=== PATIENT | female | born 1940 | race Caucasian/White ===

== ENCOUNTER 2017-11-04 07:59 | Day surgery (SDC) | payer MEDICARE, OTHER, SELFPAY ==
[2017-11-04 08:32] VITALS: BP 144/68; PULSE 78; RESP 18; TEMP 36.4; O2SAT 99
[2017-11-04 08:51] LABS: Bedside Glucose 262 mg/dL (70-110)
--- NOTE | 2017-11-04 09:35 | COLBX_PTH ---
PATIENT: NOELLE DIXON LOC: [facility] U#:[id number] AGE/SX: 77/F ROOM: RE11/04/[address]: Dr. Javier Dunbar MD : [id number] BED: DIS: 11/04/2017 SPEC #: [id number] RECD: 11/04/17 10:19 STATUS: JAZMÍN SUSAN #: [id number] COSTA: 11/04/17 09:[address]: Javier Dunbar DEPT: SURGICAL PATHOLOGY RECD BY: Itz Castillo ENTERED: 11/04/17 12:12 SP TYPE: COLON BX OT DR: Dr. Wili Dunbar III, MD Tissues: Sigmoid colon biopsy Procedures: Surgery Specimen Level IV HEADER OPERATION: Colonoscopy with biopsy PRE-OP DIAGNOSIS: History colon polyps TISSUE SUBMITTED: Proximal sigmoid polyp biopsy MICROSCOPIC DIAGNOSIS Proximal sigmoid colon polyp, biopsy: Fragments of tubular adenoma. AM:francisco 11/05/17 COMMENT Case has been reviewed in consultation with Dr. Rodriguez who concurs with the above diagnosis. IDC:SJ MICROSCOPIC DESCRIPTION Slides are reviewed. GROSS DESCRIPTION Received in fixative is one container labeled with the patient's name and designated proximal sigmoid polyp biopsy. The specimen consists of multiple irregular fragments of light murillo soft tissue that in aggregate measure 0.8 x 0.3 x 0.1 cm. The specimen is totally submitted in one cassette. / MILI:francisco 11/04/17 TC:5 CPT: 45265
--- NOTE | 2017-11-04 09:43 | PCM.OPRPT ---
Problem List (1) Personal history of colonic polyps Status: Acute Report of Operation Date of Procedure: 11/04/17 Pre-Operative Diagnosis: Personal history of colon polyps Post-Operative Diagnosis: Diminutive polypoid mucosa the proximal sigmoid colon extensive descending and sigmoid diverticulosis Surgery/Procedure Performed:: Colonoscopy with cold forcep biopsy of the proximal sigmoid colon Description of Surgical Findings:: Amount and informed consent was obtained. 77-year-old female was taken to the endoscopy suite. She underwent monitored anesthesia care. Digital rectal exam performed. Lax anal tone. Moderate hemorrhoidal changes. Flexible colonoscope inserted in the rectum advanced through a tortuous left colon. The scope was then readily advanced to the transverse colon by placing the patient supine I was able to get the scope to go to the cecum. The cecum ileocecal valve was nicely achieved. The scope was carefully withdrawn from the ascending colon transverse colon descending colon and sigmoid. Bowel prep was good. An incredibly careful inspection of the cecum was performed because the patient's history of previous colon polyps in that location. None were identified. There was moderately severe sigmoid and descending colon diverticulosis. A diminutive 5 mm diameter polypoid-like flat lesion of the proximal sigmoid identified. Cold forceps were used to sample and eradicate this area. The scope was retroflexed within the rectum the anorectal verge inspected moderate hemorrhoidal changes noted no active bleeding. Excess fluid nurse aspirated free the procedure was completed with the patient tolerated it well. Impression Diminutive polypoid mucosa of the proximal sigmoid colon with final pathology pending. Extensive sigmoid and descending diverticulosis. No evidence for acute pathology. The patient's previous colonoscopy was July 20, 2014. She will likely not require another colonoscopy for at least 5 years and then that will be health pending. The scope exam was started 0924. The cecum was reached at 0930.43. The procedure was completed at 0939.54. Cc: Dr. Wili Dunbar, III Javier Dunabr M.D., F.A.C.S. Type of Anesthesia:: MAC
[2017-11-04 09:45] VITALS: BP 111/50; BP 144/68; PULSE 72; RESP 15; TEMP 36.6; O2SAT 100
[2017-11-04 09:50] VITALS: BP 122/66; BP 144/68; PULSE 72; RESP 18; O2SAT 100
[2017-11-04 09:55] VITALS: BP 129/54; BP 144/68; PULSE 72; RESP 18; O2SAT 98
[2017-11-04 10:00] VITALS: BP 131/68; BP 144/68; PULSE 73; RESP 18; TEMP 36.2; O2SAT 100
[2017-11-04 10:29] VITALS: BP 144/68
== END 2017-11-04 10:30 | disposition home or self-care (01) ==
LOC: EN 08:00 → AC 08:02
PROVIDERS: Family Provider Family Medicine; PCP Family Medicine; Visit Provider Surgery
PROC: 0DJD8ZZ Inspection of Lower Intestinal Tract, Via Natural or Artificial Opening Endoscopic (ICD-10-PCS; CPT 45378; principal; 2017-11-04 09:10)
DX: D12.5 Benign neoplasm of sigmoid colon (principal); Z86.010 Personal history of colon polyps; K57.30 Diverticulosis of large intestine without perforation or abscess without bleeding; Z79.82 Long term (current) use of aspirin; Z79.899 Other long term (current) drug therapy; K21.9 Gastro-esophageal reflux disease without esophagitis; E11.9 Type 2 diabetes mellitus without complications; G47.30 Sleep apnea, unspecified; I10 Essential (primary) hypertension; Z87.891 Personal history of nicotine dependence; Z85.42 Personal history of malignant neoplasm of other parts of uterus
CPT/HCPCS: 45380; 82962; 88305; J7120

== ENCOUNTER 2019-03-15 11:39 | Emergency (ER) | payer MEDICARE, OTHER, SELFPAY ==
[2019-03-15 11:40] VITALS: BP 121/52; PULSE 114; RESP 16; TEMP 36.8; O2SAT 95; BMI 32.3
--- NOTE | 2019-03-15 11:59 | RAD_ITS ---
STUDY: X-RAY - PELVIS AND LEFT HIP REASON FOR EXAM: Left hip pain, fall. TECHNIQUE: 2 views of the pelvis and hip. COMPARISON: None. FINDINGS: There is vascular calcification. There are mildly dilated loops of small bowel. Normal bilateral iliac wings, sacroiliac joints and visualized sacrum. Normal bilateral superior and inferior pubic rami. Normal pubic symphysis. Normal bilateral ischial tuberosities. Normal visualized femoral head. Normal acetabulum. Normal hip joint. RAD/HIP, UNI W/ Pelvis 2-3 Views IMPRESSION: No demonstrated fracture. Mildly dilated loops of small bowel. Electronically Signed: Gallito Laboy MD at 14:28 EDT Tel , Service support ,
--- NOTE | 2019-03-15 11:59 | CT_ITS ---
STUDY: CT BRAIN WITHOUT CONTRAST REASON FOR EXAM: Female, 78 years old. Lost balance and fell RADIATION DOSAGE (If Supplied By Facility): CTDIvol = ( 44.99 ) mGy, DLP = ( 779.24 ) mGycm TECHNIQUE: Transaxial CT imaging of the brain was performed without administration of intravenous contrast material. Individualized dose optimization techniques were used for this CT. COMPARISON: No relevant priors. FINDINGS: EXAM DESCRIPTION: CT head without contrast CLINICAL HISTORY: 78 years Female, COMPARISON: None. TECHNIQUE: A CT scan of the head was performed without IV contrast in the axial plane. Coronal and sagittal reconstruction images were also obtained. This exam was performed according to our departmental dose-optimization program, which includes automated exposure control, adjustment of the mA and/or kV according to patient size and/or use of iterative reconstruction technique. FINDINGS: The avtar, medulla, and cerebellum appear to be normal. The ventricles and sulci are normal in size and shape. The basal ganglia appear to be normal. The inner and outer tables of the skull are intact. The frontal, ethmoid, maxillary, and sphenoid sinuses are normal. The mastoid air cells are normal. CT/Brain/Head without Contrast IMPRESSION: Normal CT scan of the head. Electronically Signed: Antonio Salamanca, at 13:25 EDT Tel , Service support ,
--- NOTE | 2019-03-15 14:51 | ED.DCSUM_ITS ---
- ER Visit Summary Date of Service: 03/15/19 Chief Complaint: Fall with hip pain History of Present Illness: The patient is a 78 F who states that she sustained a fall today when her legs gave out on her. She states she has a history of her legs giving out and falling. She tells me that she did strike the right side of her head in addition to the left hip. She states that typically she is not able to get up on her own and so she has quite help her up. This time she was transported here. She denies being on blood thinners. Physical Examination: Afebrile vital signs stable Gen: Well-nourished well-developed Head: Normocephalic atraumatic Eyes: Perrl EOMI ENT: TMs clear no rhinorrhea moist mucous membranes Neck: Supple no lymphadenopathy no JVD nontender CVS: Regular rate rhythm no murmurs normal S1-S2 Respiratory: No distress clear to auscultation bilaterally chest nontender Abdomen: Soft nontender nondistended normal bowel sounds no masses Back: Nontender Extremity: There is tenderness to palpation over the left greater trochanter. Negative logroll. No ecchymosis noted. No deformity noted. Neurovascular intact. Skin: Normal color no rash Neuro: alert orientated ?3 CN II-XII intact normal strength sensation Psych: Normal affect normal mood Test Results: CT brain and x-rays of the hip and pelvis were negative for acute. Emergency Department Course and Treatment: Patient has a walker at home therefore we got her up and she walks strongly with the walker here in the department. She will be discharged home instructions to follow-up with her doctors. Impression: 1. Fall 2. Left hip contusion 3. Head injury This note was generated with [employer] dictation software. It may contain incorrect words, spelling, and punctuation that were not noted in review of the chart prior to signing ED Disposition - Plan for ED Patient: Disposition: Home or Assisted Living Instructions: CONTUSION, Lower Extremity Referrals: Wili Dunbar III, MD [Primary Care Provider] - 1 Week Additional Instructions: Please use your walker while ambulating
[2019-03-15 15:11] LABS: Bedside Glucose 145 mg/dL (70-110)
== END 2019-03-15 15:47 | disposition home or self-care (01) ==
PROVIDERS: Emergency Provider Emergency Medicine; Family Provider Family Medicine; PCP Family Medicine
DX: S00.03XA Contusion of scalp, initial encounter (principal); S70.02XA Contusion of left hip, initial encounter; W01.0XXA Fall on same level from slipping, tripping and stumbling without subsequent striking against object, initial encounter; Y93.9 Activity, unspecified; Y92.9 Unspecified place or not applicable; Y99.9 Unspecified external cause status; Z91.81 History of falling; E11.9 Type 2 diabetes mellitus without complications; I10 Essential (primary) hypertension; Z79.82 Long term (current) use of aspirin; Z79.4 Long term (current) use of insulin; Z79.899 Other long term (current) drug therapy
CPT/HCPCS: 70450; 73502; 82962; 99284

== ENCOUNTER 2019-03-16 05:57 | Inpatient (IN) | payer MEDICARE, OTHER, SELFPAY ==
[2019-03-15 11:40] VITALS: BMI 32.3
[2019-03-16] VITALS (14 sets, daily range): BP systolic 107–123; BP diastolic 49–66; PULSE 82–95; RESP 16–18; TEMP 36.7–38.8; O2SAT 96–100; BMI 30.6; BMI 30.3; BMI 30.4
--- NOTE | 2019-03-16 06:05 | RAD_ITS ---
STUDY: X-RAY - LEFT ANKLE REASON FOR EXAM: Female, 78 years old. Pain, trauma TECHNIQUE: 3 view(s) of the ankle. COMPARISON: None. FINDINGS: There is an oblique fracture through the distal one third diaphysis of the fibula with minimal displacement. The fracture extends distally into the proximal metaphysis. There are avulsion fractures through the inferior tip of the medial malleolus. The largest largest fragment measuring 3 mm. There is significant soft tissue edema.. There is osteopenia. Evaluation of the posterior aspect of the calcaneus is nondiagnostic and is excluded from the [id number]. RAD/Ankle min 3 Views IMPRESSION: Oblique fracture through the distal one third diaphysis of the fibula with minimal displacement, the fracture extends distally into the proximal metaphysis Avulsion fractures through the inferior tip of the medial malleolus with multiple small fragments largest measuring 3 mm Significant soft tissue edema Osteopenia Evaluation of the posterior calcaneus is nondiagnostic and is excluded from the [id number]. Electronically Signed: Javier Landers, at 6:59 EDT Tel , Service support ,
--- NOTE | 2019-03-16 06:06 | ED.VIS.GEN ---
History of Present Illness Chief Complaint: Fall Informant: Patient Narrative: Stated that she was having difficulty standing from the toilet. She grabbed the towel rack to help her stand up and it fell off the wall. She fell into the side of the bathtub. She injured her left ankle. She was brought in by EMS due to her injury. She takes a baby aspirin in the morning. She was seen in the emergency department yesterday after her legs gave out as well. She had a head contusion and hip contusion. There is no fracture seen. Currently she denies injury elsewhere except for a small skin tear to her right forearm. - Past Medical History (1) Personal history of colonic polyps Status: Acute Past Medical History - Allergies and Home Meds Allergies/Adverse Reactions: Allergies candesartan cilexetil [From Atacand] Adverse Reaction (Verified 10/30/17 08:27) Abd cramps/diarrhea lisinopril Adverse Reaction (Verified 10/30/17 08:27) Vomiting losartan potassium [From Cozaar] Adverse Reaction (Verified 10/30/17 08:27) Other pioglitazone HCl [From Actos] Adverse Reaction (Verified 10/30/17 08:27) Other prednisone Adverse Reaction (Verified 10/30/17 08:27) Swelling simvastatin [From Zocor] Adverse Reaction (Verified 10/30/17 08:27) Other sitagliptin phosphate [From Januvia] Adverse Reaction (Verified 10/30/17 08:27) Upset Stomach Sulfa (Sulfonamide Antibiotics) Adverse Reaction (Verified 10/30/17 08:27) Other Primary Care Physician: Wili Dunbar III, MD [Primary Care Provider] - Prior records reviewed: Yes Past Medical History: - - Problem list - see Surgical History: - - Reviewed Smoking Status: Former smoker Alcohol: None Drugs: None Review of Systems General: Denies: Chills, Fever, Sweats Eyes: Denies: Visual changes - bilaterally, Diplopia ENT: Denies: Rhinorrhea, Sore throat Cardiovascular: Denies: Chest pain, Palpitations Respiratory: Denies: Dyspnea, Cough, Dyspnea on exertion Gastrointestinal: Denies: Abdominal pain, Nausea, Vomiting, Diarrhea, Melena, Hematochezia Genitourinary: Denies: Dysuria, Hematuria, Frequency Musculoskeletal: Reports: Extremity Pain - Left ankle. Denies: Back pain Skin: Denies: Rash, Wounds Neurological: Denies: Headache, Weakness, Numbness Physical Exam Vital Signs/Narrative: Vital Signs Temp Pulse Resp BP Pulse Ox 03/16/19 05:58 98.0 F 85 16 123/66 H 100 General: Well nourished, Well developed, No Acute Distress Head: Normocephalic, Atraumatic Eyes: Perrl, EOMI ENT: Moist mucous membranes, No rhinorrhea Neck: Supple, Nontender Cardiovascular: Regular rate, Regular rhythm, No murmurs Respiratory: No distress, CTA bilaterally, Chest nontender Abdomen: Soft, Nontender, Nondistended, Normal bowel sounds Back: Nontender, Normal Inspection Extremities: Tenderness - Redness with mild swelling to the diffuse left ankle. Mild decreased range of motion secondary to pain. Distal neurovascular intact.. Negative for: Nontender, No edema Skin: Normal color, No rash, - - Small skin tear right forearm Neurological: Alert, Oriented x3, Cranial nerves II-XII grossly intact, Normal Strength, Normal Sensation Psychological: Normal affect, Normal Mood Diagnostic/Tx/Re-eval - Medical Decision Making Patient given Tylenol ice pack. X-ray of the ankle obtained. X-ray shows a oblique fibula fracture. Placed in a walking boot. Her house is not wheelchair accessible. She cannot use a walker with one leg. She is already had a fall wrist. This is her second fall in 2 days. Patient would like to be admitted for rehab. Discussed with the hospitalist and she will be admitted. ED Disposition - Plan for ED Patient: Disposition: Home or Assisted Living Diagnosis: Closed left ankle fracture, Inability to ambulate due to ankle or foot
[2019-03-16] MEDS: Acetaminophen 325 MG Tablet 650 MG PO (06:11)
--- NOTE | 2019-03-16 06:36 | ED.RN ---
ASKED DR. FELIZ IF WE NEEDED LABS DUE TO PT DOWNTIME. NO ORDERS AT THIS TIME. WILL MONITOR THE PT.
--- NOTE | 2019-03-16 06:43 | ED.RN ---
ASKED DR. FELIZ IF WE NEEDED LABS DUE TO PT DOWNTIME. NO ORDERS AT THIS TIME. WILL MONITOR THE PT.
--- NOTE | 2019-03-16 08:00 | PCM.HP.STD ---
Problem List (1) HTN (hypertension) Status: Chronic Qualifiers: Hypertension type: essential hypertension Qualified Code(s): I10 - Essential (primary) hypertension (2) Diabetes mellitus type 2 in obese Status: Chronic (3) GERD (gastroesophageal reflux disease) Status: Chronic (4) HLD (hyperlipidemia) Status: Chronic (5) Murmur, cardiac Status: Chronic (6) Endometrial cancer Status: Chronic Comment: has had MARYANA/BSO and recently a mass in the vagina was biopsied....path is pending (7) Venous insufficiency of both lower extremities Status: Chronic (8) KIMBERLEE (obstructive sleep apnea) Status: Chronic Comment: not compliant with CPAP (9) Obesity (BMI 30.0-34.9) Status: Chronic (10) Lower extremity weakness Status: Chronic Qualifiers: Laterality: bilateral Qualified Code(s): R29.898 - Other symptoms and signs involving the musculoskeletal system (11) Frequent falls Status: Chronic (12) Osteoarthritis Status: Chronic (13) Glaucoma Status: Chronic (14) Closed left ankle fracture Status: Acute (15) Diverticulosis Status: Chronic History of Present Illness Date of Admission: 03/16/19 Chief Complaint: pain in the left leg distal to the knee after a fall The patient is a 78 year old F with a past medical history of hypertension, diabetes mellitus type 2, obesity, GERD, hyperlipidemia, heart murmur, endometrial cancer (S/P MARYANA with BSO, oncologist recently found a mass in the vagina and she is awaiting the results of a bx. ), bilateral lower extremity venous insufficiency, obstructive sleep apnea not compliant with CPAP, lower extremity weakness with frequent falls, osteoarthritis, glaucoma diverticulosis who was brought to the emergency department at [facility] on 03/16/2019 by EMS after a fall getting off her toilet. She fell into the side of the bathtub and she was complaining of left ankle pain. She also struck her head and there was a contusion present. X-ray of the left ankle showed an oblique fracture through the distal one third diaphysis of the fibula with minimal displacement. She was also seen in the emergency department on 03/15/2019 after a fall and was sent home when x-rays revealed no fractures or dislocations. An x-ray of the pelvis and hip showed no demonstrated fractures. The right tib-fib showed no demonstrated fracture. There was no lab available at the time of my exam in the emergency department and it will be ordered following admission. She was admitted to [facility] on telemetry with a diagnosis of frequent falls and left ankle fracture with inability to walk. She lives alone and will likely need a intermediate facility at discharge. Consult will be placed with Dr. Driver. Past Medical History Past Medical History (Chronic Problems): Chronic Problems (Last Reviewed 03/16/19 @ 08:06 by Jennifer Crow DO) HTN (hypertension) (Chronic) Diabetes mellitus type 2 in obese (Chronic) GERD (gastroesophageal reflux disease) (Chronic) HLD (hyperlipidemia) (Chronic) Murmur, cardiac (Chronic) Endometrial cancer (Chronic) has had MARYANA/BSO and recently a mass in the vagina was biopsied....path is pending Venous insufficiency of both lower extremities (Chronic) KIMBERLEE (obstructive sleep apnea) (Chronic) not compliant with CPAP Obesity (BMI 30.0-34.9) (Chronic) Lower extremity weakness (Chronic) Frequent falls (Chronic) Osteoarthritis (Chronic) Glaucoma (Chronic) Diverticulosis (Chronic) Medical History: Medical History (Last Reviewed 03/17/19 @ 18:28 by Jennifer Crow DO) Cough R05 Diabetes E11.9 GERD (gastroesophageal reflux disease) K21.9 Heart murmur R01.1 Sleep apnea G47.30 HTN (hypertension) I10 Allergies candesartan cilexetil [From Atacand] Adverse Reaction (Verified 10/30/17 08:27) Abd cramps/diarrhea lisinopril Adverse Reaction (Verified 10/30/17 08:27) Vomiting losartan potassium [From Cozaar] Adverse Reaction (Verified 10/30/17 08:27) Other pioglitazone HCl [From Actos] Adverse Reaction (Verified 10/30/17 08:27) Other prednisone Adverse Reaction (Verified 10/30/17 08:27) Swelling simvastatin [From Zocor] Adverse Reaction (Verified 10/30/17 08:27) Other sitagliptin phosphate [From Januvia] Adverse Reaction (Verified 10/30/17 08:27) Upset Stomach Sulfa (Sulfonamide Antibiotics) Adverse Reaction (Verified 10/30/17 08:27) Other Home Medications: Ambulatory Orders Medication Instructions Recorded Aspirin [Aspirin, Baby] 81 mg PO DAILY@0800 04/17/13 Lorazepam [Ativan] 1 mg PO QHS PRN PRN 04/17/13 Nizatidine [Axid] 150 mg PO BID PRN PRN 04/17/13 Nystatin [Mycostatin] 1 applic TOPICAL 4X/DAY PRN 04/17/13 metFORMIN HCl [Glucophage] 1,000 mg PO BIDCM 04/17/13 atorvastatin 10 mg tablet 10 mg PO QHS 10/15/17 insulin aspart (U-100) 100 unit/mL 10 unit SC TIDCM 10/15/17 (3 mL) subcutaneous pen insulin glargine (U-100) 100 30 unit SC QHS 10/15/17 unit/mL subcutaneous solution meclizine 25 mg tablet 25 mg PO TID PRN 10/15/17 Latanoprost 1 drop EACH EYE QHS 10/30/17 Dulaglutide [Trulicity] 1.5 mg SQ QWEEK 03/16/19 Hydrochlorothiazide [Hctz] 12.5 mg PO DAILY 03/16/19 Metoprolol Succinate 100 mg PO BID 03/16/19 Ranitidine [Zantac] 150 mg PO BIDCM 03/16/19 Triamcinolone 0.1% Cream [Kenalog] 1 applic TOPICAL BID PRN 03/16/19 Surgical History: Surgical History (Last Reviewed 03/17/19 @ 18:28 by Jennifer Crow DO) S/P MARYANA-BSO Z90.710, Z90.722, Z90.79 S/P hemorrhoidectomy Z98.890, Z87.19 Status post colonoscopy Z98.890 uterine ablation uterine ca Surgical History: - - Reviewed Psychiatric History: No pertinent psych hx 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 Denies: Anorexia, Chills, Fever, Weight Change Eyes: Denies: Blurred vision HEENT: Denies: Head Aches, Sinus Congestion, Sinus Drainage, Sore Throat Cardiovascular: Reports: Edema - chronic, worse at the end of the day and improves overnight. Denies: Chest Pain, Light Headedness, Palpitations Respiratory: Reports: Shortness of breath upon exertion, - - LIN. Denies: Cough, Sputum production Gastrointestinal: Denies: Abdominal Pain, Constipation, Diarrhea, Nausea, Vomiting Genitourinary: Denies: Dysuria Musculoskeletal: Reports: Leg Pain - BL in the popliteal fossa and in the lateral distal LE BL. Denies: Joint Pain, Joint Tenderness Skin: Denies: Rash, Wounds Neurological: Reports: - - No hx of CVA. Denies: Focal weakness, Headaches, Numbness, Tingling, Seizures Psychiatric: Denies: Anxiety, Depression, Homicidal Ideations, Suicidal Ideations Hematologic/ Lymphatic: Denies: Easy Bruising, Easy Bleeding, Hx of blood clot VTE Information - Inpt Only VTE Present on Admission: No VTE Mechan Device Prophylaxis: SCD's, Knee High KIRAN Hose VTE Pharm Prophylaxis ordered?: Yes Patient Problems: Active and Suspected Problems (Last Reviewed 03/16/19 @ 08:06 by Jennifer Crow DO) Closed left ankle fracture (Acute) Inability to ambulate due to ankle or foot (Acute) - Physical Exam General: Alert, Oriented x3, Cooperative, Well developed, Well nourished, - - having pain with any movement of the LLE HEENT: Atraumatic, PERRLA, EOMI, Normocephalic Oral: Dry Mucosa, - - tongue has a white coating Neck: Supple, No JVD, Negative Carotid Bruits, No Nodes, Trachea Midline, - - carotids have decreased pulse volume BL Lungs: Clear to auscultation - anterior and lateral, Normal air movement Cardiovascular: Regular rate, Regular Rhythm, Normal S1, Normal S2, Murmur - at the second RICS, No rub noted, No Gallop Abdomen: Bowel Sounds Present, Soft, Non Tender, Non-Distended, - - no guarding with palpation Extremities: No clubbing, No cyanosis, No edema, Capillary Refill Less than 3 Seconds, Diminished Peripheral Pulses - The R DP is 2-3/3 but the foot is cool to the touch. The pedal pulses in the Left foot are not palpable and the popliteal is also [employer]. The femoral pulse is very weak Skin: No rashes, No breakdown Musculoskeletal: Tenderness - Left ankle and the R LE Neurological: Cranial nerves II-XII grossly intact Psych/Mental Status: Normal Affect, Appropriate Vital Signs Temp Pulse Resp BP Pulse Ox 98.4 F 82 16 118/49 L 100 03/16/19 07:41 03/16/19 07:41 03/16/19 07:41 03/16/19 07:41 03/16/19 07:41 Oxygen Delivery Method Room Air Weight: 182 lb 6.4 oz Body Mass Index (BMI) 30.3 Finger Stick Blood Glucose 145 Assessment/Plan All Active Problems (Last Reviewed 03/16/19 @ 08:06 by Jennifer Crow DO) Personal history of colonic polyps (Acute) Closed left ankle fracture (Acute) Inability to ambulate due to ankle or foot (Acute) Impressions 1. Acute traumatic left ankle fracture. Not splinted in the emergency department. Will consult Dr. Driver's recommendations for treatment. Pain medication has been ordered and also a muscle relaxer since she is having muscle spasms. 2. Frequent falls. Patient lives alone and is 78 years old and complains of leg weakness. Suspect she will need to go to a intermediate facility at discharge she will be nonweightbearing on the left lower extremity. 3. Chronic problems include hypertension, diabetes mellitus type 2, obesity, GERD, hyperlipidemia, heart murmur, history of endometrial cancer, bilateral venous insufficiency of the lower extremities, obstructive sleep apnea noncompliant with CPAP, osteoarthritis, glaucoma and diverticulosis - resume home meds. CBC, CMP, Mag and Phos. UA - straight cath Furthier recommendations to follow when the lab is resulted. Code Visit Inpatient E&M: 12225 Init Hosp L2
--- NOTE | 2019-03-16 08:02 | EKG12_ITS ---
Test Reason : Blood Pressure : / mmHG Vent. Rate : 081 BPM Atrial Rate : 081 BPM P-R Int : 180 ms QRS Dur : 082 ms QT Int : 412 ms P-R-T Axes : 059 050 069 degrees QTc Int : 478 ms Normal sinus rhythm Septal infarct , age undetermined Abnormal ECG When compared with ECG of 28-OCT-2011 13:40, Septal infarct is now Present Confirmed by RAVINDER LATHAM, ELVIN ([id number]), photography editor DALTON MACARIO ([id number]) on 03/24/2019 10:31:47 AM Referred By: Aria CHAN Confirmed By:SABRINA CASTELLON MD
--- NOTE | 2019-03-16 08:02 | RAD_ITS ---
STUDY: X-RAY - RIGHT TIBIA AND FIBULA REASON FOR EXAM: Lower leg pain, 2 falls. TECHNIQUE: 2 view(s) of the tibia and fibula were obtained. COMPARISON: None. FINDINGS: Normal visualized tibia. Normal visualized fibula. There is soft tissue calcification of the posterior aspect of the calf. RAD/Tibia & Fibula 2 Views IMPRESSION: Soft tissue calcification. No demonstrated fracture. Electronically Signed: Gallito Laboy MD at 14:38 EDT Tel , Service support ,
--- NOTE | 2019-03-16 08:02 | RAD_ITS ---
STUDY: X-RAY - PELVIS AND LEFT HIP REASON FOR EXAM: Left hip pain, 2 falls. TECHNIQUE: 2 views of the pelvis and hip. COMPARISON: Radiographs 03/15/2019. FINDINGS: There is vascular calcification. Normal bilateral iliac wings, sacroiliac joints and visualized sacrum. Normal bilateral superior and inferior pubic rami. Normal pubic symphysis. Normal bilateral ischial tuberosities. Normal visualized femoral head. Normal acetabulum. Normal hip joint. RAD/HIP, UNI W/ Pelvis 2-3 Views IMPRESSION: No demonstrated fracture. Electronically Signed: Gallito Laboy MD at 14:59 EDT Tel , Service support ,
--- NOTE | 2019-03-16 08:02 | ECHOD_ITS ---
Reason For Study: Murmur, Lt. ankle fracture Procedure This was a 2D Doppler, Color Flow transthoracic echocardiogram. Patient scanned supine due to left ankle fracture. Exam performed portable in patient room. Left Ventricle Normal LV size. Left ventricular systolic function is normal. The estimated ejection fraction is 65 %. Diastolic function is indeterminate. No regional wall motion abnormalities noted. Right Ventricle Normal RV size. Normal systolic function. Atria Normal left atrium. Normal right atrium. No doppler evidence for ASD. Mitral Valve There is moderate mitral annular calcification. Extension of the mitral annular calcification onto the posterior mitral valve leaflet. Trivial mitral valve insufficiency. Tricuspid Valve Normal tricuspid valve. Trivial tricuspid valve insufficiency. Aortic Valve Trisinus/trileaflet aortic valve. Moderate focal aortic valve calcification. Mild aortic stenosis. Pulmonic Valve The pulmonic valve is not well visualized. Great Vessels Normal sized aortic root. Pericardium/Pleural No pericardial effusion. MMode/2D Measurements & Calculations LVIDd: 3.1 cm IVSd: 0.97 cm LVOT diam: 1.9 cm LVIDs: 2.1 cm LVPWd: 0.82 cm LVOT area: 2.8 cm2 RVDd: 3.3 cm FS: 33.0 % Ao root diam: 3.2 cm LAV(MOD-bp): 44.8 ml EDV(MOD-sp4): 56.0 ml LAV(MOD-bp) Indexed: 23.6 ml/m2 ESV(MOD-sp4): 17.8 ml LAV(MOD-sp2): 46.6 ml EF(MOD-sp4): 68.3 % LAV(MOD-sp4): 42.9 ml EDV(MOD-sp2): 62.0 ml SV(MOD-sp4): 38.3 ml SV(MOD-sp2): 47.4 ml EF(MOD-sp2): 76.5 % LA A4 area: 16.6 cm2 LA dimension(2D): 3.0 cm RA A4 area: 11.6 cm2 Doppler Measurements & Calculations MV E max hossein: 106.6 cm/sec Lat Peak E' Hossein: 9.9 cm/sec Med Peak E' Hossein: 6.3 cm/sec MV A max hossein: 132.4 cm/sec E/E' lat: 10.8 E/E' med: 16.8 MV E/A: 0.81 MV V2 max: 145.2 cm/sec Ao V2 max: 195.5 cm/sec LV V1 max: 136.1 cm/sec MV max P.4 mmHg Ao max P.3 mmHg LV V1 max P.4 mmHg MV V2 mean: 102.5 cm/sec Ao V2 mean: 130.8 cm/sec LV V1 mean P.7 mmHg MV mean P.5 mmHg Ao mean P.7 mmHg LV V1 mean: 91.9 cm/sec MV V2 VTI: 34.8 cm Ao V2 VTI: 43.2 cm LV V1 VTI: 30.3 cm MVA(VTI): 2.4 cm2 JEANETTE(I,D): 1.9 cm2 JEANETTE(V,D): 1.9 cm2 SV(LVOT): 84.1 ml PA V2 max: 97.3 cm/sec MV P1/2t-pr_phl: 76.0 msec Interpretation Summary Left ventricular systolic function is normal. The estimated ejection fraction is 65 %. There is moderate mitral annular calcification. Extension of the mitral annular calcification onto the posterior mitral valve leaflet. Trivial mitral valve insufficiency. Trivial tricuspid valve insufficiency. Mild aortic stenosis. Diastolic function is indeterminate. Ordering Physician: Jennifer Crow Referring Physician: EMILIA Dunbar M.D. Performed By: Jovita Garcia RDCS
--- NOTE | 2019-03-16 08:10 | ADU_ITS ---
Reason For Study: cool left foot, decreased pulse in left foot Right Velocities Left Velocities Ext. Iliac Artery, dist = 190.7 cm./sec. Ext Iliac Artery, dist = 289.7 cm./sec. Common Femoral Artery, mid = 185.4 cm./sec. Common Femoral Artery, mid = 238.0 cm./sec. Supf Femoral Artery, prox = 164.7 cm./sec. Supf. Femoral Artery, prox = 125.8 cm./sec. Supf Femoral Artery, mid = 177.6 cm./sec. Supf. Femoral Artery, mid = 379.3 cm./sec. Supf Femoral Artery, dist. = 110.3 cm./sec. Supf. Femoral Artery, dist = 100.1 cm./sec. Profunda Femoral Artery = 169.8 cm./sec. Profunda Femoral Artery = 189.5 cm./sec. Popliteal Artery, prox. = 99.9 cm./sec. Popliteal Artery, proximal, = 84.7 cm./sec. Popliteal Artery, mid = 62.8 cm./sec. Popliteal Artery, mid = 93.5 cm./sec. Popliteal Artery, dist = 69.4 cm./sec. Popliteal Artery, distal = 65.0 cm./sec. Post. Tibial Artery, prox = 89.1 cm./sec. Unable to image below the knee due to cast. Post. Tibial Artery, mid = 73.7 cm./sec. Post. Tibial Artery, dist = 78.1 cm./sec. Peroneal Artery, prox = 58.3 cm./sec. Peroneal Artery, mid = 56.1 cm./sec. Peroneal Artery,dist = 51.7 cm./sec. Ant. Tibial Artery, prox = 95.5 cm./sec. Ant. Tibial Artery, mid = 69.2 cm./sec. Ant. Tibial Artery, dist = 102.1 cm./sec. Interpretation Summary The arteries in the right lower extremity appear patent, without findings to suggest significant stenosis (0-19%). There appears to be mild stenosis (20-49%) in the left external iliac artery and common femoral artery. There appears to be 50-99% stenosis in the left mid-superficial femoral artery. The arterial tree below the left knee could not be assessed due to the presence of a cast. Ordering Physician: Jennifer Crow Performed By: Jose De Jesus Sanchez RVT
[2019-03-16 08:56] LABS: Differential Indicated SCAN CRITERIA MET
[2019-03-16 08:57] LABS: Absolute Lymphocyte Count 0.34 X10^3/uL (0.83-4.51); Basophil# 0.02 X10^3/uL; Basophil% 0.3 % (0-1); Lymphocyte # 0.34 X10^3/ul (4.0); Lymphocyte % 5.1 % (19-41); Mean Corp Hgb Conc 32.4 g/dL (32-36); Mean Corpuscular Hgb 24.8 pg (27.0-32.0); Mean Corpuscular Volume 76.4 fL (81-99); Mean Platelet Vol. 10.3 fl (6.2-12.0); Monocyte# 1.22 X10^3/uL; Monocyte% 18.2 % (0-10); NRBC Flagged by Analyzer 0 % (0-5); Neutrophil # 4.95 X10^3/uL (2.7-7.7); POSITIVE DIFFERENTIAL YES; POSITIVE MORPHOLOGY YES; Platelet Count 67 K/mm3 (150-450); RBC Distribution Width CV 15.9 % (11.6-14.6); RBC Distribution Width SD 43.9 fl (35.1-43.9); Red Blood Count 4.84 M/mm3 (4.2-5.4); White Blood Count 6.7 K/mm3 (4.4-11.0)
[2019-03-16 09:00] LABS: Bedside Glucose 195 mg/dL (70-110)
[2019-03-16 09:03] LABS: International Normalized Ratio 1.3; Prothrombin Time (Protime)PT. 15.5 SECONDS (11.7-14.9)
[2019-03-16 09:04] LABS: Partial Thromboplast Time 35.8 Seconds (24.1-36.2)
[2019-03-16 09:11] LABS: ALB/GLOB Ratio 0.8 RATIO (0.9-2.4); AST(SGOT) 81 U/L (15-37); Alanine Aminotransfer ALT/SGPT 39 U/L (13-56); Albumin, Serum 2.9 g/dL (3.2-5.0); Alkaline Phosphatase 83 U/L (45-117); Anion Gap 8 (5-15); BUN 24 mg/dL (7-18); BUN/Creat Ratio 23.1 RATIO (10-20); Calcium,Total 8.8 mg/dL (8.5-10.1); Chloride 99 mmol/L (98-107); Cholesterol 79 mg/dL (200); Creatinine, Serum 1.04 mg/dL (0.55-1.02); EST Glomerular Filtration Rate 54 mL/min (>60); Est Glom Filt Rate - Afr Amer 66 mL/min (>60); Estimated Creatinine Clearance 38.82 ml/min; Globulin 3.5 g/dL (2.2-4.2); Glucose 183 mg/dL (74-106); High Density Lipoprotein 24 mg/dL; Magnesium 1.8 mg/dL (1.6-2.6); Potassium 3.6 mmol/L (3.5-5.1); Protein, Total 6.4 g/dL (6.4-8.2); Sodium Level 131 mmol/L (136-145); Triglycerides 95 mg/dL; Very Low Density Lipoprotein 19 mg/dL (5-40)
[2019-03-16] MEDS: 0.9% Normal Saline 1,000 ML 75 ML IV (09:41)
--- NOTE | 2019-03-16 10:03 | PCM.CONS.GEN ---
Reason for Consult Date of Consultation: 03/16/19 History of Present Illness: The patient is a 78 year old F had a fall getting off the commode 03/15/2019 patient was admitted to the hospital no splint was applied by the emergency room consultation on hospital floor for nondisplaced Valenzuela B left distal fibula fracture. denies other injury. Past Medical History Past Medical History (Chronic Problems): Chronic Problems (Last Reviewed 03/16/19 @ 08:06 by Jennifer Crow DO) HTN (hypertension) (Chronic) Diabetes mellitus type 2 in obese (Chronic) GERD (gastroesophageal reflux disease) (Chronic) HLD (hyperlipidemia) (Chronic) Murmur, cardiac (Chronic) Endometrial cancer (Chronic) has had MARYANA/BSO and recently a mass in the vagina was biopsied....path is pending Venous insufficiency of both lower extremities (Chronic) KIMBERLEE (obstructive sleep apnea) (Chronic) not compliant with CPAP Obesity (BMI 30.0-34.9) (Chronic) Lower extremity weakness (Chronic) Frequent falls (Chronic) Osteoarthritis (Chronic) Glaucoma (Chronic) Diverticulosis (Chronic) Medical History: Medical History (Last Reviewed 03/16/19 @ 08:06 by Jennifer Crow DO) Cough R05 Diabetes E11.9 GERD (gastroesophageal reflux disease) K21.9 Heart murmur R01.1 Sleep apnea G47.30 HTN (hypertension) I10 Allergies candesartan cilexetil [From Atacand] Adverse Reaction (Verified 10/30/17 08:27) Abd cramps/diarrhea lisinopril Adverse Reaction (Verified 10/30/17 08:27) Vomiting losartan potassium [From Cozaar] Adverse Reaction (Verified 10/30/17 08:27) Other pioglitazone HCl [From Actos] Adverse Reaction (Verified 10/30/17 08:27) Other prednisone Adverse Reaction (Verified 10/30/17 08:27) Swelling simvastatin [From Zocor] Adverse Reaction (Verified 10/30/17 08:27) Other sitagliptin phosphate [From Januvia] Adverse Reaction (Verified 10/30/17 08:27) Upset Stomach Sulfa (Sulfonamide Antibiotics) Adverse Reaction (Verified 10/30/17 08:27) Other Home Medications: Ambulatory Orders Medication Instructions Recorded Aspirin [Aspirin, Baby] 81 mg PO DAILY@0800 04/17/13 Lorazepam [Ativan] 1 mg PO QHS PRN PRN 04/17/13 Nizatidine [Axid] 150 mg PO BID PRN PRN 04/17/13 Nystatin [Mycostatin] 1 applic TOPICAL 4X/DAY PRN 04/17/13 metFORMIN HCl [Glucophage] 1,000 mg PO BIDCM 04/17/13 atorvastatin 10 mg tablet 10 mg PO QHS 10/15/17 insulin aspart (U-100) 100 unit/mL 10 unit SC TIDCM 10/15/17 (3 mL) subcutaneous pen insulin glargine (U-100) 100 30 unit SC QHS 10/15/17 unit/mL subcutaneous solution meclizine 25 mg tablet 25 mg PO TID PRN 10/15/17 Latanoprost 1 drop EACH EYE QHS 10/30/17 Dulaglutide [Trulicity] 1.5 mg SQ QWEEK 03/16/19 Hydrochlorothiazide [Hctz] 12.5 mg PO DAILY 03/16/19 Metoprolol Succinate 100 mg PO BID 03/16/19 Ranitidine [Zantac] 150 mg PO BIDCM 03/16/19 Triamcinolone 0.1% Cream [Kenalog] 1 applic TOPICAL BID PRN 03/16/19 Surgical History: Surgical History (Last Updated 03/16/19 @ 08:07 by Jennifer Crow DO) S/P MARYANA-BSO Z90.710, Z90.722, Z90.79 S/P hemorrhoidectomy Z98.890, Z87.19 Status post colonoscopy Z98.890 uterine ablation uterine ca Surgical History: - - Reviewed Psychiatric History: 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 History: endometrial cancer Lives: Alone, - - no children Smoking Status: Former smoker - quit in the and prior to that she smoked for 30 years Tobacco Use: Non-smoker Alcohol: None Drugs: None - *Family History Maternal History Items: Cancer - breast in her mother Sibling History Items: - - 2 brothers with leukemia Patient Problems: Active and Suspected Problems (Last Reviewed 03/16/19 @ 08:06 by Jennifer Crow DO) Closed left ankle fracture (Acute) Inability to ambulate due to ankle or foot (Acute) - Physical Exam General: Oriented x3, Cooperative, No apparent distress Extremities: - - 2/4 doralis pedis and posterior tibial pulse. minimal swelling. no ecchymosis medially. mild tenderness medially. TTP of fx site. no open wounds. compartments soft. Vital Signs Temp Pulse Resp BP Pulse Ox 98.4 F 82 16 118/49 L 100 03/16/19 07:41 03/16/19 07:41 03/16/19 07:41 03/16/19 07:41 03/16/19 07:41 Oxygen Delivery Method Room Air Weight: 182 lb 6.4 oz Body Mass Index (BMI) 30.3 Finger Stick Blood Glucose 145 Laboratory Tests Past 24 Hrs 03/16/19 03/16/19 03/16/19 08:40 08:40 08:40 WBC 6.7 RBC 4.84 Hgb 12.0 Hct 37.0 MCV 76.4 L MCH 24.8 L MCHC 32.4 RDW Std Deviation 43.9 RDW Coeff of Honey 15.9 H Plt Count 67 L MPV 10.3 Immature Gran % (Auto) 2.400 H Neut % (Auto) 74.0 H Lymph % (Auto) 5.1 L [place] % (Auto) 18.2 H Eos % (Auto) 0.0 Baso % (Auto) 0.3 Absolute Neuts (auto) 5.0 Absolute Lymphs (auto) 0.34 L Nucleated RBC % 0 Differential Comment COMMENT PT INR APTT Sodium 131 L Potassium 3.6 Chloride 99 Carbon Dioxide 24.0 Anion Gap 8 BUN 24 H Creatinine 1.04 H Estim Creat Clear Calc 38.82 Est GFR (MDRD) Af Amer 66 Est GFR (MDRD) Non-Af 54 L BUN/Creatinine Ratio 23.1 H Glucose 183 H Hemoglobin A1c 7.0 H Calcium 8.8 Magnesium 1.8 Total Bilirubin 1.40 H AST 81 H ALT 39 Alkaline Phosphatase 83 Total Protein 6.4 Albumin 2.9 L Globulin 3.5 Albumin/Globulin Ratio 0.8 L Triglycerides 95 Cholesterol 79 LDL Cholesterol 36 VLDL Cholesterol 19 HDL Cholesterol 24 L Urine Color Urine Clarity Urine pH Ur Specific Barry Urine Protein Urine Glucose (UA) Urine Ketones Urine Occult Blood Urine Nitrite Urine Bilirubin Urine Urobilinogen Ur Leukocyte Esterase Urine RBC Urine WBC Ur Squamous Epith Cells Urine Bacteria Urine Mucus 03/16/19 03/16/19 08:40 09:50 WBC RBC Hgb Hct MCV MCH MCHC RDW Std Deviation RDW Coeff of Honey Plt Count MPV Immature Gran % (Auto) Neut % (Auto) Lymph % (Auto) [place] % (Auto) Eos % (Auto) Baso % (Auto) Absolute Neuts (auto) Absolute Lymphs (auto) Nucleated RBC % Differential Comment PT 15.5 H INR 1.3 APTT 35.8 Sodium Potassium Chloride Carbon Dioxide Anion Gap BUN Creatinine Estim Creat Clear Calc Est GFR (MDRD) Af Amer Est GFR (MDRD) Non-Af BUN/Creatinine Ratio Glucose Hemoglobin A1c Calcium Magnesium Total Bilirubin AST ALT Alkaline Phosphatase Total Protein Albumin Globulin Albumin/Globulin Ratio Triglycerides Cholesterol LDL Cholesterol VLDL Cholesterol HDL Cholesterol Urine Color Pending Urine Clarity Pending Urine pH Pending Ur Specific Barry Pending Urine Protein Pending Urine Glucose (UA) Pending Urine Ketones Pending Urine Occult Blood Pending Urine Nitrite Pending Urine Bilirubin Pending Urine Urobilinogen Pending Ur Leukocyte Esterase Pending Urine RBC Pending Urine WBC Pending Ur Squamous Epith Cells Pending Urine Bacteria Pending Urine Mucus Pending POC Glucose 03/16/19 08:54 POC Glucose 195 H Assessment/Plan All Active Problems (Last Reviewed 03/16/19 @ 08:06 by Jennifer Crow DO) Personal history of colonic polyps (Acute) Closed left ankle fracture (Acute) Inability to ambulate due to ankle or foot (Acute) left distal fibula non-displaced valenzuela b fracture. short leg non-walking cast applied will have nursing apply cast shoe so pt can rest on the ground but is to be non-weight bearing to left lower extremity f/u 1 weeek for repeat x-ray in cast in the office. strict elevation when not working with physical therapy
[2019-03-16 10:12] LABS: Color, Urine Amber (Yellow); Glucose, Dipstick Normal (Normal); Ketone-Dipstick 50 mg/dl (Negative); Leukocyte Esterase-Dipstick 500 /ul (Negative); Nitrite-Dipstick Negative (Negative); Occult Blood-Urine 150 /ul (Negative); Protein-Dipstick 30 mg/dl (Negative); Urine Bilirubin Dipstick Negative (Negative); Urine Clarity Sl. Cloudy (Clear); Urine Urobilinogen Normal (Normal)
[2019-03-16 10:20] LABS: Bacteria 1+ /hpf (None Seen); Mucous, Urine 1+ /hpf (<or=2+); Red Blood Cells-Urine 5-10 SEEN /hpf (0-5); Squamous Epithelial Cells - UA 5-10 SEEN /hpf (5-10); White Blood Cells 25-50 SEEN /hpf (0-5)
--- NOTE | 2019-03-16 10:50 | CASEMGMT ---
RN CM Assessment Presentation: Nondisplaced distal fibula fracture. Non surgical. Intro role of CM and purpose of RN CM assessment to patient in room. Pt is awake, alert and able to participate in assessment. Demographics, PCP and Pharmacy verified. Pt states she has been independent @ home, no care needs prior to this event. PCP: Dr. Wili Dunbar III Specialists: Dr. Driver [facility] Insurance: [facility] A[facility]B Prescription Benefit: yes LNOK: Niece, Rosita Santos Living Arrangements: Lives in mobile home, 3 steps into home. Pt took care of own needs, cooking, cleaning, home care. Now pt states she does not think she will be able to care for self. She states she has been feeling weak and plans to consider SNF on dc. Transportation: Drove self prior DME: walker (no wheels), cane. Pt states she only used cane HHC: none SW Consult: anticipate SNF needed on dc. pt first choice was [facility]. Patient DC goals: SNF. DC PLAN: undetermined. PT/OT evaluations pending. Anticipate SNF needed on dc. Jesús BENDERN RN ACM
[2019-03-16] MEDS: Acetaminophen 500 MG Tablet 1000 MG PO ×2 (10:53→21:10)
[2019-03-16] MEDS: Heparin Injection (Vial) 5,000 UNIT/ML VIAL 5000 UNIT SC ×2 (10:53→21:00)
[2019-03-16] MEDS: Polyethylene Glycol 3350 17 GM PACKET PO (10:54)
[2019-03-16] MEDS: Metoprolol(XL)Succ 100 MG Tablet PO ×2 (10:54→20:59)
[2019-03-16 11:06] LABS: Bedside Glucose 149 mg/dL (70-110)
--- NOTE | 2019-03-16 11:49 | CASEMGMT ---
Social Work Note Per public health dentist questions, pt has completed HCPOA and LW and has provided [facility] copies. SW reviewed pt's chart and no copies are found on pt's chart. SW updated pt on this. Pt states she will be able to bring in copies once she returns home. Jody Orosco EQUIPMENT ANALYST, PATIENT PORTAL REPRESENTATIVE
[2019-03-16] MEDS: Insulin Lispro 100 UNIT/ML INSULN.PEN 10 UNIT SC ×2 (12:49→17:31)
[2019-03-16] MEDS: tiZANidine HCl 2 MG Tablet PO (12:57)
--- NOTE | 2019-03-16 15:07 | CASEMGMT ---
Social Work Note SW received referral that pt would like [facility] at discharge. SW placed a call to referral line and TCU will have a bed on Friday. SENDY in to speak with pt. Pt is alert and orientated x3. Pt confirms that she would like [facility] at discharge. SENDY provided pt with list of area SNF that accept pt's insurance. Pt still states she wishes to discharge to TCU. SENDY explained Medicare guidelines. SENDY received a call from Neena stating pt is on Trulicity and Trulicty costs $700 a month and TCU won't be able to assist pt with getting Trulicty and if pt needs trulicty pt will not be able to admit to TCU. SENDY in to speak with pt. SW updated pt on above information and asked if she has someone who will be able to bring in medication. Pt states that she will call her neighbor to see if her neighbor will be able to bring in medications. SENDY informed pt that if she is not able to bring in medication then TCU will not be able to accept and most likely no other longterm would be able to accept either due to the cost of the medication. Pt states understanding. Plan: TCU Friday if pt's trulicty is brought to [facility] Jody Orosco CLEAN UP SUPERVISOR, TRAINING PROGRAM ASSISTANT
[2019-03-16] MEDS: oxyCODONE 5 MG Tablet PO ×2 (15:27→20:57)
[2019-03-16 16:25] LABS: Bedside Glucose 151 mg/dL (70-110)
[2019-03-16] MEDS: metFORMIN HCl 1,000 MG Tablet 1000 MG PO (17:31)
[2019-03-16] MEDS: Insulin Lispro 100 UNIT/ML INSULN.PEN SC ×2 (17:32→21:06)
[2019-03-16] MEDS: Atorvastatin Calcium 10 MG Tablet PO (20:59)
[2019-03-16] MEDS: Latanoprost 0.005% 1 Bottle 1 DRP EACH EYE (20:59)
[2019-03-16] MEDS: Morphine 2 MG/ML Syringe IV (23:08)
[2019-03-17] VITALS (12 sets, daily range): BP systolic 97–138; BP diastolic 40–53; PULSE 69–90; RESP 16–18; TEMP 36.6–37.1; O2SAT 97–99
[2019-03-17] LABS: Bedside Glucose 188 mg/dL (70-110)
[2019-03-17] MEDS: 0.9% Normal Saline 1,000 ML 75 ML IV ×2 (00:55→14:46)
[2019-03-17] MEDS: tiZANidine HCl 2 MG Tablet PO (00:58)
[2019-03-17] MEDS: oxyCODONE 5 MG Tablet PO (00:58)
[2019-03-17] MEDS: Acetaminophen 500 MG Tablet 1000 MG PO ×3 (05:38→22:01)
[2019-03-17 06:39] LABS: Anion Gap 7 (5-15); BUN 25 mg/dL (7-18); BUN/Creat Ratio 23.6 RATIO (10-20); Chloride 101 mmol/L (98-107); Creatinine, Serum 1.06 mg/dL (0.55-1.02); EST Glomerular Filtration Rate 53 mL/min (>60); Est Glom Filt Rate - Afr Amer 64 mL/min (>60); Estimated Creatinine Clearance 38.09 ml/min; Glucose 117 mg/dL (74-106); Potassium 3.5 mmol/L (3.5-5.1); Sodium Level 132 mmol/L (136-145)
[2019-03-17 08:35] LABS: Bedside Glucose 129 mg/dL (70-110)
[2019-03-17] MEDS: metFORMIN HCl 1,000 MG Tablet 1000 MG PO (09:01)
[2019-03-17] MEDS: Insulin Lispro 100 UNIT/ML INSULN.PEN 10 UNIT SC ×2 (09:01→12:23)
--- NOTE | 2019-03-17 09:28 | CASEMGMT ---
Addendum entered by Jody Orosco 03/17/19 15:43: SW updated pt on acceptance to TCU Friday Original Note: Social Work Note SW received call from Neena with TCU stating pt's trulicty is fine and they are able to accept pt Friday. Plan: TCU Friday Jody Orosco COM WRITER, JAVA LEAD ARCHITECT
[2019-03-17] MEDS: Heparin Injection (Vial) 5,000 UNIT/ML VIAL 5000 UNIT SC ×2 (11:22→21:58)
[2019-03-17 11:26] LABS: Bedside Glucose 141 mg/dL (70-110)
[2019-03-17] MEDS: Metoprolol(XL)Succ 25 MG Tablet PO (12:23)
--- NOTE | 2019-03-17 14:42 | CHAPLAIN ---
Type of Pastoral Visit _x__ Initial Visit ___ Follow-up Visit ___ On-call Visit ___ General Patient Visit ___ Spiritual Assessment ___ Family Conference ___ Bereavement ___ Rapid Response ___ Code Blue ___ Other (describe below) Pastoral Care Referral From _x__ Patient ___ Family ___ Nurse ___ Physician ___ Flake Miller Helper ___ Expediter Service Order ___ Other (describe below) Sacrament/Intervention _x__ Active listening ___ Anointing ___ Voodoo ___ Bereavement ___ Communion ___ Yolanda exploration ___ _x__ Life review _x__ Prayer ___ Reconciliation ___ Sacrament of Sick _x__ Supportive presence ___ Wedding ___ Other (describe below) Pastoral Comments
[2019-03-17] MEDS: Ceftriaxone 1 GM/50 ML BAG IV (14:46)
[2019-03-17 17:40] LABS: Bedside Glucose 71 mg/dL (70-110)
--- NOTE | 2019-03-17 18:33 | PCM.PROGNOTE ---
Patient Problems: Active and Suspected Problems (Last Reviewed 03/17/19 @ 18:28 by Jennifer Crow DO) Closed left ankle fracture (Acute) Inability to ambulate due to ankle or foot (Acute) Subjective: All events of the past 24 hours have been reviewed. She was placed in a cast by Dr. Driver yesterday and there is no surgical intervention planned. She is nonweightbearing. She had one fever to 101.8 and has been afebrile since. Vital signs are stable and she is maintaining an oxygen saturation of 100% on room air. All lab was personally reviewed. Lab at admission showed a low platelet count at 67,000 with a normal hemoglobin and normal white blood cell count. The last lab we have on her was from 2012 and at that time she did not have thrombocytopenia. Sodium was low at 131 at admission and the current sodium is 132. BUN and creatinine at admission were 24 and 1.04 respectively. Hemoglobin A1c is 7.0. Magnesium is normal at 1.8. LDL was 36 and the HDL was 24. Triglycerides were normal at 95. UA showed a specific gravity of 1.02 and there were 5-10 RBCs and 25-50 WBCs per high-power field with 1+ bacteria and this was a catheterized specimen. Blood sugars are well controlled. Pain is adequately controlled with OxyIR 5 mg and 1 g of Tylenol every 8 hours. She also takes tizanidine for muscle spasms when needed. She has only had 2 doses since admission. Echocardiogram showed an ejection fraction of 65% with no segmental wall motion abnormalities. There was moderate mitral annular calcification with extension of the mitral annular calcification onto the posterior mitral valve leaflet. There was trivial mitral valve insufficiency and trivial tricuspid valve insufficiency. There was mild aortic stenosis and the valve is trileaflet.. Objective: PHYSICAL EXAM: GENERAL: alert, oriented X 3, Cooperative, NAD ORAL: Dry mucosa, no mucosal lesions NECK: No JVD, supple, trachea midline, no carotid bruits, no cervical adenopathy LUNGS: CTA, symmetric chest expansion HEART: RRR, Normal S1 and S2, no rub, no gallop, no change in murmur at the second right intercostal space ABDOMEN: soft, NT, ND, BS present, no guarding with palpation EXTREMITIES: no edema, no cyanosis, no calf tenderness, she can feel me touch her toes on both feet and they are not cool to touch. SKIN: No rashes, no breakdown NEUROLOGIC: no focal neurologic deficits PSYCH: appropriate, normal affect, pleasant - Physical Exam Vital Signs Temp Pulse Resp BP Pulse Ox 98.8 F 79 16 117/53 L 97 03/17/19 16:33 03/17/19 16:33 03/17/19 16:33 03/17/19 16:33 03/17/19 16:33 Oxygen Delivery Method Room Air Weight: 182 lb 6.4 oz Body Mass Index (BMI) 30.3 Finger Stick Blood Glucose 145 Intake and Output for Last 24 Hours 03/15/19 03/16/19 03/17/19 23:59 23:59 23:59 Intake Total 1000 / 1230 1835 / 1835 Output Total 300 / 300 800 / 800 Balance 700 / 930 1035 / 1035 Laboratory Tests Past 24 Hrs 03/17/19 06:04 Sodium 132 L Potassium 3.5 Chloride 101 Carbon Dioxide 24.0 Anion Gap 7 BUN 25 H Creatinine 1.06 H Estim Creat Clear Calc 38.09 Est GFR (MDRD) Af Amer 64 Est GFR (MDRD) Non-Af 53 L BUN/Creatinine Ratio 23.6 H Glucose 117 H Calcium 8.0 L POC Glucose 03/17/19 03/17/19 03/17/19 17:36 11:16 08:21 POC Glucose 71 141 H 129 H 03/16/19 21:05 POC Glucose 188 H Medical Necessity - Tobacco Use Smoking Status: Former smoker - quit in the and prior to that she smoked for 30 years Tobacco Use: Non-smoker Assessment/Plan All Active Problems (Last Reviewed 03/17/19 @ 18:28 by Jennifer Crow DO) Personal history of colonic polyps (Acute) Closed left ankle fracture (Acute) Inability to ambulate due to ankle or foot (Acute) Impressions 1. Acute traumatic left ankle fracture. Not splinted in the emergency department. Will consult Dr. Driver's recommendations for treatment. Pain medication has been ordered and also a muscle relaxer since she is having muscle spasms. 2. Frequent falls. Patient lives alone and is 78 years old and complains of leg weakness. Suspect she will need to go to a custodial facility at discharge she will be nonweightbearing on the left lower extremity. 3. Hyponatremia/dehydration-has been taking hydrochlorothiazide as an outpatient and this is on hold. Will check a urine urea nitrogen and a spot urine creatinine and calculate the fractional excretion of urea. 4. Urinary tract infection -urine culture did not get sent or set up yesterday. Will need to repeat straight cath and send for urine culture. Following straight cath will start Rocephin 1 g IV daily. 3. Chronic problems include hypertension, diabetes mellitus type 2(well controlled), obesity, GERD, hyperlipidemia, heart murmur, history of endometrial cancer, bilateral venous insufficiency of the lower extremities, obstructive sleep apnea noncompliant with CPAP, osteoarthritis, glaucoma and diverticulosis - resume home meds. Discussed with social problems specialist-patient will be accepted to TCU on Friday. Code Visit Inpatient E&M: 63150 Subs Hosp L2
[2019-03-17] MEDS: Latanoprost 0.005% 1 Bottle 1 DRP EACH EYE (22:01)
[2019-03-17] MEDS: Metoprolol(XL)Succ 100 MG Tablet PO (22:04)
[2019-03-17] MEDS: Atorvastatin Calcium 10 MG Tablet PO (22:04)
[2019-03-17 22:11] LABS: Bedside Glucose 215 mg/dL (70-110)
[2019-03-18] VITALS (13 sets, daily range): BP systolic 121–156; BP diastolic 54–74; PULSE 81–105; RESP 16–24; TEMP 36.3–36.9; O2SAT 95–100
[2019-03-18] MEDS: 0.9% Normal Saline 1,000 ML 75 ML IV ×2 (04:31→17:11)
[2019-03-18 06:36] LABS: Anion Gap 7 (5-15); BUN 13 mg/dL (7-18); BUN/Creat Ratio 19.1 RATIO (10-20); Chloride 107 mmol/L (98-107); Creatinine, Serum 0.68 mg/dL (0.55-1.02); EST Glomerular Filtration Rate 88 mL/min (>60); Est Glom Filt Rate - Afr Amer 107 mL/min (>60); Estimated Creatinine Clearance 40.38 ml/min; Glucose 129 mg/dL (74-106); Potassium 3.7 mmol/L (3.5-5.1); Sodium Level 138 mmol/L (136-145)
[2019-03-18] MEDS: Acetaminophen 500 MG Tablet 1000 MG PO ×3 (06:37→22:21)
[2019-03-18] MEDS: Insulin Lispro 100 UNIT/ML INSULN.PEN SC ×3 (06:42→15:45)
[2019-03-18 06:51] LABS: Bedside Glucose 151 mg/dL (70-110)
[2019-03-18] MEDS: metFORMIN HCl 1,000 MG Tablet 1000 MG PO ×2 (09:37→17:10)
[2019-03-18] MEDS: Heparin Injection (Vial) 5,000 UNIT/ML VIAL 5000 UNIT SC ×2 (09:37→22:20)
[2019-03-18] MEDS: Ceftriaxone 1 GM/50 ML BAG IV (09:38)
[2019-03-18] MEDS: Metoprolol(XL)Succ 100 MG Tablet PO ×2 (09:41→22:22)
[2019-03-18 12:36] LABS: Bedside Glucose 196 mg/dL (70-110)
[2019-03-18 15:56] LABS: Bedside Glucose 181 mg/dL (70-110)
[2019-03-18] MEDS: Atorvastatin Calcium 10 MG Tablet PO (22:20)
[2019-03-18] MEDS: Latanoprost 0.005% 1 Bottle 1 DRP EACH EYE (22:28)
[2019-03-18 22:33] LABS: Urea Nitrogen, Urine 567 mg/dL (NO RANGE EST.)
[2019-03-18 22:40] LABS: Bedside Glucose 143 mg/dL (70-110)
[2019-03-18] MEDS: Ipratropium/Albuterol Sulfate 3 ML AMPUL.NEB INHALATION (22:54)
[2019-03-19] MEDS: 0.9% NaCl Peripheral Flush Adult/Peds IV (01:15)
[2019-03-19] MEDS: Morphine 2 MG/ML Syringe IV (01:15)
[2019-03-19 01:59] VITALS: PULSE 83
[2019-03-19 05:00] VITALS: BP 156/72; PULSE 86; RESP 20; TEMP 36.8; O2SAT 96
[2019-03-19] MEDS: Acetaminophen 500 MG Tablet 1000 MG PO ×2 (05:23→12:53)
[2019-03-19] MEDS: oxyCODONE 5 MG Tablet PO (05:23)
[2019-03-19] MEDS: Insulin Lispro 100 UNIT/ML INSULN.PEN SC ×2 (06:48→12:52)
[2019-03-19 07:00] LABS: Bedside Glucose 160 mg/dL (70-110)
[2019-03-19 07:49] VITALS: PULSE 77
[2019-03-19 09:00] VITALS: RESP 18
--- NOTE | 2019-03-19 09:23 | PCM.TXEXTCAR ---
- Diet 03/16/19 08:04 Diet: Calorie Controlled Food consistency:: Regular Liquid Consistency:: Regular/Thin How many daily calories?: 1800 calorie - Routine Orders/Code Status Enema Type: Fleetz Enema Frequency: Daily PRN Suppository Type: Dulcolax 10mg Suppository Frequency: Daily PRN O2 Liters per Minute: 1-2 O2 Frequency: PRN Keep PO Greater than or Equal to (%): 90 Routine Lab Work: - - CBC and BMP in 1 week, vitamin D level in 1 week - Therapies Weight Bearing: Non weight bearing Physical Therapy: Eval and Treat Occupational Therapy: Eval and Treat - Problem/Diagnosis (1) HTN (hypertension) Status: Chronic Current Visit: Yes (2) Diabetes mellitus type 2 in obese Status: Chronic Current Visit: Yes (3) GERD (gastroesophageal reflux disease) Status: Chronic Current Visit: Yes (4) HLD (hyperlipidemia) Status: Chronic Current Visit: Yes (5) Endometrial cancer Status: Chronic Comment: has had MARYANA/BSO and recently a mass in the vagina was biopsied....path is pending Current Visit: Yes (6) Venous insufficiency of both lower extremities Status: Chronic Current Visit: Yes (7) KIMBERLEE (obstructive sleep apnea) Status: Chronic Comment: not compliant with CPAP Current Visit: Yes (8) Obesity (BMI 30.0-34.9) Status: Chronic Current Visit: Yes (9) Lower extremity weakness Status: Chronic Current Visit: Yes (10) Frequent falls Status: Chronic Current Visit: Yes (11) Osteoarthritis Status: Chronic Current Visit: Yes (12) Glaucoma Status: Chronic Current Visit: Yes (13) Closed left ankle fracture Status: Acute Current Visit: Yes (14) Diverticulosis Status: Chronic Current Visit: Yes (15) Mild aortic stenosis Status: Chronic Current Visit: Yes (16) Hyponatremia Status: Resolved Current Visit: Yes (17) Dehydration Status: Resolved Current Visit: Yes (18) Urinary tract infection Status: Acute Comment: present at admission Current Visit: Yes - Allergies/Procedures Done in Hospital Allergies/Adverse Reactions: Allergies candesartan cilexetil [From Atacand] Adverse Reaction (Verified 10/30/17 08:27) Abd cramps/diarrhea lisinopril Adverse Reaction (Verified 10/30/17 08:27) Vomiting losartan potassium [From Cozaar] Adverse Reaction (Verified 10/30/17 08:27) Other pioglitazone HCl [From Actos] Adverse Reaction (Verified 10/30/17 08:27) Other prednisone Adverse Reaction (Verified 10/30/17 08:27) Swelling simvastatin [From Zocor] Adverse Reaction (Verified 10/30/17 08:27) Other sitagliptin phosphate [From Januvia] Adverse Reaction (Verified 10/30/17 08:27) Upset Stomach Sulfa (Sulfonamide Antibiotics) Adverse Reaction (Verified 10/30/17 08:27) Other Procedures: 2-D Echocardiogram - Type of Care/Length of Stay Estimated LOS: Convalescent Care Less Than 30 days Type of Care Needed: Skilled Rehab Potential: Good Prognosis: Good - Additional Orders/Day of Discharge Additional Orders: She recently had a bx of a vaginal mass that may be recurrent and now she has a cast on and is not mobile. She is at high risk for DVT so as long as she has the cast on I would continue the Xarelto. The Left leg MUST be elevated anytime she is not doing PT H&P will serve as current which was dated: 03/16/19 Day of Discharge: 03/19/19 - Follow Up Care Primary Care Physician: Wili Dunbar III, MD [Primary Care Provider] - Please follow up with your Primary Care Physician in: Following discharge from TCU Please Follow Up With: Huy Driver DO When: 1 week for Xray
[2019-03-19] MEDS: Heparin Injection (Vial) 5,000 UNIT/ML VIAL 5000 UNIT SC (09:36)
[2019-03-19 09:37] VITALS: PULSE 80
[2019-03-19] MEDS: metFORMIN HCl 1,000 MG Tablet 1000 MG PO (09:37)
[2019-03-19] MEDS: Metoprolol(XL)Succ 100 MG Tablet PO (09:37)
[2019-03-19] MEDS: Polyethylene Glycol 3350 17 GM PACKET PO (09:37)
[2019-03-19] MEDS: Ceftriaxone 1 GM/50 ML BAG IV (09:39)
--- NOTE | 2019-03-19 09:43 | PCM.DC.SUM ---
Discharge Date and Diagnosis - Problem List Patient Problems: Active and Suspected Problems (Last Reviewed 03/17/19 @ 18:28 by Jennifer Crow DO) Closed left ankle fracture (Acute) Inability to ambulate due to ankle or foot (Acute) Urinary tract infection (Acute) present at admission Date of Admission: 03/16/19 Date of Discharge: 03/19/19 - Primary Discharge Diagnosis Active and Suspected Problems (Last Reviewed 03/17/19 @ 18:28 by Jennifer Crow DO) Traumatic Closed left ankle fracture (Acute) Inability to ambulate due to ankle or foot (Acute) Urinary tract infection (Acute) present at admission Hyponatremia - resolved Dehydration - resolved Suspected osteoporosis - Secondary Discharge Diagnosis Chronic Problems (Last Reviewed 03/17/19 @ 18:28 by Jennifer Crow DO) HTN (hypertension) (Chronic) Diabetes mellitus type 2 in obese (Chronic) GERD (gastroesophageal reflux disease) (Chronic) HLD (hyperlipidemia) (Chronic) Endometrial cancer (Chronic) has had MARYANA/BSO and recently a mass in the vagina was biopsied....path is pending Venous insufficiency of both lower extremities (Chronic) KIMBERLEE (obstructive sleep apnea) (Chronic) not compliant with CPAP Obesity (BMI 30.0-34.9) (Chronic) Lower extremity weakness (Chronic) Frequent falls (Chronic) Osteoarthritis (Chronic) Glaucoma (Chronic) Diverticulosis (Chronic) Mild aortic stenosis (Chronic) Hospital Course and Treatment Imaging Results: Clinical Impression(s) from Imaging Studies Ankle X-Ray 03/16/19 06:05 IMPRESSION: Oblique fracture through the distal one third diaphysis of the fibula with minimal displacement, the fracture extends distally into the proximal metaphysis Avulsion fractures through the inferior tip of the medial malleolus with multiple small fragments largest measuring 3 mm Significant soft tissue edema Osteopenia Evaluation of the posterior calcaneus is nondiagnostic and is excluded from the [id number]. Electronically Signed: Javier Landers at 6:59 EDT Tel , Service support , Hip/Pelvis X-Ray 03/16/19 08:02 IMPRESSION: No demonstrated fracture. Electronically Signed: Gallito Laboy MD at 14:59 EDT Tel , Service support , Tibia/Fibula X-Ray 03/16/19 08:02 IMPRESSION: Soft tissue calcification. No demonstrated fracture. Electronically Signed: Gallito Laboy MD at 14:38 EDT Tel , Service support , Laboratory Results - last 24 hr 03/18/19 03/18/19 03/18/19 12:23 15:43 22:10 Urine Urea Nitrogen 567 POC Glucose 196 H 181 H 03/18/19 03/19/19 22:11 06:46 Urine Urea Nitrogen POC Glucose 143 H 160 H Urine culture is pending at the time of DC Dr. Driver-orthopedics Operations: None Procedures: 2-D Echocardiogram - Interpretation Summary Left ventricular systolic function is normal. The estimated ejection fraction is 65 %. There is moderate mitral annular calcification. Extension of the mitral annular calcification onto the posterior mitral valve leaflet. Trivial mitral valve insufficiency. Trivial tricuspid valve insufficiency. Mild aortic stenosis. Diastolic function is indeterminate., - - cast applied to the Left Leg by Dr. Driver on 03/17/19 Summary of Care Provided: The patient is an 78 year old F with a past medical history of hypertension, diabetes mellitus type 2, obesity, GERD, hyperlipidemia, heart murmur, endometrial cancer (S/P MARYANA with BSO, oncologist recently found a mass in the vagina and she is awaiting the results of a bx. ), bilateral lower extremity venous insufficiency, obstructive sleep apnea not compliant with CPAP, lower extremity weakness with frequent falls, osteoarthritis, glaucoma and diverticulosis who was brought to the emergency department at [facility] on 03/16/2019 by EMS after a fall getting off her toilet. She fell into the side of the bathtub and she was complaining of left ankle pain. She also struck her head and there was a contusion present. X-ray of the left ankle showed an oblique fracture through the distal one third diaphysis of the fibula with minimal displacement. She was also seen in the emergency department on 03/15/2019 after a fall and was sent home when x-rays revealed no fractures or dislocations. X-rays of the pelvis and hip showed no demonstrated fractures. The right tib-fib showed no demonstrated fracture. Significant lab at admission include a low platelet count of 67,000, low sodium at 131 and an elevated BUN and creatinine at 24 and 1.04 respectively. Hemoglobin A1c is well controlled at 7.0. LDL is 36 and the HDL is low at 24. Troponin was less than 0.015. A UA obtained by straight cath showed 25-50 WBCs per high-power field and 5-10 RBCs. There was +1 bacteria in a urine culture was sent. On PE in the ED she had a systolic MM at the second right intercostal space. There was a lot of ectopy when I was listening to her heart rhythm and it was rather fast. Mucous membranes were dry. She was admitted to [facility] on telemetry with a diagnosis of frequent falls and left ankle fracture with inability to walk. She was started on Rocephin. Consult was placed with Dr. Driver. A cast was applied to the LLE by Dr. Driver on 03/17. Telemetry showed NSR and ST witho no significant ectopy after she was hydrated. She lives alone and she has had frequent falls recently. She is non-wt bearing on the LLE and is very unsteady and requiring a lot of assistance with rolling, sitting up from a lying down position and getting to the chair. On 03/18/2019 she was only able to ambulate 4 feet with significant assistance. Precertification was applied for for admission to TCU prior to going home. BMP on 03/18/2019 following hydration showed a BUN of 13 and a creatinine 0.68. Potassium was 3.7 and the sodium was 138. Blood sugars have been well controlled during her visit. Echocardiogram showed extensive calcification of the mitral annulus with trivial MR, mild aortic stenosis and an ejection fraction of 65%. Diuretics were held during her admission secondary to dehydration and hyponatremia at admission with frequent falls. On the day of discharge she was afebrile with stable vital signs and the blood pressure has been adequately controlled during her hospital stay. She was discharged to the transitional care unit for PT/OT prior to returning home. She has a history of endometrial cancer and recently was discovered to have a mass in the vagina. It has been biopsied and the results are currently pending. She is at high risk for VTE and she was placed on Xarelto 10 mg daily which should be continued until the cast has been removed and she is ambulatory. I suspect that she has osteoporosis and she was started on calcium and vitamin D along with a bisphosphonate. She should have a bone density as an outpatient if she has not had one in the past 1 to 2 years. GENERAL: alert, oriented X 3, Cooperative, NAD ORAL: Dry mucosa, no mucosal lesions NECK: No JVD, supple, trachea midline, no carotid bruits, no cervical adenopathy LUNGS: CTA, symmetric chest expansion HEART: RRR, Normal S1 and S2, no rub, no gallop, no change in murmur at the second right intercostal space ABDOMEN: soft, NT, ND, BS present, no guarding with palpation EXTREMITIES: no edema, no cyanosis, no calf tenderness, she can feel me touch her toes on both feet and they are not cool to touch. SKIN: No rashes, no breakdown NEUROLOGIC: no focal neurologic deficits PSYCH: appropriate, normal affect, pleasant This note was generated with [employer] dictation software. It may contain incorrect words, spelling, and punctuation that were not noted in checking the note before signing. Patient Problems: Active and Suspected Problems (Last Reviewed 03/17/19 @ 18:28 by Jennifer Crow DO) Closed left ankle fracture (Acute) Inability to ambulate due to ankle or foot (Acute) Urinary tract infection (Acute) present at admission - Physical Exam Vital Signs Temp Pulse Resp BP Pulse Ox 98.3 F 80 20 H 156/72 H 96 03/19/19 05:00 03/19/19 09:37 03/19/19 05:00 03/19/19 05:00 03/19/19 05:00 Oxygen Delivery Method Room Air Weight: 182 lb 6.4 oz Body Mass Index (BMI) 30.3 Finger Stick Blood Glucose 145 Intake and Output for Last 24 Hours 03/17/19 03/18/19 03/19/19 23:59 23:59 23:59 Intake Total 2085 / 2085 2673.75 / 2973.75 350 / 350 Output Total 800 / 800 550 / 550 Balance 1285 / 1285 2123.75 / 2423.75 350 / 350 Laboratory Tests Past 24 Hrs 03/18/19 22:10 Urine Urea Nitrogen 567 POC Glucose 03/19/19 03/18/19 03/18/19 06:46 22:11 15:43 POC Glucose 160 H 143 H 181 H 03/18/19 12:23 POC Glucose 196 H Home Medications: Medications to take at Discharge Aspirin [Aspirin, Baby] 81 mg PO DAILY@0800 04/17/13 Nizatidine [Axid] 150 mg PO BID PRN PRN 04/17/13 Nystatin [Mycostatin] 1 applic TOPICAL 4X/DAY PRN 04/17/13 metFORMIN HCl [Glucophage] 1,000 mg PO BIDCM 04/17/13 atorvastatin 10 mg tablet 10 mg PO QHS 10/15/17 insulin aspart (U-100) 100 unit/mL (3 mL) subcutaneous pen 10 unit SC TIDCM 10/15/17 insulin glargine (U-100) 100 unit/mL subcutaneous solution 30 unit SC QHS 10/15/17 Latanoprost 1 drop EACH EYE QHS 10/30/17 Dulaglutide [Trulicity] 1.5 mg SQ QWEEK 03/16/19 Hydrochlorothiazide [Hctz] 12.5 mg PO DAILY 03/16/19 Metoprolol Succinate 100 mg PO BID 03/16/19 Ranitidine [Zantac] 150 mg PO BIDCM 03/16/19 Triamcinolone 0.1% Cream [Kenalog] 1 applic TOPICAL BID PRN 03/16/19 Acetaminophen [Tylenol] 1,000 mg PO Q8 tab 03/19/19 Alendronate Sodium [Fosamax] 70 mg PO QWEEK #4 tab 03/19/19 Calcium (Elemental) [Os-Jerad 500] 500 mg PO BIDCM #60 tab 03/19/19 Cefadroxil Hydrate [Duricef] 500 mg PO BID #10 cap 03/19/19 Cholecalciferol (VIT D3) [Vitamin D] 1,000 unit PO BID #60 tab 03/19/19 Meclizine HCl [Antivert] 25 mg PO TID PRN PRN tab 03/19/19 Oxycodone [Oxyir] 5 mg PO Q4H PRN PRN 7 Days #21 tab 03/19/19 Polyethylene Glycol 3350 [Miralax] 17 gm PO DAILY packet 03/19/19 Rivaroxaban [Xarelto] 10 mg PO DAILY #30 tab 03/19/19 Tizanidine HCl [Zanaflex] 2 mg PO Q8H PRN PRN tab 03/19/19 Following Prescrptions Were Given to Patient: Cefadroxil Hydrate [Duricef] 500 mg PO BID #10 cap Alendronate Sodium [Fosamax] 70 mg PO QWEEK #4 tab Calcium (Elemental) [Os-Jerad 500] 500 mg PO BIDCM #60 tab Cholecalciferol (VIT D3) [Vitamin D] 1,000 unit PO BID #60 tab Rivaroxaban [Xarelto] 10 mg PO DAILY #30 tab Primary Care Physician: Wili Dunbar III, MD [Primary Care Provider] - Please follow up with your Primary Care Physician in: Following discharge from TCU Please Follow Up With: Huy Driver DO When: 1 week for Xray Disposition: Retirement facility Minutes spent on discharge:: 35 Medical Necessity - Tobacco Use Smoking Status: Former smoker - quit in the and prior to that she smoked for 30 years Tobacco Use: Non-smoker Meaningful Use Info Meaningful Use Diagnoses (Choose all that apply): None applicable Code Visit Inpatient E&M: 44922 Disch Hosp
--- NOTE | 2019-03-19 09:45 | CASEMGMT ---
Social Work Note Pt is discharging to TCU today. SW updated pt on discharge to TCU. SW placed a call to Swathi in TCU and left her a message informing her of discharge to TCU today. 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
[2019-03-19 10:15] VITALS: BP 115/66; PULSE 70; RESP 18; TEMP 36.8; O2SAT 96
--- NOTE | 2019-03-19 10:59 | NURSING ---
SPOKE WITH SACHIN IN tcu, they will not take report until after lunch and will call when bed is ready
[2019-03-19 11:46] LABS: Bedside Glucose 267 mg/dL (70-110)
--- NOTE | 2019-03-19 15:00 | NURSING ---
maykel rn tcu updated that a 1 x dose of lasix was ordered after report called and pt transferred to their unit and was not given-nurse said he would report that to dr ro
== END 2019-03-19 14:32 | disposition skilled nursing facility (03) | DRG 563 ==
LOC: ED 07:00 → MS3 10:38
PROVIDERS: Admitting Provider Internal Medicine; Emergency Provider Emergency Medicine; Family Provider Family Medicine; PCP Family Medicine; Visit Provider Internal Medicine
DX: S82.892A Other fracture of left lower leg, initial encounter for closed fracture (principal); E87.1 Hypo-osmolality and hyponatremia; N39.0 Urinary tract infection, site not specified; W18.12XA Fall from or off toilet with subsequent striking against object, initial encounter; Y92.022 Bathroom in mobile home as the place of occurrence of the external cause; R29.6 Repeated falls; E11.9 Type 2 diabetes mellitus without complications; M19.90 Unspecified osteoarthritis, unspecified site; K57.90 Diverticulosis of intestine, part unspecified, without perforation or abscess without bleeding; K21.9 Gastro-esophageal reflux disease without esophagitis; I87.2 Venous insufficiency (chronic) (peripheral); I10 Essential (primary) hypertension; H40.9 Unspecified glaucoma; G47.33 Obstructive sleep apnea (adult) (pediatric); E78.5 Hyperlipidemia, unspecified; E66.9 Obesity, unspecified; E86.0 Dehydration; R01.1 Cardiac murmur, unspecified; Z91.19 Patient's noncompliance with other medical treatment and regimen; Z85.42 Personal history of malignant neoplasm of other parts of uterus; Z79.4 Long term (current) use of insulin; Z87.891 Personal history of nicotine dependence; Z68.30 Body mass index [BMI] 30.0-30.9, adult; M81.0 Age-related osteoporosis without current pathological fracture; Z90.710 Acquired absence of both cervix and uterus; Z90.722 Acquired absence of ovaries, bilateral; Z90.79 Acquired absence of other genital organ(s); I35.0 Nonrheumatic aortic (valve) stenosis; N89.9 Noninflammatory disorder of vagina, unspecified; S00.03XA Contusion of scalp, initial encounter; S70.02XA Contusion of left hip, initial encounter; Z91.81 History of falling; Z79.82 Long term (current) use of aspirin; Z79.899 Other long term (current) drug therapy
CPT/HCPCS: 36415; 70450; 73502; 73590; 73610; 80048; 80053; 80061; 81001; 82570; 82962; 83036; 83735; 84484; 84540; 85025; 85610; 85730; 87086; 93005; 93306; 93925; 94640; 94762; 97110; 97116; 97163; 97166; 97530; 97535; 99284; 99285; J7030; Q9957; A4216

== ENCOUNTER 2019-03-19 14:48 | Inpatient (IN) | payer MEDICARE, OTHER, SELFPAY ==
[2019-03-16 07:40] VITALS: BMI 30.3
[2019-03-19 15:06] VITALS: BP 143/63; PULSE 95; RESP 18; TEMP 36.9; O2SAT 80
[2019-03-19 15:19] VITALS: BMI 30.3
[2019-03-19 15:21] VITALS: BMI 30.3
--- NOTE | 2019-03-19 15:41 | HP.PCM_ITS ---
Problem List (1) Debility Status: Acute (2) Diabetes mellitus Status: Chronic (3) Tinea corporis Status: Chronic (4) Dizziness Status: Chronic (5) Closed left ankle fracture Status: Acute (6) HTN (hypertension) Status: Chronic Qualifiers: (7) GERD (gastroesophageal reflux disease) Status: Chronic (8) HLD (hyperlipidemia) Status: Chronic (9) KIMBERLEE (obstructive sleep apnea) Status: Chronic Comment: not compliant with CPAP (10) Osteoarthritis Status: Chronic (11) Glaucoma Status: Chronic History of Present Illness Date of Admission: 03/19/19 Chief Complaint: Here for rehabilitation, strengthening, prior to discharge home alone. The patient is a 78 year old Female with below past medical history presented to [facility] Emergency Department 03/16/2019 with fall. 03/16/2019 X-ray left ankle, fibula fracture, avulsion fracture medial malleolus. X-ray left ankle showed fracture. Walking boot applied, 2 falls in 2 days. 03/16/2019 Admit to Hospital. Pain control, muscle relaxant. PT/OT, non weight bearing left lower extremity. 03/16/2019 Echo left ventricular systolic function normal. EF 65% Mild aortic stenosis. Diastolic dysfunction indeterminate. 03/16/2019 X-ray pelvis, left hip negative. 03/16/2019 X-ray right tibia, fibular negative. 03/16/2019 Dr. Driver short leg non-walking cast applied. Cast shoe to rest left foot on ground. Non weight bearing left lower extremity. Elevated left lower extremity when not doing therapy. 03/17/2019 Hydrochlorothiazide held for hyponatremia. Send urine culture, Rocephin 1GM IV for urinary tract infection. 03/18/2019 Dyspnea on exertion going to bathroom. Aerosol not helpful. Lasix x 1 dose given for edema. Restart Hydrochlorothiazide. BUN, Cr, K normalized. History of endometrial cancer with vaginal mass, biopsy done, results pending. Xarelto started for DVT prophylaxis. Calcium, Vitamin D, Bisphosphonates started for osteoporosis. 03/19/2019 Admit to TCU with debility, here for rehabilitation, strengthening, prior to discharge home alone. Past Medical History Past Medical History (Chronic Problems): Chronic Problems (Last Reviewed 03/17/19 @ 18:28 by Jennifer Crow DO) HTN (hypertension) (Chronic) Diabetes mellitus type 2 in obese (Chronic) GERD (gastroesophageal reflux disease) (Chronic) HLD (hyperlipidemia) (Chronic) Endometrial cancer (Chronic) has had MARYANA/BSO and recently a mass in the vagina was biopsied....path is pending Venous insufficiency of both lower extremities (Chronic) KIMBERLEE (obstructive sleep apnea) (Chronic) not compliant with CPAP Obesity (BMI 30.0-34.9) (Chronic) Lower extremity weakness (Chronic) Frequent falls (Chronic) Osteoarthritis (Chronic) Glaucoma (Chronic) Diverticulosis (Chronic) Mild aortic stenosis (Chronic) Diabetes mellitus (Chronic) Tinea corporis (Chronic) Dizziness (Chronic) Medical History: Medical History (Last Reviewed 03/17/19 @ 18:28 by Jennifer Crow DO) Cough R05 Diabetes E11.9 GERD (gastroesophageal reflux disease) K21.9 Heart murmur R01.1 Sleep apnea G47.30 HTN (hypertension) I10 Allergies candesartan cilexetil [From Atacand] Adverse Reaction (Verified 10/30/17 08:27) Abd cramps/diarrhea lisinopril Adverse Reaction (Verified 10/30/17 08:27) Vomiting losartan potassium [From Cozaar] Adverse Reaction (Verified 10/30/17 08:27) Other pioglitazone HCl [From Actos] Adverse Reaction (Verified 10/30/17 08:27) Other prednisone Adverse Reaction (Verified 10/30/17 08:27) Swelling simvastatin [From Zocor] Adverse Reaction (Verified 10/30/17 08:27) Other sitagliptin phosphate [From Januvia] Adverse Reaction (Verified 10/30/17 08:27) Upset Stomach Sulfa (Sulfonamide Antibiotics) Adverse Reaction (Verified 10/30/17 08:27) Other Home Medications: Ambulatory Orders Medication Instructions Recorded Aspirin [Aspirin, Baby] 81 mg PO DAILY@0800 04/17/13 Nizatidine [Axid] 150 mg PO BID PRN PRN 04/17/13 Nystatin [Mycostatin] 1 applic TOPICAL 4X/DAY PRN 04/17/13 metFORMIN HCl [Glucophage] 1,000 mg PO BIDCM 04/17/13 atorvastatin 10 mg tablet 10 mg PO QHS 10/15/17 insulin aspart (U-100) 100 unit/mL 10 unit SC TIDCM 05/09/18 (3 mL) subcutaneous pen insulin glargine (U-100) 100 30 unit SC QHS 10/15/17 unit/mL subcutaneous solution Latanoprost 1 drop EACH EYE QHS 10/30/17 Dulaglutide [Trulicity] 1.5 mg SQ QWEEK 03/16/19 Hydrochlorothiazide [Hctz] 12.5 mg PO DAILY 03/16/19 Metoprolol Succinate 100 mg PO BID 03/16/19 Ranitidine [Zantac] 150 mg PO BIDCM 03/16/19 Triamcinolone 0.1% Cream [Kenalog] 1 applic TOPICAL BID PRN 03/16/19 Acetaminophen [Tylenol] 1,000 mg PO Q8 03/19/19 Alendronate Sodium [Fosamax] 70 mg PO QWEEK 03/19/19 Calcium (Elemental) [Os-Jerad 500] 500 mg PO BIDCM 03/19/19 Cefadroxil Hydrate [Duricef] 500 mg PO BID 03/19/19 Cholecalciferol (VIT D3) [Vitamin 1,000 unit PO BID 03/19/19 D] Meclizine HCl [Antivert] 25 mg PO TID PRN PRN tab 03/19/19 Oxycodone [Oxyir] 5 mg PO Q4H PRN PRN 7 Days #21 tab 03/19/19 Polyethylene Glycol 3350 [Miralax] 17 gm PO DAILY 03/19/19 Rivaroxaban [Xarelto] 10 mg PO DAILY 03/19/19 Tizanidine HCl [Zanaflex] 2 mg PO Q8H PRN PRN tab 03/19/19 Surgical History: Surgical History (Last Reviewed 03/17/19 @ 18:28 by Jennifer Crow DO) S/P MARYANA-BSO Z90.710, Z90.722, Z90.79 S/P hemorrhoidectomy Z98.890, Z87.19 Status post colonoscopy Z98.890 uterine ablation uterine ca Surgical History: hysterectomy - MARYANA-BSO, - - Hemorrhoidectomy, Uterine ablation. 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 Tobacco Use: Non-smoker Alcohol: None Drugs: None - *Family History Maternal History Items: Cancer - breast in her mother Sibling History Items: - - 2 brothers with leukemia Review of Systems Constitutional: Denies: Chills, Fever, Weight Change HEENT: Denies: Head Aches, Sinus Congestion, Sinus Drainage Cardiovascular: Denies: Chest Pain, Palpitations Respiratory: Denies: Cough, Shortness of breath at rest, Sputum production Gastrointestinal: Denies: Abdominal Pain, Nausea, Vomiting Genitourinary: Denies: Dysuria Musculoskeletal: Denies: Joint Pain, Joint Tenderness Skin: Denies: Rash, Wounds Neurological: Denies: Numbness, Tingling, Focal weakness Psychiatric: Denies: Anxiety, Depression, Homicidal Ideations, Suicidal Ideations Hematologic/ Lymphatic: Denies: Easy Bruising, Easy Bleeding VTE Information - Inpt Only VTE Present on Admission: No VTE Mechan Device Prophylaxis: Knee High KIRAN Hose VTE Pharm Prophylaxis ordered?: Yes Patient Problems: Active and Suspected Problems (Last Reviewed 03/17/19 @ 18:28 by Jennifer Crow DO) Debility (Acute) - Physical Exam General: Alert, Oriented x3, Cooperative HEENT: Atraumatic, PERRLA, EOMI, Normocephalic Neck: Supple, No JVD, Negative Carotid Bruits Lungs: Clear to auscultation, Normal air movement Cardiovascular: Regular rate, No murmurs Abdomen: Bowel Sounds Present, Soft, Non Tender Extremities: No edema, Capillary Refill Less than 3 Seconds, - - Left lower extremity cast. Skin: No rashes, No breakdown Musculoskeletal: No Tenderness to Palpation of Joints or Extremities Neurological: Cranial nerves II-XII grossly intact Psych/Mental Status: Normal Affect, Appropriate Weight: 82.7 kg Body Mass Index (BMI) 30.3 Finger Stick Blood Glucose 145 Assessment/Plan All Active Problems (Last Reviewed 03/17/19 @ 18:28 by Jennifer Crow DO) Personal history of colonic polyps (Acute) Closed left ankle fracture (Acute) Inability to ambulate due to ankle or foot (Acute) Hyponatremia (Resolved) Dehydration (Resolved) Urinary tract infection (Acute) Debility (Acute) 78 year old female with below past medical history hospitalized for left ankle fracture, treated with cast, complicated by electrolyte abnormalities, acute on chronic heart failure with preserved ejection fraction, admitted to TCU with debility, here for rehabilitation, strengthening, prior to discharge home alone. * Debility - PT/OT. * Pain - Tylenol 1000MG Q8H, Oxycodone 5MG Q4H PRN pain (1-10) * Bowel - Miralax 17GM daily, Senna/colace 1 tablet BID, Dulcolax 10MG daily PRN. * Pneumonia vaccination - Administer Prevnar 13 and/or Pneumovax 23 as necessary. * DVT prophylaxis - Xarelto 10MG daily. * Osteoporosis - Alendronate 70MG per week, Calcium 500MG BID, D3 1000IU BID. * CV prophylaxis - Aspirin 81MG daily. * Hyperlipidemia - Atorvastatin 10MG QHS. * UTI - Duricef 500MG BID thru 03/14/2019, urine culture negative but partially treated urine culture. * Diabetes Mellitus II - Metformin 1000MG BID, Trulicity 1.5MG per week, Lantus 30 units QHS, Humalog 10 units TIDAC. * acute on chronic diastolic heart failure - Metoprolol succinate 100MG twice daily, Lasix 40MG PO x 1 dose, HCTZ 12.5MG daily. * Glaucoma - Xalatan 1GTT OU QHS. * Dizziness - Meclizine 25MG TID PRN. * Tinea Corporis - Nystatin topical 4x/day. * GERD - Ranitidine 150MG BID. * Muscle spasm - Tizanidine 2MG Q8H PRN. * Rash - Triamcinolone 0.1% cream topical BID.
[2019-03-19 16:16] VITALS: O2SAT 95
[2019-03-19] MEDS: Furosemide 40 MG Tablet PO (17:44)
[2019-03-19] MEDS: Cefadroxil 500 MG CAPSULE PO (17:50)
[2019-03-19 17:51] VITALS: BP 143/63; PULSE 95
[2019-03-19] MEDS: Metoprolol(XL)Succ 100 MG Tablet PO (17:51)
[2019-03-19] MEDS: Senna/Docusate Sodium 1 Tablet PO (17:51)
[2019-03-19] MEDS: metFORMIN HCl 1,000 MG Tablet 1000 MG PO (17:51)
[2019-03-19] MEDS: Insulin Lispro 100 UNIT/ML INSULN.PEN 10 UNIT SC (17:52)
[2019-03-19] MEDS: Calcium (Elemental) 500 MG Tablet PO (17:57)
[2019-03-19 18:00] LABS: Bedside Glucose 141 mg/dL (70-110)
[2019-03-19] MEDS: Atorvastatin Calcium 10 MG Tablet PO (21:44)
[2019-03-19] MEDS: Acetaminophen 500 MG Tablet 1000 MG PO (21:45)
[2019-03-19] MEDS: Latanoprost 0.005% 1 Bottle 1 DRP EACH EYE (21:46)
[2019-03-19 21:56] LABS: Bedside Glucose 159 mg/dL (70-110)
[2019-03-20 05:35] VITALS: BP 161/76; PULSE 85; RESP 16; TEMP 36.6; O2SAT 96
[2019-03-20 05:38] VITALS: PULSE 85
[2019-03-20] MEDS: Metoprolol(XL)Succ 100 MG Tablet PO ×2 (05:38→21:16)
[2019-03-20] MEDS: Cefadroxil 500 MG CAPSULE PO ×2 (05:38→17:18)
[2019-03-20] MEDS: Famotidine 20 MG Tablet PO (05:38)
[2019-03-20] MEDS: Acetaminophen 500 MG Tablet 1000 MG PO ×3 (05:38→21:16)
[2019-03-20] MEDS: Rivaroxaban 10 MG Tablet PO (05:43)
[2019-03-20] MEDS: hydroCHLOROthiazide 12.5mg 12.5 MG PO (05:47)
[2019-03-20 06:46] LABS: Bedside Glucose 150 mg/dL (70-110)
[2019-03-20 07:10] LABS: Hematocrit 34.8 % (37-47); Hemoglobin 11.1 g/dL (12.0-15.0); Mean Corp Hgb Conc 31.9 g/dL (32-36); Mean Corpuscular Hgb 24.5 pg (27.0-32.0); Mean Corpuscular Volume 76.8 fL (81-99); Mean Platelet Vol. 10.3 fl (6.2-12.0); POSITIVE COUNT YES; POSITIVE MORPHOLOGY YES; Platelet Count 86 K/mm3 (150-450); RBC Distribution Width CV 16.3 % (11.6-14.6); RBC Distribution Width SD 45.2 fl (35.1-43.9); Red Blood Count 4.53 M/mm3 (4.2-5.4); White Blood Count 6.8 K/mm3 (4.4-11.0)
[2019-03-20 07:12] LABS: Differential Indicated MANUAL DIFF
[2019-03-20 07:37] LABS: Anion Gap 10 (5-15); BUN 11 mg/dL (7-18); BUN/Creat Ratio 17.4 RATIO (10-20); Calcium,Total 8.1 mg/dL (8.5-10.1); Chloride 107 mmol/L (98-107); Creatinine, Serum 0.63 mg/dL (0.55-1.02); EST Glomerular Filtration Rate 96 mL/min (>60); Est Glom Filt Rate - Afr Amer 117 mL/min (>60); Estimated Creatinine Clearance 40.38 ml/min; Glucose 155 mg/dL (74-106); Potassium 3.1 mmol/L (3.5-5.1); Sodium Level 141 mmol/L (136-145)
[2019-03-20] MEDS: Calcium (Elemental) 500 MG Tablet PO ×2 (08:03→17:18)
[2019-03-20] MEDS: metFORMIN HCl 1,000 MG Tablet 1000 MG PO ×2 (08:03→17:20)
[2019-03-20] MEDS: Aspirin 81 MG TAB.CHEW PO (08:03)
[2019-03-20] MEDS: Insulin Lispro 100 UNIT/ML INSULN.PEN 10 UNIT SC ×3 (08:04→17:26)
[2019-03-20 09:18] LABS: Eosinophil 2 % (0-5); Lymphocyte 15 % (19-41); Monocyte 13 % (0-10); Myelocyte 4 (0-0); Neutrophil-Band 6 % (0-5); Neutrophil-Segmented 59 % (47-70); Promyelocyte 1 (0-0); Total Cells Counted 100 (MANUAL DIFF)
[2019-03-20 09:19] LABS: Platelet Estimate ADEQUATE (ADEQ); Red Cell Morphology NORM C+C NORMAL (NORM C&C)
[2019-03-20 09:20] LABS: Absolute Lymphocyte Count 1.02 X10^3/uL (0.83-4.51); Absolute Neutrophil Count 4.4 X10^3/uL (2.0-7.7)
[2019-03-20 10:46] LABS: Bedside Glucose 175 mg/dL (70-110)
[2019-03-20] MEDS: Tuberculin,Purif.prot.deriv. 50 TU/ML Vial 5 ML ID (11:48)
[2019-03-20 15:51] VITALS: BP 147/72; PULSE 79; RESP 20; TEMP 36.6; O2SAT 96
[2019-03-20 17:26] LABS: Bedside Glucose 103 mg/dL (70-110)
[2019-03-20 21:11] LABS: Bedside Glucose 147 mg/dL (70-110)
[2019-03-20 21:16] VITALS: BP 154/65; PULSE 105
[2019-03-20] MEDS: Atorvastatin Calcium 10 MG Tablet PO (21:16)
[2019-03-20] MEDS: oxyCODONE 5 MG Tablet PO (21:17)
[2019-03-20] MEDS: Latanoprost 0.005% 1 Bottle 1 DRP EACH EYE (21:18)
[2019-03-21] MEDS: Alendronate Sodium 70 MG Tablet PO (05:55)
[2019-03-21] MEDS: Acetaminophen 500 MG Tablet 1000 MG PO ×3 (05:55→20:33)
[2019-03-21] MEDS: Famotidine 20 MG Tablet PO (05:55)
[2019-03-21] MEDS: Cefadroxil 500 MG CAPSULE PO ×2 (05:55→17:35)
[2019-03-21] MEDS: hydroCHLOROthiazide 12.5mg 12.5 MG PO (05:55)
[2019-03-21] MEDS: Rivaroxaban 10 MG Tablet PO (05:55)
[2019-03-21] MEDS: oxyCODONE 5 MG Tablet PO ×2 (05:55→20:33)
[2019-03-21 06:31] LABS: Bedside Glucose 149 mg/dL (70-110)
[2019-03-21] MEDS: metFORMIN HCl 1,000 MG Tablet 1000 MG PO ×2 (07:46→17:35)
[2019-03-21] MEDS: Insulin Lispro 100 UNIT/ML INSULN.PEN 10 UNIT SC ×3 (07:46→17:37)
[2019-03-21] MEDS: Aspirin 81 MG TAB.CHEW PO (07:46)
[2019-03-21] MEDS: Calcium (Elemental) 500 MG Tablet PO ×2 (07:46→17:36)
[2019-03-21 11:05] LABS: Bedside Glucose 173 mg/dL (70-110)
[2019-03-21 11:07] VITALS: BP 138/67; PULSE 84
[2019-03-21] MEDS: Metoprolol(XL)Succ 100 MG Tablet PO ×2 (11:07→22:25)
[2019-03-21 15:47] VITALS: BP 138/50; PULSE 82; RESP 16; TEMP 37.1; O2SAT 96
[2019-03-21 16:41] LABS: Bedside Glucose 155 mg/dL (70-110)
[2019-03-21 21:06] LABS: Bedside Glucose 162 mg/dL (70-110)
[2019-03-21 22:20] VITALS: O2SAT 94
[2019-03-21 22:25] VITALS: BP 127/55; PULSE 81
[2019-03-21] MEDS: Latanoprost 0.005% 1 Bottle 1 DRP EACH EYE (22:25)
[2019-03-21] MEDS: Atorvastatin Calcium 10 MG Tablet PO (22:25)
[2019-03-22] MEDS: oxyCODONE 5 MG Tablet PO (02:12)
[2019-03-22 05:50] LABS: Anion Gap 6 (5-15); BUN 13 mg/dL (7-18); BUN/Creat Ratio 18.8 RATIO (10-20); Calcium,Total 8.4 mg/dL (8.5-10.1); Chloride 105 mmol/L (98-107); Creatinine, Serum 0.69 mg/dL (0.55-1.02); EST Glomerular Filtration Rate 87 mL/min (>60); Est Glom Filt Rate - Afr Amer 105 mL/min (>60); Estimated Creatinine Clearance 40.38 ml/min; Glucose 137 mg/dL (74-106); Potassium 3.9 mmol/L (3.5-5.1); Sodium Level 138 mmol/L (136-145)
[2019-03-22] MEDS: Acetaminophen 500 MG Tablet 1000 MG PO ×3 (06:23→22:03)
[2019-03-22] MEDS: Rivaroxaban 10 MG Tablet PO (06:23)
[2019-03-22] MEDS: Cefadroxil 500 MG CAPSULE PO ×2 (06:23→17:27)
[2019-03-22] MEDS: Famotidine 20 MG Tablet PO (06:23)
[2019-03-22] MEDS: hydroCHLOROthiazide 12.5mg 12.5 MG PO (06:23)
[2019-03-22 06:46] LABS: Bedside Glucose 146 mg/dL (70-110)
[2019-03-22] MEDS: Aspirin 81 MG TAB.CHEW PO (07:46)
[2019-03-22] MEDS: Calcium (Elemental) 500 MG Tablet PO ×2 (07:47→17:26)
[2019-03-22] MEDS: Insulin Lispro 100 UNIT/ML INSULN.PEN 10 UNIT SC ×3 (07:52→17:25)
--- NOTE | 2019-03-22 08:13 | NURSING ---
Discussed code status with patient. Patient wishes to be a DNRCC-A. Purple bracelet applied.
[2019-03-22] MEDS: metFORMIN HCl 1,000 MG Tablet 1000 MG PO ×2 (08:22→17:27)
--- NOTE | 2019-03-22 09:09 | PCM.PN.RX ---
<Gardenia Cervantes M - Last Filed: 03/22/19 09:09> Progress Note - Pharmacy Subjective: [facility] ADMISSION Objective: Allergies candesartan cilexetil [From Atacand] Adverse Reaction (Verified 10/30/17 08:27) Abd cramps/diarrhea lisinopril Adverse Reaction (Verified 10/30/17 08:27) Vomiting losartan potassium [From Cozaar] Adverse Reaction (Verified 10/30/17 08:27) Other pioglitazone HCl [From Actos] Adverse Reaction (Verified 10/30/17 08:27) Other prednisone Adverse Reaction (Verified 10/30/17 08:27) Swelling simvastatin [From Zocor] Adverse Reaction (Verified 10/30/17 08:27) Other sitagliptin phosphate [From Januvia] Adverse Reaction (Verified 10/30/17 08:27) Upset Stomach Sulfa (Sulfonamide Antibiotics) Adverse Reaction (Verified 10/30/17 08:27) Other Current Medications Generic Name Dose Route Start Last Admin Trade Name Freq PRN Reason Stop Dose Admin Acetaminophen 1,000 mg 03/19/19 22:00 03/22/19 06:23 Tylenol PO 1,000 mg Q8 [facility] Administration Alendronate Sodium 70 mg 03/21/19 06:00 03/21/19 05:55 Fosamax PO 70 mg QWEEK@0600 [facility] Administration Aspirin 81 mg 03/20/19 08:00 03/22/19 07:46 Aspirin, Baby PO 81 mg DAILY@0800 [facility] Administration Atorvastatin Calcium 10 mg 03/19/19 22:00 03/21/19 22:25 Lipitor PO 10 mg QHS [facility] Administration Betamethasone Valerate 1 applic 03/19/19 15:31 Valisone 0.1% Cream TOPICAL BID PRN rash/itching Bisacodyl 10 mg 03/19/19 16:07 Dulcolax PO DAILY PRN Constipation Calcium Carbonate 500 mg 03/19/19 17:00 03/22/19 07:47 Os-Jerad 500 PO 500 mg BIDCM [facility] Administration Cefadroxil 500 mg 03/19/19 18:00 03/22/19 06:23 Duricef PO 03/24/19 23:59 500 mg BID [facility] Administration Cholecalciferol 1,000 unit 03/19/19 18:00 03/22/19 06:23 Vitamin D PO 1,000 unit BID [facility] Administration Famotidine 20 mg 03/20/19 06:00 03/22/19 06:23 Pepcid PO 20 mg DAILY [facility] Administration Hydrochlorothiazide 12.5 mg 03/20/19 06:00 03/22/19 06:23 PO 12.5 mg DAILY [facility] Administration Insulin Glargine 30 units 03/19/19 22:00 03/21/19 22:25 Lantus ([facility]) SC 30 units QHS [facility] Administration Insulin Human Lispro 10 unit 03/19/19 17:45 03/22/19 07:52 Humalog Kwikpen ([facility]) SC 10 units TIDCM [facility] Administration Latanoprost 1 drop 03/19/19 22:00 03/21/19 22:25 Xalatan Opthalmic EACH EYE 1 drop QHS [facility] Administration Meclizine HCl 25 mg 03/19/19 15:31 Antivert PO TID PRN PRN Vertigo Metformin HCl 1,000 mg 03/19/19 17:00 03/22/19 08:22 Glucophage PO 1,000 mg BIDCM [facility] Administration Metoprolol Succinate 100 mg 03/20/19 22:00 03/21/19 22:25 Toprol Xl (Beta Eligio) PO 100 mg 1000,2200 [facility] Administration Nystatin 1 applic 03/19/19 15:31 Mycostatin TOPICAL 4X/DAY PRN vaginal itching Protocol Oxycodone HCl 5 mg 03/19/19 16:08 03/22/19 02:12 Oxyir PO 5 mg Q4H PRN PRN Administration Pain Score 1-10/10 Polyethylene Glycol 17 gm 03/20/19 06:00 03/22/19 06:21 Miralax PO Not Given DAILY [facility] Potassium Chloride 20 meq 03/21/19 08:00 03/22/19 07:47 [facility] Rivaroxaban 10 mg 03/20/19 06:00 03/22/19 06:23 Xarelto PO 10 mg DAILY [facility] Administration Senna/Docusate Sodium 1 tablet 03/19/19 18:00 03/22/19 06:22 Senokot-S, Sharyn-Colace PO Not Given BID [facility] Tizanidine HCl 2 mg 03/19/19 15:31 Zanaflex PO Q8H PRN PRN muscle spasms Tuberculin PPD 5 tu 03/27/19 10:00 Tubersol, Aplisol, Ppd ID 03/27/19 10:01 X1 ONE Problem List (Last Reviewed 03/17/19 @ 18:28 by Jennifer Crow DO) Debility (Acute) Diabetes mellitus (Chronic) Tinea corporis (Chronic) Dizziness (Chronic) Vital Signs Temp Pulse Resp BP Pulse Ox 98.8 F 81 16 127/55 H 94 03/21/19 15:47 03/21/19 22:25 03/21/19 15:47 03/21/19 22:25 03/21/19 22:20 Oxygen Delivery Method Room Air Weight: 82.7 kg Body Mass Index (BMI) 30.3 Finger Stick Blood Glucose 145 Sodium 138 mmol/L (136-145) 03/22/19 05:10 Potassium 3.9 mmol/L (3.5-5.1) 03/22/19 05:10 Chloride 105 mmol/L (98-107) 03/22/19 05:10 Carbon Dioxide 27.0 mmol/L (21.0-32.0) 03/22/19 05:10 Anion Gap 6 (5-15) 03/22/19 05:10 BUN 13 mg/dL (7-18) 03/22/19 05:10 Creatinine 0.69 mg/dL (0.55-1.02) 03/22/19 05:10 Est GFR (MDRD) Af Amer 105 mL/min (>60) 03/22/19 05:10 Est GFR (MDRD) Non-Af 87 mL/min (>60) 03/22/19 05:10 BUN/Creatinine Ratio 18.8 RATIO (10-20) 03/22/19 05:10 Glucose 137 mg/dL (74-106) H 03/22/19 05:10 Assessment/Plan: 1. Pain: Tylenol 1000MG Q8H, Oxycodone 5MG Q4H PRN pain (1-10). Please continue to monitor for increased/decreased S/S of pain, PRN usage 2. DVT prophylaxis: Xarelto 10MG daily. Please continue to monitor for S/S bleeding 3. Osteoporosis: Alendronate 70MG per week, Calcium 500MG BID, D3 1000IU BID. Please continue to monitor labs appropriately 4. CV prophylaxis: Aspirin 81MG daily. Please continue to monitor for S/S bleeding/bruising 5. Hyperlipidemia: Atorvastatin 10MG QHS. Please continue to monitor lipid panel once annually or as clinically indicated 6. UTI: Duricef 500MG BID thru 03/24/2019. Please continue to monitor for infection resolution and S/S of UTI 7. Diabetes Mellitus II: Metformin 1000MG BID, Lantus 30 units QHS, Humalog 10 units TIDAC. Please continue to monitor BG levels, A1C as appropriate, and for S/S of hyper/hypoglycemia 8. CHF: Metoprolol succinate 100MG twice daily, HCTZ 12.5MG daily. Please continue to monitor fluid status, BP, and electrolytes as appropriate 9. Glaucoma: Xalatan 1GTT OU QHS. Please continue to monitor for disease progression 10. Dizziness: Meclizine 25MG TID PRN. Please continue to monitor PRN usage and effectiveness of medication 11. GERD: Famotidine 20mg PO daily. Please continue to monitor renal function and for medication effectiveness 12. Muscle spasm: Tizanidine 2MG Q8H PRN. Please continue to monitor for medication effectiveness, PRN usage 13. Potassium Deficiency: K-Dur 20mEq PO daily. Please continue to monitor electrolytes as appropriate Psychotropic Medications: None Unnecessary Medications: None Bowel Regimen: Miralax 17GM daily, Senna/Docusate 1 tablet BID, Dulcolax 10MG daily PRN. Please continue to monitor bowel movements, PRN use, and for diarrhea Date of Note:: 03/22/19 - Provider Comments Provider responsibility: Provider responsible to enter orders to implement recommendations <Huseyin Yeung Chi - Last Filed: 03/22/19 12:50> Progress Note - Pharmacy Subjective: [] Objective: Allergies candesartan cilexetil [From Atacand] Adverse Reaction (Verified 10/30/17 08:27) Abd cramps/diarrhea lisinopril Adverse Reaction (Verified 10/30/17 08:27) Vomiting losartan potassium [From Cozaar] Adverse Reaction (Verified 10/30/17 08:27) Other pioglitazone HCl [From Actos] Adverse Reaction (Verified 10/30/17 08:27) Other prednisone Adverse Reaction (Verified 10/30/17 08:27) Swelling simvastatin [From Zocor] Adverse Reaction (Verified 10/30/17 08:27) Other sitagliptin phosphate [From Stayfilm] Adverse Reaction (Verified 10/30/17 08:27) Upset Stomach Sulfa (Sulfonamide Antibiotics) Adverse Reaction (Verified 10/30/17 08:27) Other Current Medications Generic Name Dose Route Start Last Admin Trade Name Freq PRN Reason Stop Dose Admin Acetaminophen 1,000 mg 03/19/19 22:00 03/22/19 06:23 Tylenol PO 1,000 mg Q8 [facility] Administration Alendronate Sodium 70 mg 03/21/19 06:00 03/21/19 05:55 Fosamax PO 70 mg QWEEK@0600 [facility] Administration Aspirin 81 mg 03/20/19 08:00 03/22/19 07:46 Aspirin, Baby PO 81 mg DAILY@0800 [facility] Administration Atorvastatin Calcium 10 mg 03/19/19 22:00 03/21/19 22:25 Lipitor PO 10 mg QHS [facility] Administration Betamethasone Valerate 1 applic 03/19/19 15:31 Valisone 0.1% Cream TOPICAL BID PRN rash/itching Bisacodyl 10 mg 03/19/19 16:07 Dulcolax PO DAILY PRN Constipation Calcium Carbonate 500 mg 03/19/19 17:00 03/22/19 07:47 Os-Jerad 500 PO 500 mg BIDCM [facility] Administration Cefadroxil 500 mg 03/19/19 18:00 03/22/19 06:23 Duricef PO 03/24/19 23:59 500 mg BID [facility] Administration Cholecalciferol 1,000 unit 03/19/19 18:00 03/22/19 06:23 Vitamin D PO 1,000 unit BID [facility] Administration Famotidine 20 mg 03/20/19 06:00 03/22/19 06:23 Pepcid PO 20 mg DAILY [facility] Administration Hydrochlorothiazide 12.5 mg 03/20/19 06:00 03/22/19 06:23 PO 12.5 mg DAILY [facility] Administration Insulin Glargine 30 units 03/19/19 22:00 03/21/19 22:25 Lantus ([facility]) SC 30 units QHS [facility] Administration Insulin Human Lispro 10 unit 03/19/19 17:45 03/22/19 11:38 Humalog Kwikpen ([facility]) SC 10 units TIDCM [facility] Administration Latanoprost 1 drop 10/11/19 22:00 03/21/19 22:25 Xalatan Opthalmic EACH EYE 1 drop QHS [facility] Administration Meclizine HCl 25 mg 03/19/19 15:31 Antivert PO TID PRN PRN Vertigo Metformin HCl 1,000 mg 03/19/19 17:00 03/22/19 08:22 Glucophage PO 1,000 mg BIDCM [facility] Administration Metoprolol Succinate 100 mg 03/20/19 22:00 03/22/19 09:33 Toprol Xl (Beta Eligio) PO 100 mg 1000,2200 [facility] Administration Nystatin 1 applic 03/19/19 15:31 Mycostatin TOPICAL 4X/DAY PRN vaginal itching Protocol Oxycodone HCl 5 mg 03/19/19 16:08 03/22/19 02:12 Oxyir PO 5 mg Q4H PRN PRN Administration Pain Score 1-03/18 Polyethylene Glycol 17 gm 03/20/19 06:00 03/22/19 06:21 Miralax PO Not Given DAILY [facility] Potassium Chloride 20 meq 03/21/19 08:00 03/22/19 07:47 [facility] Administration Rivaroxaban 10 mg 03/20/19 06:00 03/22/19 06:23 Xarelto PO 10 mg DAILY [facility] Administration Senna/Docusate Sodium 1 tablet 03/19/19 18:00 03/22/19 06:22 Senokot-S, Sharyn-Colace PO Not Given BID [facility] Tizanidine HCl 2 mg 03/19/19 15:31 Zanaflex PO Q8H PRN PRN muscle spasms Tuberculin PPD 5 tu 03/27/19 10:00 Tubersol, Aplisol, Ppd ID 03/27/19 10:01 X1 ONE Problem List (Last Reviewed 03/17/19 @ 18:28 by Jennifer Crow DO) Debility (Acute) Diabetes mellitus (Chronic) Tinea corporis (Chronic) Dizziness (Chronic) Vital Signs Temp Pulse Resp BP Pulse Ox 98.8 F 83 16 115/45 L 94 03/21/19 15:47 03/22/19 09:33 03/21/19 15:47 03/22/19 09:33 03/21/19 22:20 Oxygen Delivery Method Room Air Weight: 82.7 kg Body Mass Index (BMI) 30.3 Finger Stick Blood Glucose 145 Sodium 138 mmol/L (136-145) 03/22/19 05:10 Potassium 3.9 mmol/L (3.5-5.1) 03/22/19 05:10 Chloride 105 mmol/L (98-107) 03/22/19 05:10 Carbon Dioxide 27.0 mmol/L (21.0-32.0) 03/22/19 05:10 Anion Gap 6 (5-15) 03/22/19 05:10 BUN 13 mg/dL (7-18) 03/22/19 05:10 Creatinine 0.69 mg/dL (0.55-1.02) 03/22/19 05:10 Est GFR (MDRD) Af Amer 105 mL/min (>60) 03/22/19 05:10 Est GFR (MDRD) Non-Af 87 mL/min (>60) 03/22/19 05:10 BUN/Creatinine Ratio 18.8 RATIO (10-20) 03/22/19 05:10 Glucose 137 mg/dL (74-106) H 03/22/19 05:10 Assessment/Plan: Psychotropic Medications: Unnecessary Medications: Bowel Regimen: - Provider Comments Provider responsibility: Provider responsible to enter orders to implement recommendations Provider Comments to Recommendations by Pharmacy: Agree
[2019-03-22 09:33] VITALS: BP 115/45; PULSE 83
[2019-03-22] MEDS: Metoprolol(XL)Succ 100 MG Tablet PO ×2 (09:33→22:03)
[2019-03-22 10:31] LABS: Bedside Glucose 149 mg/dL (70-110)
[2019-03-22 12:23] LABS: Pathologist Review Reviewed
[2019-03-22 15:15] VITALS: BP 131/53; PULSE 82; RESP 19; TEMP 36.7; O2SAT 95
[2019-03-22 16:56] LABS: Bedside Glucose 132 mg/dL (70-110)
[2019-03-22 21:06] LABS: Bedside Glucose 170 mg/dL (70-110)
[2019-03-22 22:03] VITALS: BP 157/52; PULSE 85
[2019-03-22] MEDS: Atorvastatin Calcium 10 MG Tablet PO (22:03)
[2019-03-22] MEDS: Latanoprost 0.005% 1 Bottle 1 DRP EACH EYE (22:04)
[2019-03-23] MEDS: Acetaminophen 500 MG Tablet 1000 MG PO ×3 (05:54→21:19)
[2019-03-23] MEDS: Famotidine 20 MG Tablet PO (05:54)
[2019-03-23] MEDS: Rivaroxaban 10 MG Tablet PO (05:54)
[2019-03-23] MEDS: Cefadroxil 500 MG CAPSULE PO ×2 (05:54→17:15)
[2019-03-23] MEDS: hydroCHLOROthiazide 12.5mg 12.5 MG PO (05:55)
[2019-03-23] MEDS: Menthol/Lanolin/Calamine/Znox 113 GM Tube 1 APPLIC TOPICAL ×2 (06:00→21:16)
[2019-03-23 06:36] LABS: Bedside Glucose 182 mg/dL (70-110)
[2019-03-23] MEDS: Aspirin 81 MG TAB.CHEW PO (07:46)
[2019-03-23] MEDS: Calcium (Elemental) 500 MG Tablet PO ×2 (07:46→17:15)
[2019-03-23] MEDS: metFORMIN HCl 1,000 MG Tablet 1000 MG PO ×2 (07:47→17:15)
[2019-03-23] MEDS: Insulin Lispro 100 UNIT/ML INSULN.PEN 10 UNIT SC ×3 (07:47→17:16)
[2019-03-23 10:23] VITALS: BP 144/63; PULSE 88
[2019-03-23] MEDS: Metoprolol(XL)Succ 100 MG Tablet PO ×2 (10:23→21:17)
[2019-03-23 11:01] LABS: Bedside Glucose 185 mg/dL (70-110)
--- NOTE | 2019-03-23 12:47 | CASEMGMT ---
Social Work Completed updated Advanced Directives with patient. Patient no longer wants nephew, Filipe Santos as POA or notified. She has named Rosita Santos, niece, as HPOA. Copies are placed in pt chart. Juana Moy, EX ASSISTANT/PROGRAM DIRECTOR KILN SETTER
[2019-03-23 14:16] VITALS: PULSE 83; RESP 16; O2SAT 98
[2019-03-23 15:34] VITALS: BP 154/63; PULSE 84; RESP 21; TEMP 36.2; O2SAT 100
--- NOTE | 2019-03-23 16:45 | CHAPLAIN ---
Type of Pastoral Visit _x__ Initial Visit ___ Follow-up Visit ___ On-call Visit ___ General Patient Visit ___ Spiritual Assessment ___ Family Conference ___ Bereavement ___ Rapid Response ___ Code Blue ___ Other (describe below) Pastoral Care Referral From _x__ Patient ___ Family ___ Nurse ___ Physician ___ Farmworker [employer] ___ Manager Of Digital ___ Other (describe below) Sacrament/Intervention _x__ Active listening ___ Anointing ___ Alevism ___ Bereavement ___ Communion ___ Yolanda exploration ___ ___ Life review _x__ Prayer ___ Reconciliation ___ Sacrament of Sick _x__ Supportive presence ___ Wedding ___ Other (describe below) Pastoral Comments patient just returned from having her hair done and she is happy about it; pt states that she needs someone to build a ramp for her home
[2019-03-23 17:11] LABS: Bedside Glucose 122 mg/dL (70-110)
[2019-03-23 21:01] LABS: Bedside Glucose 222 mg/dL (70-110)
[2019-03-23 21:17] VITALS: BP 156/67; PULSE 86
[2019-03-23] MEDS: Latanoprost 0.005% 1 Bottle 1 DRP EACH EYE (21:18)
[2019-03-23] MEDS: Atorvastatin Calcium 10 MG Tablet PO (21:19)
[2019-03-24] MEDS: Rivaroxaban 10 MG Tablet PO (05:22)
[2019-03-24] MEDS: Cefadroxil 500 MG CAPSULE PO ×2 (05:22→17:51)
[2019-03-24] MEDS: Acetaminophen 500 MG Tablet 1000 MG PO ×3 (05:22→20:59)
[2019-03-24] MEDS: hydroCHLOROthiazide 12.5mg 12.5 MG PO (05:22)
[2019-03-24] MEDS: Famotidine 20 MG Tablet PO (05:22)
[2019-03-24] MEDS: Menthol/Lanolin/Calamine/Znox 113 GM Tube 1 APPLIC TOPICAL ×2 (05:22→20:56)
[2019-03-24 06:36] LABS: Bedside Glucose 178 mg/dL (70-110)
[2019-03-24] MEDS: Insulin Lispro 100 UNIT/ML INSULN.PEN 10 UNIT SC ×3 (08:00→17:49)
[2019-03-24] MEDS: Aspirin 81 MG TAB.CHEW PO (08:01)
[2019-03-24] MEDS: metFORMIN HCl 1,000 MG Tablet 1000 MG PO ×2 (08:01→17:52)
[2019-03-24] MEDS: Calcium (Elemental) 500 MG Tablet PO ×2 (08:02→17:51)
[2019-03-24 10:23] VITALS: BP 125/73; PULSE 83
[2019-03-24] MEDS: Metoprolol(XL)Succ 100 MG Tablet PO ×2 (10:23→21:01)
[2019-03-24 11:36] LABS: Bedside Glucose 110 mg/dL (70-110)
--- NOTE | 2019-03-24 14:34 | CASEMGMT ---
Social Work IDT met with patient, nephew Maurice, and neighbor friend Annie for care plan meeting. Discussed patient's progress in therapy with [facility]. Pt is min assist for supine to sit, CGA 3 ft with FWW, mod for LE ADLs and learning to use adaptive equipment. Mod assist for toileting tasks and needs FWW for support. Pt and neighbor are looking into getting a ramp as pt will not be able to do stairs. Pt will continue to work with therapy until ready to DC home. Explained Medicare and secondary insurance coverage. Provided pt MOW and [employer] resources. Will continue to follow. ANABELLA Taylor MENTAL HEALTH PROGRAM SPECIALIST
[2019-03-24 16:00] VITALS: BP 135/60; PULSE 80; RESP 18; TEMP 36.5
[2019-03-24 16:51] LABS: Bedside Glucose 129 mg/dL (70-110)
[2019-03-24] MEDS: Atorvastatin Calcium 10 MG Tablet PO (20:59)
[2019-03-24] MEDS: Latanoprost 0.005% 1 Bottle 1 DRP EACH EYE (20:59)
[2019-03-24 21:01] VITALS: BP 150/66; PULSE 91
[2019-03-24 21:11] LABS: Bedside Glucose 144 mg/dL (70-110)
[2019-03-25] MEDS: hydroCHLOROthiazide 12.5mg 12.5 MG PO (05:38)
[2019-03-25] MEDS: Acetaminophen 500 MG Tablet 1000 MG PO ×3 (05:38→20:59)
[2019-03-25] MEDS: Famotidine 20 MG Tablet PO (05:38)
[2019-03-25] MEDS: Rivaroxaban 10 MG Tablet PO (05:38)
[2019-03-25] MEDS: Menthol/Lanolin/Calamine/Znox 113 GM Tube 1 APPLIC TOPICAL ×2 (05:38→20:58)
[2019-03-25 06:21] LABS: Bedside Glucose 163 mg/dL (70-110)
[2019-03-25] MEDS: Aspirin 81 MG TAB.CHEW PO (07:57)
[2019-03-25] MEDS: Calcium (Elemental) 500 MG Tablet PO ×2 (07:57→17:09)
[2019-03-25] MEDS: metFORMIN HCl 1,000 MG Tablet 1000 MG PO ×2 (07:57→17:09)
[2019-03-25] MEDS: Insulin Lispro 100 UNIT/ML INSULN.PEN 10 UNIT SC ×3 (07:58→17:48)
[2019-03-25 11:04] VITALS: BP 130/70; PULSE 74
[2019-03-25] MEDS: Metoprolol(XL)Succ 100 MG Tablet PO ×2 (11:04→20:58)
[2019-03-25 11:06] LABS: Bedside Glucose 183 mg/dL (70-110)
[2019-03-25 16:00] VITALS: BP 146/65; PULSE 89; RESP 18; TEMP 36.7; O2SAT 94
--- NOTE | 2019-03-25 16:15 | PCA ---
pt had blood on under akers and alpesh area, reported to rn maykel
[2019-03-25 17:10] LABS: Bedside Glucose 102 mg/dL (70-110)
[2019-03-25 20:58] VITALS: BP 149/60; PULSE 89
[2019-03-25] MEDS: Latanoprost 0.005% 1 Bottle 1 DRP EACH EYE (20:58)
[2019-03-25] MEDS: Atorvastatin Calcium 10 MG Tablet PO (20:58)
[2019-03-25 21:15] LABS: Bedside Glucose 172 mg/dL (70-110)
[2019-03-26] MEDS: Famotidine 20 MG Tablet PO (04:57)
[2019-03-26] MEDS: Rivaroxaban 10 MG Tablet PO (04:57)
[2019-03-26] MEDS: hydroCHLOROthiazide 12.5mg 12.5 MG PO (04:57)
[2019-03-26] MEDS: Menthol/Lanolin/Calamine/Znox 113 GM Tube 1 APPLIC TOPICAL ×2 (04:58→22:05)
[2019-03-26] MEDS: Acetaminophen 500 MG Tablet 1000 MG PO ×3 (04:59→21:59)
[2019-03-26 06:41] LABS: Bedside Glucose 180 mg/dL (70-110)
[2019-03-26] MEDS: metFORMIN HCl 1,000 MG Tablet 1000 MG PO ×2 (07:47→17:25)
[2019-03-26] MEDS: Aspirin 81 MG TAB.CHEW PO (07:47)
[2019-03-26] MEDS: Insulin Lispro 100 UNIT/ML INSULN.PEN 10 UNIT SC ×3 (07:47→17:26)
[2019-03-26] MEDS: Calcium (Elemental) 500 MG Tablet PO ×2 (07:49→17:25)
[2019-03-26 11:05] VITALS: BP 122/58; PULSE 80
[2019-03-26] MEDS: Metoprolol(XL)Succ 100 MG Tablet PO ×2 (11:05→21:59)
[2019-03-26 11:46] LABS: Bedside Glucose 174 mg/dL (70-110)
[2019-03-26 15:40] VITALS: BP 145/59; PULSE 84; RESP 18; TEMP 36.4; O2SAT 96
[2019-03-26 17:01] LABS: Bedside Glucose 176 mg/dL (70-110)
[2019-03-26 21:00] LABS: Bedside Glucose 190 mg/dL (70-110)
[2019-03-26 21:59] VITALS: BP 178/59; PULSE 84
[2019-03-26] MEDS: Atorvastatin Calcium 10 MG Tablet PO (21:59)
[2019-03-26] MEDS: Latanoprost 0.005% 1 Bottle 1 DRP EACH EYE (22:00)
[2019-03-27] MEDS: Acetaminophen 500 MG Tablet 1000 MG PO ×3 (05:41→21:08)
[2019-03-27] MEDS: Rivaroxaban 10 MG Tablet PO (05:41)
[2019-03-27] MEDS: hydroCHLOROthiazide 12.5mg 12.5 MG PO (05:41)
[2019-03-27] MEDS: Famotidine 20 MG Tablet PO (05:41)
[2019-03-27 05:42] LABS: Absolute Lymphocyte Count 1.04 X10^3/uL (0.83-4.51); Absolute Neutrophil Count 3.7 X10^3/uL (2.0-7.7); Basophil# 0.03 X10^3/uL; Basophil% 0.5 % (0-1); Eosinophil# 0.07 X10^3/uL; Eosinophils% 1.2 % (0-5); Hematocrit 37.9 % (37-47); Lymphocyte # 1.04 X10^3/ul (4.0); Lymphocyte % 17.3 % (19-41); Mean Corp Hgb Conc 31.7 g/dL (32-36); Mean Corpuscular Hgb 25.1 pg (27.0-32.0); Mean Corpuscular Volume 79.1 fL (81-99); Mean Platelet Vol. 9.4 fl (6.2-12.0); Monocyte# 0.91 X10^3/uL; Monocyte% 15.1 % (0-10); NRBC Flagged by Analyzer 0 % (0-5); Neutrophil % 61.6 % (47-70); Platelet Count 131 K/mm3 (150-450); RBC Distribution Width CV 17.7 % (11.6-14.6); RBC Distribution Width SD 48.9 fl (35.1-43.9); Red Blood Count 4.79 M/mm3 (4.2-5.4)
[2019-03-27] MEDS: Menthol/Lanolin/Calamine/Znox 113 GM Tube 1 APPLIC TOPICAL ×2 (05:42→21:08)
[2019-03-27 06:03] LABS: Anion Gap 7 (5-15); BUN 11 mg/dL (7-18); BUN/Creat Ratio 15.8 RATIO (10-20); Calcium,Total 9.3 mg/dL (8.5-10.1); Chloride 98 mmol/L (98-107); EST Glomerular Filtration Rate 86 mL/min (>60); Est Glom Filt Rate - Afr Amer 104 mL/min (>60); Estimated Creatinine Clearance 40.38 ml/min; Glucose 179 mg/dL (74-106); Potassium 4.2 mmol/L (3.5-5.1); Sodium Level 132 mmol/L (136-145)
[2019-03-27 06:50] LABS: Bedside Glucose 176 mg/dL (70-110)
[2019-03-27] MEDS: Aspirin 81 MG TAB.CHEW PO (07:57)
[2019-03-27] MEDS: Insulin Lispro 100 UNIT/ML INSULN.PEN 10 UNIT SC ×3 (07:57→17:23)
[2019-03-27] MEDS: metFORMIN HCl 1,000 MG Tablet 1000 MG PO ×2 (07:57→17:23)
[2019-03-27] MEDS: Calcium (Elemental) 500 MG Tablet PO ×2 (07:58→17:22)
[2019-03-27 10:51] VITALS: BP 140/52; PULSE 78
[2019-03-27] MEDS: Metoprolol(XL)Succ 100 MG Tablet PO ×2 (10:51→21:07)
[2019-03-27] MEDS: Tuberculin,Purif.prot.deriv. 50 TU/ML Vial 5 ML ID (10:52)
[2019-03-27 11:06] LABS: Bedside Glucose 202 mg/dL (70-110)
[2019-03-27 15:21] VITALS: BP 156/62; PULSE 91; RESP 21; TEMP 36.7; O2SAT 97
[2019-03-27 16:56] LABS: Bedside Glucose 141 mg/dL (70-110)
[2019-03-27 21:07] VITALS: BP 154/73; PULSE 82
[2019-03-27] MEDS: Latanoprost 0.005% 1 Bottle 1 DRP EACH EYE (21:08)
[2019-03-27] MEDS: Atorvastatin Calcium 10 MG Tablet PO (21:08)
[2019-03-27 21:16] LABS: Bedside Glucose 151 mg/dL (70-110)
[2019-03-28] MEDS: Alendronate Sodium 70 MG Tablet PO (05:24)
[2019-03-28] MEDS: hydroCHLOROthiazide 12.5mg 12.5 MG PO (05:24)
[2019-03-28] MEDS: Menthol/Lanolin/Calamine/Znox 113 GM Tube 1 APPLIC TOPICAL ×2 (05:24→21:44)
[2019-03-28] MEDS: Acetaminophen 500 MG Tablet 1000 MG PO ×3 (05:24→21:44)
[2019-03-28] MEDS: Rivaroxaban 10 MG Tablet PO (05:24)
[2019-03-28] MEDS: Famotidine 20 MG Tablet PO (05:24)
[2019-03-28 06:21] LABS: Bedside Glucose 171 mg/dL (70-110)
--- NOTE | 2019-03-28 07:14 | NURSING ---
Addendum entered by Eduarda Stearns 03/29/19 06:57: Per pt uses aspercreme at home. Pharmacy does not carry. Pt informed RN does not want pharmacological interchange.Pt denies discomfort at this time. Original Note: Pt requesting lidocaine cream for right lower extremity. Per pt uses at home for discomfort for time to time. Will update Dr Yeung.
[2019-03-28] MEDS: Insulin Lispro 100 UNIT/ML INSULN.PEN 10 UNIT SC ×3 (07:36→17:12)
[2019-03-28] MEDS: Aspirin 81 MG TAB.CHEW PO (07:38)
[2019-03-28] MEDS: metFORMIN HCl 1,000 MG Tablet 1000 MG PO ×2 (07:38→17:12)
[2019-03-28] MEDS: Calcium (Elemental) 500 MG Tablet PO ×2 (07:42→17:12)
[2019-03-28 10:01] VITALS: BP 153/73; PULSE 83
[2019-03-28 10:02] VITALS: BP 153/73; PULSE 83
[2019-03-28] MEDS: Metoprolol(XL)Succ 100 MG Tablet PO ×2 (10:02→21:44)
[2019-03-28 11:35] LABS: Bedside Glucose 182 mg/dL (70-110)
[2019-03-28 11:40] VITALS: PULSE 89; RESP 16; O2SAT 98
[2019-03-28 15:15] VITALS: BP 145/66; PULSE 80; RESP 20; TEMP 36.3; O2SAT 95
[2019-03-28 16:50] LABS: Bedside Glucose 120 mg/dL (70-110)
[2019-03-28 21:41] LABS: Bedside Glucose 188 mg/dL (70-110)
[2019-03-28] MEDS: Latanoprost 0.005% 1 Bottle 1 DRP EACH EYE (21:43)
[2019-03-28 21:44] VITALS: BP 150/63; PULSE 84
[2019-03-28] MEDS: Atorvastatin Calcium 10 MG Tablet PO (21:44)
[2019-03-29] MEDS: hydroCHLOROthiazide 12.5mg 12.5 MG PO (05:41)
[2019-03-29] MEDS: Rivaroxaban 10 MG Tablet PO (05:41)
[2019-03-29] MEDS: Menthol/Lanolin/Calamine/Znox 113 GM Tube 1 APPLIC TOPICAL ×2 (05:41→21:17)
[2019-03-29] MEDS: Famotidine 20 MG Tablet PO (05:41)
[2019-03-29] MEDS: Acetaminophen 500 MG Tablet 1000 MG PO ×3 (05:41→21:14)
[2019-03-29 06:26] LABS: Bedside Glucose 199 mg/dL (70-110)
[2019-03-29] MEDS: metFORMIN HCl 1,000 MG Tablet 1000 MG PO ×2 (08:30→17:51)
[2019-03-29] MEDS: Aspirin 81 MG TAB.CHEW PO (08:30)
[2019-03-29] MEDS: Insulin Lispro 100 UNIT/ML INSULN.PEN 10 UNIT SC ×3 (08:31→17:51)
[2019-03-29] MEDS: Calcium (Elemental) 500 MG Tablet PO ×2 (08:31→17:51)
[2019-03-29 09:52] VITALS: BP 124/68; PULSE 90
[2019-03-29 09:52] LABS: Vitamin D,25 Hydroxy 29.5 ng/mL (29.95-100.01)
[2019-03-29] MEDS: Metoprolol(XL)Succ 100 MG Tablet PO ×2 (09:52→21:15)
[2019-03-29 10:46] LABS: Bedside Glucose 245 mg/dL (70-110)
[2019-03-29 15:45] VITALS: BP 137/66; PULSE 82; RESP 18; TEMP 36.7; O2SAT 97
[2019-03-29 17:00] LABS: Bedside Glucose 93 mg/dL (70-110)
[2019-03-29 21:15] VITALS: BP 143/61; PULSE 94
[2019-03-29] MEDS: Atorvastatin Calcium 10 MG Tablet PO (21:15)
[2019-03-29] MEDS: Latanoprost 0.005% 1 Bottle 1 DRP EACH EYE (21:15)
[2019-03-29 21:21] LABS: Bedside Glucose 150 mg/dL (70-110)
[2019-03-30] MEDS: Rivaroxaban 10 MG Tablet PO (06:26)
[2019-03-30] MEDS: Famotidine 20 MG Tablet PO (06:26)
[2019-03-30] MEDS: hydroCHLOROthiazide 12.5mg 12.5 MG PO (06:26)
[2019-03-30] MEDS: Acetaminophen 500 MG Tablet 1000 MG PO ×3 (06:26→21:04)
[2019-03-30] MEDS: Menthol/Lanolin/Calamine/Znox 113 GM Tube 1 APPLIC TOPICAL ×2 (06:27→21:05)
[2019-03-30 06:31] LABS: Bedside Glucose 197 mg/dL (70-110)
[2019-03-30] MEDS: metFORMIN HCl 1,000 MG Tablet 1000 MG PO ×2 (07:58→17:25)
[2019-03-30] MEDS: Aspirin 81 MG TAB.CHEW PO (07:58)
[2019-03-30] MEDS: Calcium (Elemental) 500 MG Tablet PO ×2 (07:58→17:26)
[2019-03-30] MEDS: Insulin Lispro 100 UNIT/ML INSULN.PEN 10 UNIT SC ×3 (07:59→17:26)
[2019-03-30 09:22] VITALS: BP 130/72; PULSE 88
[2019-03-30] MEDS: Metoprolol(XL)Succ 100 MG Tablet PO ×2 (09:22→21:03)
[2019-03-30 11:46] LABS: Bedside Glucose 203 mg/dL (70-110)
[2019-03-30 15:04] VITALS: BP 144/67; PULSE 85; RESP 21; TEMP 36.3; O2SAT 98
[2019-03-30 16:50] LABS: Bedside Glucose 118 mg/dL (70-110)
[2019-03-30 20:51] LABS: Bedside Glucose 169 mg/dL (70-110)
[2019-03-30] MEDS: Latanoprost 0.005% 1 Bottle 1 DRP EACH EYE (21:00)
[2019-03-30 21:03] VITALS: BP 147/69; PULSE 86
[2019-03-30] MEDS: Atorvastatin Calcium 10 MG Tablet PO (21:04)
[2019-03-31] MEDS: Menthol/Lanolin/Calamine/Znox 113 GM Tube 1 APPLIC TOPICAL ×2 (04:50→21:28)
[2019-03-31] MEDS: Acetaminophen 500 MG Tablet 1000 MG PO ×3 (04:51→21:28)
[2019-03-31] MEDS: Famotidine 20 MG Tablet PO (04:51)
[2019-03-31] MEDS: Rivaroxaban 10 MG Tablet PO (04:51)
[2019-03-31] MEDS: hydroCHLOROthiazide 12.5mg 12.5 MG PO (04:51)
[2019-03-31 06:31] LABS: Bedside Glucose 200 mg/dL (70-110)
[2019-03-31] MEDS: Calcium (Elemental) 500 MG Tablet PO ×2 (07:45→17:35)
[2019-03-31] MEDS: Aspirin 81 MG TAB.CHEW PO (07:45)
[2019-03-31] MEDS: metFORMIN HCl 1,000 MG Tablet 1000 MG PO ×2 (07:45→17:35)
[2019-03-31] MEDS: Insulin Lispro 100 UNIT/ML INSULN.PEN 10 UNIT SC ×3 (07:46→17:34)
[2019-03-31 10:13] VITALS: BP 100/52; PULSE 81
[2019-03-31] MEDS: Metoprolol(XL)Succ 100 MG Tablet PO ×2 (10:13→21:29)
[2019-03-31 11:30] LABS: Bedside Glucose 165 mg/dL (70-110)
--- NOTE | 2019-03-31 14:54 | NURSING ---
Addendum entered by Jennifer Gavin Yayo 04/01/19 16:25: no concern at this time, feels it may be from the xarelto. If pt begins having clots then may need to stop blood thinner. After blood thinner is finished then if pt still bleeding to call and make appt for f/u, but vaginal biopsy was negative on mar 3 Addendum entered by Jennifer Gavin Yayo 04/01/19 15:58: Dr Kj Diaz office notified of pt vaginal bleeding, nurse to return call if any orders or if pt need f/u appt Addendum entered by Jennifer Gavin Yayo 04/01/19 15:05: dr Granado office returned call and feel pt needs to go back to [place] where she was treated for endometrial cancer. Addendum entered by Jennifer Gavin Yayo 03/31/19 19:24: DR RO WANTS PT TO F/U WITH DR GRANADO IF PT OK WITH IT, WILL SET UP APPT VJ. Original Note: pt w/vaginal bleeding, not rectal bleeding. assessed rectum and not blood, but when wiping vaginal opening, noted bright red bleeding. will update dr ro.
[2019-03-31 16:00] VITALS: BP 118/65; PULSE 77; RESP 19; TEMP 36.3; O2SAT 95
[2019-03-31 16:55] LABS: Bedside Glucose 94 mg/dL (70-110)
[2019-03-31 17:16] VITALS: PULSE 78; RESP 18
[2019-03-31 21:26] LABS: Bedside Glucose 150 mg/dL (70-110)
[2019-03-31] MEDS: Atorvastatin Calcium 10 MG Tablet PO (21:27)
[2019-03-31] MEDS: Latanoprost 0.005% 1 Bottle 1 DRP EACH EYE (21:27)
[2019-03-31 21:29] VITALS: BP 157/72; PULSE 88
[2019-04-01] MEDS: Menthol/Lanolin/Calamine/Znox 113 GM Tube 1 APPLIC TOPICAL ×2 (04:40→21:21)
[2019-04-01] MEDS: Acetaminophen 500 MG Tablet 1000 MG PO ×3 (04:40→21:23)
[2019-04-01] MEDS: Rivaroxaban 10 MG Tablet PO (04:41)
[2019-04-01] MEDS: hydroCHLOROthiazide 12.5mg 12.5 MG PO (04:41)
[2019-04-01] MEDS: Famotidine 20 MG Tablet PO (04:41)
[2019-04-01 06:36] LABS: Bedside Glucose 159 mg/dL (70-110)
[2019-04-01] MEDS: Insulin Lispro 100 UNIT/ML INSULN.PEN 10 UNIT SC ×3 (08:22→17:42)
[2019-04-01] MEDS: Aspirin 81 MG TAB.CHEW PO (08:22)
[2019-04-01] MEDS: Calcium (Elemental) 500 MG Tablet PO ×2 (08:22→17:44)
[2019-04-01] MEDS: metFORMIN HCl 1,000 MG Tablet 1000 MG PO ×2 (08:22→17:43)
--- NOTE | 2019-04-01 09:45 | MDS.RN ---
Information for the mds was obtained from review of the clinical record, interview of resident, staff, and direct observation of resident's care.
[2019-04-01 10:58] VITALS: BP 106/56; PULSE 80
[2019-04-01] MEDS: Metoprolol(XL)Succ 100 MG Tablet PO ×2 (10:58→21:23)
[2019-04-01 11:26] LABS: Bedside Glucose 203 mg/dL (70-110)
[2019-04-01 15:23] VITALS: BP 155/62; PULSE 83; RESP 21; TEMP 36.4; O2SAT 97
[2019-04-01 17:31] LABS: Bedside Glucose 180 mg/dL (70-110)
[2019-04-01 21:21] LABS: Bedside Glucose 177 mg/dL (70-110)
[2019-04-01 21:23] VITALS: BP 140/68; PULSE 78
[2019-04-01] MEDS: Atorvastatin Calcium 10 MG Tablet PO (21:23)
[2019-04-01] MEDS: Latanoprost 0.005% 1 Bottle 1 DRP EACH EYE (21:23)
[2019-04-02] MEDS: Famotidine 20 MG Tablet PO (04:55)
[2019-04-02] MEDS: Acetaminophen 500 MG Tablet 1000 MG PO ×3 (04:55→21:35)
[2019-04-02] MEDS: Menthol/Lanolin/Calamine/Znox 113 GM Tube 1 APPLIC TOPICAL ×2 (04:55→21:34)
[2019-04-02] MEDS: hydroCHLOROthiazide 12.5mg 12.5 MG PO (04:55)
[2019-04-02] MEDS: Rivaroxaban 10 MG Tablet PO (04:57)
[2019-04-02 06:35] LABS: Bedside Glucose 189 mg/dL (70-110)
[2019-04-02] MEDS: Calcium (Elemental) 500 MG Tablet PO ×2 (08:17→18:08)
[2019-04-02] MEDS: metFORMIN HCl 1,000 MG Tablet 1000 MG PO ×2 (08:17→18:08)
[2019-04-02] MEDS: Insulin Lispro 100 UNIT/ML INSULN.PEN 10 UNIT SC ×3 (08:17→18:04)
[2019-04-02] MEDS: Aspirin 81 MG TAB.CHEW PO (08:17)
[2019-04-02 10:54] VITALS: BP 134/80; PULSE 88
[2019-04-02] MEDS: Metoprolol(XL)Succ 100 MG Tablet PO ×2 (10:54→21:40)
[2019-04-02 11:36] LABS: Bedside Glucose 196 mg/dL (70-110)
[2019-04-02 15:31] VITALS: BP 130/63; PULSE 80; RESP 17; TEMP 36.7; O2SAT 96
[2019-04-02 16:46] LABS: Bedside Glucose 79 mg/dL (70-110)
[2019-04-02 21:11] LABS: Bedside Glucose 189 mg/dL (70-110)
[2019-04-02] MEDS: Latanoprost 0.005% 1 Bottle 1 DRP EACH EYE (21:35)
[2019-04-02] MEDS: Atorvastatin Calcium 10 MG Tablet PO (21:36)
[2019-04-02 21:40] VITALS: BP 162/65; PULSE 83
[2019-04-03] MEDS: Rivaroxaban 10 MG Tablet PO (06:11)
[2019-04-03] MEDS: Famotidine 20 MG Tablet PO (06:11)
[2019-04-03] MEDS: Acetaminophen 500 MG Tablet 1000 MG PO ×3 (06:11→21:16)
[2019-04-03] MEDS: hydroCHLOROthiazide 12.5mg 12.5 MG PO (06:11)
[2019-04-03] MEDS: Menthol/Lanolin/Calamine/Znox 113 GM Tube 1 APPLIC TOPICAL ×2 (06:12→21:23)
[2019-04-03 06:45] LABS: Bedside Glucose 181 mg/dL (70-110)
[2019-04-03] MEDS: Aspirin 81 MG TAB.CHEW PO (08:06)
[2019-04-03] MEDS: metFORMIN HCl 1,000 MG Tablet 1000 MG PO ×2 (08:06→17:06)
[2019-04-03] MEDS: Calcium (Elemental) 500 MG Tablet PO ×2 (08:06→17:06)
[2019-04-03] MEDS: Insulin Lispro 100 UNIT/ML INSULN.PEN 10 UNIT SC ×3 (08:07→17:29)
[2019-04-03 08:35] LABS: Absolute Lymphocyte Count 0.66 X10^3/uL (0.83-4.51); Basophil# 0.04 X10^3/uL; Basophil% 1.1 % (0-1); Eosinophil# 0.06 X10^3/uL; Eosinophils% 1.7 % (0-5); Hematocrit 35.5 % (37-47); Hemoglobin 11.5 g/dL (12.0-15.0); Lymphocyte # 0.66 X10^3/ul (4.0); Lymphocyte % 18.9 % (19-41); Mean Corp Hgb Conc 32.4 g/dL (32-36); Mean Corpuscular Hgb 24.7 pg (27.0-32.0); Mean Corpuscular Volume 76.3 fL (81-99); Mean Platelet Vol. 9.4 fl (6.2-12.0); Monocyte# 0.68 X10^3/uL; Monocyte% 19.5 % (0-10); NRBC Flagged by Analyzer 0 % (0-5); Neutrophil # 1.95 X10^3/uL (2.7-7.7); Neutrophil % 55.9 % (47-70); Platelet Count 106 K/mm3 (150-450); RBC Distribution Width CV 17.5 % (11.6-14.6); RBC Distribution Width SD 48.3 fl (35.1-43.9); Red Blood Count 4.65 M/mm3 (4.2-5.4); White Blood Count 3.5 K/mm3 (4.4-11.0)
[2019-04-03 09:03] LABS: Anion Gap 8 (5-15); BUN 17 mg/dL (7-18); BUN/Creat Ratio 26.8 RATIO (10-20); Calcium,Total 9.1 mg/dL (8.5-10.1); Chloride 95 mmol/L (98-107); Creatinine, Serum 0.64 mg/dL (0.55-1.02); EST Glomerular Filtration Rate 96 mL/min (>60); Est Glom Filt Rate - Afr Amer 116 mL/min (>60); Estimated Creatinine Clearance 40.38 ml/min; Glucose 191 mg/dL (74-106); Potassium 4.3 mmol/L (3.5-5.1); Sodium Level 130 mmol/L (136-145)
[2019-04-03 10:50] LABS: Bedside Glucose 256 mg/dL (70-110)
[2019-04-03 11:04] VITALS: BP 142/75; PULSE 100
[2019-04-03] MEDS: Metoprolol(XL)Succ 100 MG Tablet PO ×2 (11:04→21:20)
[2019-04-03 15:26] VITALS: BP 140/58; PULSE 83; RESP 17; TEMP 36.7; O2SAT 97
[2019-04-03 17:05] LABS: Bedside Glucose 181 mg/dL (70-110)
[2019-04-03 21:00] LABS: Bedside Glucose 212 mg/dL (70-110)
[2019-04-03 21:20] VITALS: BP 140/58; PULSE 79
[2019-04-03] MEDS: Atorvastatin Calcium 10 MG Tablet PO (21:20)
[2019-04-03] MEDS: Latanoprost 0.005% 1 Bottle 1 DRP EACH EYE (21:20)
[2019-04-04 06:30] LABS: Bedside Glucose 178 mg/dL (70-110)
[2019-04-04] MEDS: Famotidine 20 MG Tablet PO (06:34)
[2019-04-04] MEDS: Alendronate Sodium 70 MG Tablet PO (06:34)
[2019-04-04] MEDS: Acetaminophen 500 MG Tablet 1000 MG PO ×3 (06:34→21:51)
[2019-04-04] MEDS: Rivaroxaban 10 MG Tablet PO (06:34)
[2019-04-04] MEDS: amLODIPine 2.5 MG Tablet PO (06:34)
[2019-04-04] MEDS: Menthol/Lanolin/Calamine/Znox 113 GM Tube 1 APPLIC TOPICAL ×2 (06:34→21:51)
[2019-04-04 06:38] VITALS: BP 151/55; PULSE 76
[2019-04-04] MEDS: Insulin Lispro 100 UNIT/ML INSULN.PEN 10 UNIT SC ×3 (08:12→17:49)
[2019-04-04] MEDS: Calcium (Elemental) 500 MG Tablet PO ×2 (08:13→17:49)
[2019-04-04] MEDS: metFORMIN HCl 1,000 MG Tablet 1000 MG PO ×2 (08:13→17:49)
[2019-04-04] MEDS: Aspirin 81 MG TAB.CHEW PO (08:18)
[2019-04-04 10:00] VITALS: BP 151/55; PULSE 76
[2019-04-04] MEDS: Metoprolol(XL)Succ 100 MG Tablet PO ×2 (10:00→21:51)
[2019-04-04 10:46] LABS: Bedside Glucose 345 mg/dL (70-110)
[2019-04-04 15:44] VITALS: BP 134/62; PULSE 72; RESP 18; TEMP 36.7; O2SAT 96
[2019-04-04 16:50] LABS: Bedside Glucose 86 mg/dL (70-110)
[2019-04-04] MEDS: Latanoprost 0.005% 1 Bottle 1 DRP EACH EYE (21:49)
[2019-04-04 21:51] VITALS: BP 157/66; PULSE 79
[2019-04-04 21:51] LABS: Bedside Glucose 140 mg/dL (70-110)
[2019-04-04] MEDS: Atorvastatin Calcium 10 MG Tablet PO (21:51)
[2019-04-05] MEDS: Acetaminophen 500 MG Tablet 1000 MG PO ×3 (04:36→21:26)
[2019-04-05] MEDS: Rivaroxaban 10 MG Tablet PO (04:37)
[2019-04-05] MEDS: amLODIPine 2.5 MG Tablet PO (04:37)
[2019-04-05] MEDS: Famotidine 20 MG Tablet PO (04:37)
[2019-04-05] MEDS: Menthol/Lanolin/Calamine/Znox 113 GM Tube 1 APPLIC TOPICAL ×2 (04:37→21:28)
[2019-04-05 06:03] LABS: Anion Gap 8 (5-15); BUN 18 mg/dL (7-18); BUN/Creat Ratio 25.9 RATIO (10-20); Calcium,Total 8.8 mg/dL (8.5-10.1); Chloride 100 mmol/L (98-107); Creatinine, Serum 0.69 mg/dL (0.55-1.02); EST Glomerular Filtration Rate 86 mL/min (>60); Est Glom Filt Rate - Afr Amer 104 mL/min (>60); Estimated Creatinine Clearance 40.38 ml/min; Glucose 143 mg/dL (74-106); Potassium 4.1 mmol/L (3.5-5.1); Sodium Level 134 mmol/L (136-145)
[2019-04-05 06:41] LABS: Bedside Glucose 144 mg/dL (70-110)
[2019-04-05] MEDS: Insulin Lispro 100 UNIT/ML INSULN.PEN 10 UNIT SC ×3 (07:58→17:44)
[2019-04-05] MEDS: Calcium (Elemental) 500 MG Tablet PO ×2 (07:59→17:11)
[2019-04-05] MEDS: metFORMIN HCl 1,000 MG Tablet 1000 MG PO ×2 (07:59→17:11)
[2019-04-05] MEDS: Aspirin 81 MG TAB.CHEW PO (08:00)
--- NOTE | 2019-04-05 08:37 | CASEMGMT ---
Social Work BIMS and PHQ-9 completed for MDS assessment. Juana Moy, MANUFACTURING SCHEDULER MANUFACTURING COST ESTIMATOR
[2019-04-05 10:38] VITALS: BP 128/67; PULSE 72
[2019-04-05] MEDS: Metoprolol(XL)Succ 100 MG Tablet PO ×2 (10:38→21:25)
[2019-04-05 11:01] LABS: Bedside Glucose 199 mg/dL (70-110)
[2019-04-05 15:48] VITALS: BP 145/59; PULSE 80; RESP 16; TEMP 37.2; O2SAT 97
[2019-04-05 17:11] LABS: Bedside Glucose 113 mg/dL (70-110)
[2019-04-05 20:51] LABS: Bedside Glucose 212 mg/dL (70-110)
[2019-04-05] MEDS: Latanoprost 0.005% 1 Bottle 1 DRP EACH EYE (21:21)
[2019-04-05 21:25] VITALS: BP 152/70; PULSE 85
[2019-04-05] MEDS: Atorvastatin Calcium 10 MG Tablet PO (21:26)
[2019-04-06] MEDS: Menthol/Lanolin/Calamine/Znox 113 GM Tube 1 APPLIC TOPICAL ×2 (04:46→21:42)
[2019-04-06] MEDS: Rivaroxaban 10 MG Tablet PO (04:46)
[2019-04-06] MEDS: amLODIPine 2.5 MG Tablet PO (04:46)
[2019-04-06] MEDS: Acetaminophen 500 MG Tablet 1000 MG PO ×3 (04:46→21:40)
[2019-04-06] MEDS: Famotidine 20 MG Tablet PO (04:46)
[2019-04-06 06:36] LABS: Bedside Glucose 159 mg/dL (70-110)
[2019-04-06] MEDS: Insulin Lispro 100 UNIT/ML INSULN.PEN 10 UNIT SC ×3 (07:43→17:22)
[2019-04-06] MEDS: Aspirin 81 MG TAB.CHEW PO (07:44)
[2019-04-06] MEDS: metFORMIN HCl 1,000 MG Tablet 1000 MG PO ×2 (07:44→17:21)
[2019-04-06] MEDS: Calcium (Elemental) 500 MG Tablet PO ×2 (07:49→17:22)
[2019-04-06 10:46] VITALS: BP 127/56; PULSE 75
[2019-04-06] MEDS: Metoprolol(XL)Succ 100 MG Tablet PO ×2 (10:46→21:40)
[2019-04-06 11:11] LABS: Bedside Glucose 125 mg/dL (70-110)
[2019-04-06 15:19] VITALS: BP 123/54; PULSE 83; RESP 20; TEMP 36.6; O2SAT 96
[2019-04-06 17:01] LABS: Bedside Glucose 143 mg/dL (70-110)
[2019-04-06 21:35] LABS: Bedside Glucose 162 mg/dL (70-110)
[2019-04-06] MEDS: Latanoprost 0.005% 1 Bottle 1 DRP EACH EYE (21:38)
[2019-04-06 21:40] VITALS: BP 146/61; PULSE 85
[2019-04-06] MEDS: Atorvastatin Calcium 10 MG Tablet PO (21:40)
[2019-04-07] MEDS: Menthol/Lanolin/Calamine/Znox 113 GM Tube 1 APPLIC TOPICAL ×2 (05:34→21:47)
[2019-04-07] MEDS: amLODIPine 2.5 MG Tablet PO (05:34)
[2019-04-07] MEDS: Rivaroxaban 10 MG Tablet PO (05:34)
[2019-04-07] MEDS: Famotidine 20 MG Tablet PO (05:34)
[2019-04-07] MEDS: Acetaminophen 500 MG Tablet 1000 MG PO ×3 (05:34→21:45)
[2019-04-07 06:31] LABS: Bedside Glucose 165 mg/dL (70-110)
[2019-04-07] MEDS: Insulin Lispro 100 UNIT/ML INSULN.PEN 10 UNIT SC ×3 (08:33→18:10)
[2019-04-07] MEDS: Aspirin 81 MG TAB.CHEW PO (08:35)
[2019-04-07] MEDS: Calcium (Elemental) 500 MG Tablet PO ×2 (08:36→16:47)
[2019-04-07] MEDS: metFORMIN HCl 1,000 MG Tablet 1000 MG PO ×2 (08:36→16:46)
[2019-04-07 11:07] VITALS: BP 124/70; PULSE 88
[2019-04-07] MEDS: Metoprolol(XL)Succ 100 MG Tablet PO ×2 (11:07→21:44)
[2019-04-07 11:26] LABS: Bedside Glucose 215 mg/dL (70-110)
[2019-04-07 16:00] VITALS: BP 128/48; PULSE 70; RESP 21; TEMP 36.5; O2SAT 100
[2019-04-07 16:50] LABS: Bedside Glucose 71 mg/dL (70-110)
[2019-04-07 18:31] LABS: Bedside Glucose 129 mg/dL (70-110)
[2019-04-07 21:16] LABS: Bedside Glucose 158 mg/dL (70-110)
[2019-04-07 21:44] VITALS: BP 151/68; PULSE 89
[2019-04-07] MEDS: Latanoprost 0.005% 1 Bottle 1 DRP EACH EYE (21:44)
[2019-04-07] MEDS: Atorvastatin Calcium 10 MG Tablet PO (21:44)
[2019-04-08] MEDS: Rivaroxaban 10 MG Tablet PO (06:00)
[2019-04-08] MEDS: Acetaminophen 500 MG Tablet 1000 MG PO ×3 (06:00→21:17)
[2019-04-08] MEDS: Famotidine 20 MG Tablet PO (06:01)
[2019-04-08] MEDS: amLODIPine 2.5 MG Tablet PO (06:01)
[2019-04-08] MEDS: Menthol/Lanolin/Calamine/Znox 113 GM Tube 1 APPLIC TOPICAL ×2 (06:03→21:18)
[2019-04-08 06:31] LABS: Bedside Glucose 152 mg/dL (70-110)
[2019-04-08] MEDS: Calcium (Elemental) 500 MG Tablet PO ×2 (08:23→17:28)
[2019-04-08] MEDS: metFORMIN HCl 1,000 MG Tablet 1000 MG PO ×2 (08:23→17:27)
[2019-04-08] MEDS: Aspirin 81 MG TAB.CHEW PO (08:23)
[2019-04-08] MEDS: Insulin Lispro 100 UNIT/ML INSULN.PEN 10 UNIT SC ×3 (08:24→17:28)
[2019-04-08 10:05] VITALS: BP 150/62; PULSE 72
[2019-04-08] MEDS: Metoprolol(XL)Succ 100 MG Tablet PO ×2 (10:05→21:25)
[2019-04-08 11:25] LABS: Bedside Glucose 254 mg/dL (70-110)
[2019-04-08 15:36] VITALS: BP 161/50; PULSE 83; RESP 18; TEMP 36.7; O2SAT 96
[2019-04-08 17:16] LABS: Bedside Glucose 155 mg/dL (70-110)
[2019-04-08] MEDS: Latanoprost 0.005% 1 Bottle 1 DRP EACH EYE (21:17)
[2019-04-08] MEDS: Atorvastatin Calcium 10 MG Tablet PO (21:18)
[2019-04-08 21:25] VITALS: BP 154/69; PULSE 89
[2019-04-08 21:30] LABS: Bedside Glucose 168 mg/dL (70-110)
[2019-04-09] MEDS: Acetaminophen 500 MG Tablet 1000 MG PO ×3 (05:36→22:05)
[2019-04-09] MEDS: Famotidine 20 MG Tablet PO (05:36)
[2019-04-09] MEDS: Rivaroxaban 10 MG Tablet PO (05:36)
[2019-04-09] MEDS: amLODIPine 2.5 MG Tablet PO (05:36)
[2019-04-09] MEDS: Menthol/Lanolin/Calamine/Znox 113 GM Tube 1 APPLIC TOPICAL ×2 (05:40→22:12)
[2019-04-09 06:40] LABS: Bedside Glucose 136 mg/dL (70-110)
[2019-04-09] MEDS: Insulin Lispro 100 UNIT/ML INSULN.PEN 10 UNIT SC ×3 (07:52→17:19)
[2019-04-09] MEDS: Aspirin 81 MG TAB.CHEW PO (07:53)
[2019-04-09] MEDS: metFORMIN HCl 1,000 MG Tablet 1000 MG PO ×2 (07:53→16:47)
[2019-04-09] MEDS: Calcium (Elemental) 500 MG Tablet PO ×2 (07:54→16:47)
[2019-04-09 10:41] LABS: Bedside Glucose 122 mg/dL (70-110)
[2019-04-09 10:54] VITALS: BP 124/54; PULSE 76
[2019-04-09] MEDS: Metoprolol(XL)Succ 100 MG Tablet PO ×2 (10:54→22:05)
[2019-04-09 16:00] VITALS: BP 149/63; PULSE 88; RESP 16; TEMP 36.6; O2SAT 98
[2019-04-09 16:55] LABS: Bedside Glucose 98 mg/dL (70-110)
[2019-04-09 21:31] LABS: Bedside Glucose 89 mg/dL (70-110)
--- NOTE | 2019-04-09 21:47 | NURSING ---
Dr. Yeung notified of patient blood sugar of 89. New orders given to decrease lantus to 10 units at HS and d/c scheduled Humalog.
[2019-04-09 22:05] VITALS: BP 167/62; PULSE 80
[2019-04-09] MEDS: Atorvastatin Calcium 10 MG Tablet PO (22:06)
[2019-04-09] MEDS: Latanoprost 0.005% 1 Bottle 1 DRP EACH EYE (22:07)
[2019-04-10 05:46] VITALS: BP 164/76; PULSE 75; RESP 18; O2SAT 97
[2019-04-10] MEDS: Menthol/Lanolin/Calamine/Znox 113 GM Tube 1 APPLIC TOPICAL ×2 (05:49→22:01)
[2019-04-10] MEDS: oxyCODONE 5 MG Tablet PO (05:50)
[2019-04-10] MEDS: Rivaroxaban 10 MG Tablet PO (05:51)
[2019-04-10] MEDS: Acetaminophen 500 MG Tablet 1000 MG PO ×3 (05:51→21:55)
[2019-04-10] MEDS: Famotidine 20 MG Tablet PO (05:51)
[2019-04-10] MEDS: amLODIPine 2.5 MG Tablet PO (05:51)
[2019-04-10 06:35] LABS: Bedside Glucose 160 mg/dL (70-110)
[2019-04-10] MEDS: metFORMIN HCl 1,000 MG Tablet 1000 MG PO ×2 (08:21→16:50)
[2019-04-10] MEDS: Aspirin 81 MG TAB.CHEW PO (08:21)
[2019-04-10] MEDS: Calcium (Elemental) 500 MG Tablet PO ×2 (08:22→16:50)
[2019-04-10 08:26] LABS: Bedside Glucose 189 mg/dL (70-110)
[2019-04-10 10:17] VITALS: BP 147/71; PULSE 75
[2019-04-10] MEDS: Metoprolol(XL)Succ 100 MG Tablet PO ×2 (10:17→21:55)
[2019-04-10 11:16] LABS: Bedside Glucose 216 mg/dL (70-110)
[2019-04-10 15:26] VITALS: BP 94/45; PULSE 68; RESP 19; TEMP 36.2; O2SAT 100
[2019-04-10 16:52] LABS: Bedside Glucose 119 mg/dL (70-110)
[2019-04-10 21:15] LABS: Bedside Glucose 233 mg/dL (70-110)
[2019-04-10] MEDS: Latanoprost 0.005% 1 Bottle 1 DRP EACH EYE (21:54)
[2019-04-10 21:55] VITALS: BP 151/66; PULSE 81
[2019-04-10] MEDS: Atorvastatin Calcium 10 MG Tablet PO (21:55)
--- NOTE | 2019-04-10 22:30 | NURSING ---
Pt having a moderate amount of blood and clots from vagina. Dr. Yeung aware, and new order to DC nadine.
[2019-04-11 06:31] LABS: Bedside Glucose 175 mg/dL (70-110)
[2019-04-11] MEDS: amLODIPine 2.5 MG Tablet PO (06:50)
[2019-04-11] MEDS: Famotidine 20 MG Tablet PO (06:50)
[2019-04-11] MEDS: Acetaminophen 500 MG Tablet 1000 MG PO ×3 (06:50→21:34)
[2019-04-11] MEDS: Alendronate Sodium 70 MG Tablet PO (06:50)
[2019-04-11] MEDS: Menthol/Lanolin/Calamine/Znox 113 GM Tube 1 APPLIC TOPICAL ×2 (06:51→21:37)
[2019-04-11] MEDS: Aspirin 81 MG TAB.CHEW PO (07:53)
[2019-04-11] MEDS: metFORMIN HCl 1,000 MG Tablet 1000 MG PO ×2 (07:53→17:36)
[2019-04-11] MEDS: Calcium (Elemental) 500 MG Tablet PO ×2 (07:54→17:36)
[2019-04-11 11:43] VITALS: BP 152/61; PULSE 77
[2019-04-11] MEDS: Metoprolol(XL)Succ 100 MG Tablet PO ×2 (11:43→21:34)
[2019-04-11 16:00] VITALS: BP 116/60; PULSE 54; RESP 18; TEMP 36.4; O2SAT 96
[2019-04-11 16:41] LABS: Bedside Glucose 138 mg/dL (70-110)
[2019-04-11 16:46] VITALS: PULSE 77; RESP 16
[2019-04-11 21:06] LABS: Bedside Glucose 211 mg/dL (70-110)
[2019-04-11] MEDS: Latanoprost 0.005% 1 Bottle 1 DRP EACH EYE (21:33)
[2019-04-11 21:34] VITALS: BP 136/65; PULSE 89
[2019-04-11] MEDS: Atorvastatin Calcium 10 MG Tablet PO (21:34)
[2019-04-12] MEDS: Acetaminophen 500 MG Tablet 1000 MG PO ×3 (05:29→21:40)
[2019-04-12] MEDS: Famotidine 20 MG Tablet PO (05:29)
[2019-04-12] MEDS: Menthol/Lanolin/Calamine/Znox 113 GM Tube 1 APPLIC TOPICAL ×2 (05:31→21:40)
[2019-04-12 06:26] LABS: Bedside Glucose 224 mg/dL (70-110)
[2019-04-12 08:25] VITALS: PULSE 84
[2019-04-12] MEDS: Metoprolol(XL)Succ 100 MG Tablet PO ×2 (08:25→21:41)
[2019-04-12] MEDS: Aspirin 81 MG TAB.CHEW PO (08:25)
[2019-04-12] MEDS: Calcium (Elemental) 500 MG Tablet PO ×2 (08:26→16:55)
[2019-04-12] MEDS: metFORMIN HCl 1,000 MG Tablet 1000 MG PO ×2 (09:15→16:53)
[2019-04-12 11:00] LABS: Bedside Glucose 271 mg/dL (70-110)
[2019-04-12 16:45] LABS: Bedside Glucose 147 mg/dL (70-110)
[2019-04-12 16:49] VITALS: BP 171/45; PULSE 72; RESP 16; TEMP 36.5; O2SAT 95
--- NOTE | 2019-04-12 20:04 | PCM.TCUNOT ---
Subjective: Resident seen in room, sitting in recliner. She states she has cold symptoms, runny nose, sore throat, post nasal drainage, no cough. Vitals/I&O's: Vital Signs Temp Pulse Resp BP Pulse Ox 97.7 F L 72 16 171/45 H 95 04/12/19 16:49 04/12/19 16:49 04/12/19 16:49 04/12/19 16:49 04/12/19 16:49 Oxygen Flow Rate (L/min) 95 Oxygen Delivery Method Room Air Weight: 79.917 kg Body Mass Index (BMI) 30.3 Finger Stick Blood Glucose 145 Intake and Output for Last 24 Hours 04/11/19 04/11/19 04/12/19 00:59 23:59 23:59 Intake Total 720 / 720 Balance 720 / 720 Laboratory Results 04/11/19 20:55: POC Glucose 211 H 04/12/19 06:13: POC Glucose 224 H 04/12/19 10:52: POC Glucose 271 H 04/12/19 16:37: POC Glucose 147 H Past Medical History Past Medical History (Chronic Problems): Chronic Problems (Last Reviewed 03/17/19 @ 18:28 by Jennifer Crow DO) HTN (hypertension) (Chronic) Diabetes mellitus type 2 in obese (Chronic) GERD (gastroesophageal reflux disease) (Chronic) HLD (hyperlipidemia) (Chronic) Endometrial cancer (Chronic) has had MARYANA/BSO and recently a mass in the vagina was biopsied....path is pending Venous insufficiency of both lower extremities (Chronic) KIMBERLEE (obstructive sleep apnea) (Chronic) not compliant with CPAP Obesity (BMI 30.0-34.9) (Chronic) Lower extremity weakness (Chronic) Frequent falls (Chronic) Osteoarthritis (Chronic) Glaucoma (Chronic) Diverticulosis (Chronic) Mild aortic stenosis (Chronic) Diabetes mellitus (Chronic) Tinea corporis (Chronic) Dizziness (Chronic) Medical History: Medical History (Last Reviewed 03/17/19 @ 18:28 by Jennifer Crow DO) Cough R05 Diabetes E11.9 GERD (gastroesophageal reflux disease) K21.9 Heart murmur R01.1 Sleep apnea G47.30 HTN (hypertension) I10 Allergies candesartan cilexetil [From [employer]] Adverse Reaction (Verified 10/30/17 08:27) Abd cramps/diarrhea lisinopril Adverse Reaction (Verified 10/30/17 08:27) Vomiting losartan potassium [From Cozaar] Adverse Reaction (Verified 10/30/17 08:27) Other pioglitazone HCl [From Actos] Adverse Reaction (Verified 10/30/17 08:27) Other prednisone Adverse Reaction (Verified 10/30/17 08:27) Swelling simvastatin [From Zocor] Adverse Reaction (Verified 10/30/17 08:27) Other sitagliptin phosphate [From Januvia] Adverse Reaction (Verified 10/30/17 08:27) Upset Stomach Sulfa (Sulfonamide Antibiotics) Adverse Reaction (Verified 10/30/17 08:27) Other Home Medications: Ambulatory Orders Medication Instructions Recorded Aspirin [Aspirin, Baby] 81 mg PO DAILY@0800 04/17/13 Nizatidine [Axid] 150 mg PO BID PRN PRN 04/17/13 Nystatin [Mycostatin] 1 applic TOPICAL 4X/DAY PRN 04/17/13 metFORMIN HCl [Glucophage] 1,000 mg PO BIDCM 04/17/13 atorvastatin 10 mg tablet 10 mg PO QHS 10/15/17 insulin aspart (U-100) 100 unit/mL 10 unit SC TIDCM 10/15/17 (3 mL) subcutaneous pen insulin glargine (U-100) 100 30 unit SC QHS 10/15/17 unit/mL subcutaneous solution Latanoprost 1 drop EACH EYE QHS 10/30/17 Dulaglutide [Trulicity] 1.5 mg SQ QWEEK 03/16/19 Hydrochlorothiazide [Hctz] 12.5 mg PO DAILY 03/16/19 Metoprolol Succinate 100 mg PO BID 03/16/19 Ranitidine [Zantac] 150 mg PO BIDCM 03/16/19 Triamcinolone 0.1% Cream [Kenalog] 1 applic TOPICAL BID PRN 03/16/19 Acetaminophen [Tylenol] 1,000 mg PO Q8 03/19/19 Alendronate Sodium [Fosamax] 70 mg PO QWEEK 03/19/19 Calcium (Elemental) [Os-Jerad 500] 500 mg PO BIDCM 03/19/19 Cefadroxil Hydrate [Duricef] 500 mg PO BID 03/19/19 Cholecalciferol (VIT D3) [Vitamin 1,000 unit PO BID 03/19/19 D] Meclizine HCl [Antivert] 25 mg PO TID PRN PRN tab 03/19/19 Polyethylene Glycol 3350 [Miralax] 17 gm PO DAILY 03/19/19 Rivaroxaban [Xarelto] 10 mg PO DAILY 03/19/19 Tizanidine HCl [Zanaflex] 2 mg PO Q8H PRN PRN tab 03/19/19 Surgical History: Surgical History (Last Reviewed 03/17/19 @ 18:28 by Jennifer Crow DO) S/P MARYANA-BSO Z90.710, Z90.722, Z90.79 S/P hemorrhoidectomy Z98.890, Z87.19 Status post colonoscopy Z98.890 uterine ablation uterine ca Surgical History: hysterectomy - MARYANA-BSO, - - Hemorrhoidectomy, Uterine ablation. 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 Lives: Alone Smoking Status: Former smoker Tobacco Use: Non-smoker Alcohol: None Drugs: None - *Family History Maternal History Items: Cancer - breast in her mother Sibling History Items: - - 2 brothers with leukemia Capacity - Capacity Assessment Tool Can the patient make a choice & communicate that choice?: Yes Can the patient understand benefits, risks and alternatives?: Yes Can the patient make a logical, rational choice?: Yes Is the choice the patient makes consistent w/ their values?: Yes Is there an impending, emergent risk to the patient?: No Does the patient have an Advance Directive?: Yes Is there a Surrogate Available?: Yes i.e. HCPOA: Yes i.e. close relative (spouse, child, parent, sibling)?: Yes Review of Systems Constitutional: Denies: Chills, Fever, Weight Change HEENT: Denies: Head Aches, Sinus Congestion, Sinus Drainage Cardiovascular: Denies: Chest Pain, Palpitations Respiratory: Denies: Cough, Shortness of breath at rest, Sputum production Gastrointestinal: Denies: Abdominal Pain, Nausea, Vomiting Genitourinary: Denies: Dysuria Musculoskeletal: Denies: Joint Pain, Joint Tenderness Skin: Denies: Rash, Wounds Neurological: Denies: Numbness, Tingling, Focal weakness Psychiatric: Denies: Anxiety, Depression, Homicidal Ideations, Suicidal Ideations Hematologic/ Lymphatic: Denies: Easy Bruising, Easy Bleeding Patient Problems: Active and Suspected Problems (Last Reviewed 03/17/19 @ 18:28 by Jennifer Crow DO) Debility (Acute) - Physical Exam Vitals/I&O's: Vital Signs Temp Pulse Resp BP Pulse Ox 97.7 F L 72 16 171/45 H 95 04/12/19 16:49 04/12/19 16:49 04/12/19 16:49 04/12/19 16:49 04/12/19 16:49 Oxygen Flow Rate (L/min) 95 Oxygen Delivery Method Room Air Weight: 79.917 kg Body Mass Index (BMI) 30.3 Finger Stick Blood Glucose 145 Intake and Output for Last 24 Hours 04/11/19 04/11/19 04/12/19 00:59 23:59 23:59 Intake Total 720 / 720 Balance 720 / 720 General: Alert, Oriented x3, Cooperative HEENT: Atraumatic, PERRLA, EOMI, Normocephalic Neck: Supple, No JVD, Negative Carotid Bruits Lungs: Clear to auscultation, Normal air movement Cardiovascular: Regular rate, No murmurs Abdomen: Bowel Sounds Present, Soft, Non Tender Extremities: No edema, Capillary Refill Less than 3 Seconds, - - Left lower extremity SLC. Skin: No rashes, No breakdown Musculoskeletal: No Tenderness to Palpation of Joints or Extremities Neurological: Cranial nerves II-XII grossly intact Psych/Mental Status: Normal Affect, Appropriate Laboratory Results 04/11/19 20:55: POC Glucose 211 H 04/12/19 06:13: POC Glucose 224 H 04/12/19 10:52: POC Glucose 271 H 04/12/19 16:37: POC Glucose 147 H Current Medications Acetaminophen (Tylenol) 1,000 mg PO Q8 [facility] Last Admin: 04/12/19 13:32 Dose: 1,000 mg Documented by: Alendronate Sodium (Fosamax) 70 mg PO QWEEK@0600 [facility] Last Admin: 04/11/19 06:50 Dose: 70 mg Documented by: Aspirin (Aspirin, Baby) 81 mg PO DAILY@0800 [facility] Last Admin: 04/12/19 08:25 Dose: 81 mg Documented by: Atorvastatin Calcium (Lipitor) 10 mg PO QHS [facility] Last Admin: 04/11/19 21:34 Dose: 10 mg Documented by: Betamethasone Valerate (Valisone 0.1% Cream) 1 applic TOPICAL BID PRN PRN Reason: rash/itching Bisacodyl (Dulcolax) 10 mg PO DAILY PRN PRN Reason: Constipation Calamine/Phenol (Calmoseptine Ointment) 1 applic TOPICAL 0600,2200 [facility]; Protocol Last Admin: 04/12/19 05:31 Dose: 1 applicatio Documented by: Calcium Carbonate ([facility]Jerad 500) [facility] Admin: 04/12/19 16:55 Dose: 500 mg Documented by: Cholecalciferol (Vitamin D) 1,000 unit PO BID [facility] Last Admin: 04/12/19 16:56 Dose: 1,000 unit Documented by: Famotidine (Pepcid) 20 mg PO DAILY [facility] Last Admin: 04/12/19 05:29 Dose: 20 mg Documented by: Hydrocortisone Acetate (Anusol Hc) 25 mg RECTAL BID PRN PRN PRN Reason: Hemorrhoids Insulin Glargine (Lantus (Bkc)) 20 units SC QHS [facility] Insulin Human Lispro (Humalog Kwikpen (Bkc)) 7 unit SC TIDAC [facility] Latanoprost (Xalatan Opthalmic) 1 drop EACH EYE QHS [facility] Last Admin: 04/11/19 21:33 Dose: 1 drop Documented by: Meclizine HCl (Antivert) 25 mg PO TID PRN PRN PRN Reason: Vertigo Metformin [facility]ophage) [facility] Last Admin: 04/12/19 16:53 Dose: 1,000 mg Documented by: Metoprolol Succinate (Toprol Xl (Beta Eligio)) 100 mg PO 1000,2200 [facility] Last Admin: 04/12/19 08:25 Dose: 100 mg Documented by: Nystatin (Mycostatin) 1 applic TOPICAL 4X/DAY PRN; Protocol PRN Reason: vaginal itching Oxycodone HCl (Oxyir) 5 mg PO Q4H PRN PRN PRN Reason: Pain Score 1-1010 Last Admin: 04/10/19 05:50 Dose: 5 mg Documented by: Polyethylene Glycol (Miralax) 17 gm PO DAILY [facility] Last Admin: 04/12/19 05:29 Dose: Not Given Documented by: Potassium Chloride (K-Dur) [facility] Last Admin: 04/12/19 08:24 Dose: 20 meq Documented by: Senna/Docusate Sodium (Senokot-S, Sharyn-Colace) 1 tablet PO BID [facility] Last Admin: 04/12/19 16:51 Dose: Not Given Documented by: Tizanidine HCl (Zanaflex) 2 mg PO Q8H PRN PRN PRN Reason: muscle spasms Assessment/Plan All Active Problems (Last Reviewed 03/17/19 @ 18:28 by Jennifer Crow DO) Personal history of colonic polyps (Acute) Closed left ankle fracture (Acute) Inability to ambulate due to ankle or foot (Acute) Hyponatremia (Resolved) Dehydration (Resolved) Urinary tract infection (Acute) Debility (Acute) 78 year old female with below past medical history hospitalized for left ankle fracture, treated with cast, complicated by electrolyte abnormalities, acute on chronic heart failure with preserved ejection fraction, admitted to TCU with debility, here for rehabilitation, strengthening, prior to discharge home alone. Debility - PT/OT. Pain - Tylenol 1000MG Q8H, Oxycodone 5MG Q4H PRN pain (1-10) Bowel - Miralax 17GM daily, Senna/colace 1 tablet BID, Dulcolax 10MG daily PRN. Pneumonia vaccination - Administer Prevnar 13 and/or Pneumovax 23 as necessary. DVT prophylaxis - Xarelto 10MG stopped due to bleeding hemorrhoids. Osteoporosis - Alendronate 70MG per week, Calcium 500MG BID, D3 1000IU BID. CV prophylaxis - Aspirin 81MG daily. Hyperlipidemia - Atorvastatin 80MG QHS. Diabetes Mellitus II - Metformin 1000MG BID, Lantus 20 units QHS, Humalog 7 units TIDAC. acute on chronic diastolic heart failure - Metoprolol succinate 100MG twice daily, Lasix 40MG PO x 1 dose, HCTZ 12.5MG daily. Glaucoma - Xalatan 1GTT OU QHS. Dizziness - Meclizine 25MG TID PRN. Tinea Corporis - Nystatin topical 4x/day. GERD - Famotidine 20MG daily. Muscle spasm - Tizanidine 2MG Q8H PRN. Rash - Valisone cream topical BID. Hemorrhoids - Anusol 25MG PA BID PRN. Skin irritation - Calmoseptine BID. Hypokalemia - K-Dur 20MEQ daily. URI symptoms - Respiratory panel ordered, respiratory isolation until results back.
[2019-04-12 21:21] LABS: Bedside Glucose 229 mg/dL (70-110)
[2019-04-12] MEDS: Latanoprost 0.005% 1 Bottle 1 DRP EACH EYE (21:40)
[2019-04-12 21:41] VITALS: BP 155/68; PULSE 88
[2019-04-12] MEDS: Atorvastatin Calcium 10 MG Tablet PO (21:41)
[2019-04-12 22:00] VITALS: PULSE 80; RESP 16; O2SAT 99
[2019-04-13] MEDS: Acetaminophen 500 MG Tablet 1000 MG PO ×3 (05:20→21:50)
[2019-04-13] MEDS: Famotidine 20 MG Tablet PO (05:20)
[2019-04-13] MEDS: Menthol/Lanolin/Calamine/Znox 113 GM Tube 1 APPLIC TOPICAL ×2 (05:23→19:53)
[2019-04-13 06:30] LABS: Bedside Glucose 167 mg/dL (70-110)
[2019-04-13] MEDS: Calcium (Elemental) 500 MG Tablet PO ×2 (07:53→17:08)
[2019-04-13] MEDS: metFORMIN HCl 1,000 MG Tablet 1000 MG PO ×2 (07:54→17:08)
[2019-04-13] MEDS: Insulin Lispro 100 UNIT/ML INSULN.PEN 7 UNIT SC ×3 (07:54→17:11)
[2019-04-13] MEDS: Aspirin 81 MG TAB.CHEW PO (07:54)
[2019-04-13 07:59] VITALS: PULSE 75; O2SAT 97
[2019-04-13 10:23] VITALS: BP 119/47; PULSE 78
[2019-04-13] MEDS: Metoprolol(XL)Succ 100 MG Tablet PO ×2 (10:23→21:50)
[2019-04-13 11:06] LABS: Bedside Glucose 151 mg/dL (70-110)
--- NOTE | 2019-04-13 13:39 | CASEMGMT ---
Social Work Spoke with patient with friend/neighbor, Annie, present, about discharge plans. Pt agreeable to IDT discharge date 04/23 home with HHC PT/OT/SN. Pt and friend know pt needs ramp to enter the home. Friend states it is mcc done and will be done in time for DC home. Provided list of skilled HHC agencies for pt to choose. No DME needs. Plan: DC home with C PT/OT/SN. ANABELLA TaylorW
--- NOTE | 2019-04-13 14:22 | CHAPLAIN ---
Type of Pastoral Visit ___ Initial Visit _x__ Follow-up Visit ___ On-call Visit ___ General Patient Visit ___ Spiritual Assessment ___ Family Conference ___ Bereavement ___ Rapid Response ___ Code Blue ___ Other (describe below) Pastoral Care Referral From _x__ Patient ___ Family ___ Nurse ___ Physician ___ Decorating Instructor ___ Service Rig Operator ___ Other (describe below) Sacrament/Intervention _x__ Active listening ___ Anointing ___ Synagogue ___ Bereavement ___ Communion ___ Yolanda exploration ___ _x__ Life review _x__ Prayer ___ Reconciliation ___ Sacrament of Sick ___ Supportive presence ___ Wedding ___ Other (describe below) Pastoral Comments
[2019-04-13 15:51] VITALS: BP 120/58; PULSE 87; RESP 18; TEMP 37.2; O2SAT 97
[2019-04-13 16:56] LABS: Bedside Glucose 210 mg/dL (70-110)
--- NOTE | 2019-04-13 19:10 | NURSING ---
resp panel negative, pt c/o nasal congestion and prod cough, dr ro ordered zithromax. pt updated
[2019-04-13] MEDS: Azithromycin 250 MG Tablet 500 MG PO (19:52)
--- NOTE | 2019-04-13 20:22 | PCM.DC ---
- Discharge Diagnoses Current Active Problems: Current Active and Chronic Problems (Last Reviewed 03/17/19 @ 18:28 by Jennifer Crow DO) Debility (Acute) Diabetes mellitus (Chronic) Tinea corporis (Chronic) Dizziness (Chronic) You will use the following diet at home:: No restrictions, Regular Your food should be the consistency of: Regular Your liquids should be the consistency of: Regular/Thin Discharge Activity: Return to Normal Activity, May Shower, Use Walker Weight Bearing Status: No weight bearing - Left lower extremity. Keep extremity elevated above heart level: Left Leg Call your doctor if you observe: Fever of 101 or Higher, Inability to urinate, Inability to have a bowel movement, Shortness of breath, Chest pain, Uncontrolled pain Allergies/Adverse Reactions: Allergies candesartan cilexetil [From [employer]] Adverse Reaction (Verified 10/30/17 08:27) Abd cramps/diarrhea lisinopril Adverse Reaction (Verified 10/30/17 08:27) Vomiting losartan potassium [From Cozaar] Adverse Reaction (Verified 10/30/17 08:27) Other pioglitazone HCl [From Actos] Adverse Reaction (Verified 10/30/17 08:27) Other prednisone Adverse Reaction (Verified 10/30/17 08:27) Swelling simvastatin [From Zocor] Adverse Reaction (Verified 10/30/17 08:27) Other sitagliptin phosphate [From Januvia] Adverse Reaction (Verified 10/30/17 08:27) Upset Stomach Sulfa (Sulfonamide Antibiotics) Adverse Reaction (Verified 10/30/17 08:27) Other Medications to take at Discharge Aspirin [Aspirin, Baby] 81 mg PO DAILY@0800 04/17/13 Nystatin [Mycostatin] 1 applic TOPICAL 4X/DAY PRN 04/17/13 metFORMIN HCl [Glucophage] 1,000 mg PO BIDCM 04/17/13 atorvastatin 10 mg tablet 10 mg PO QHS 10/15/17 insulin aspart (U-100) 100 unit/mL (3 mL) subcutaneous pen 10 unit SC TIDCM 10/15/17 insulin glargine (U-100) 100 unit/mL subcutaneous solution 30 unit SC QHS 10/15/17 Latanoprost 1 drop EACH EYE QHS 10/30/17 Dulaglutide [Trulicity] 1.5 mg SQ QWEEK 03/16/19 Metoprolol Succinate 100 mg PO BID 03/16/19 Ranitidine [Zantac] 150 mg PO BIDCM 03/16/19 Acetaminophen [Tylenol] 1,000 mg PO Q8 03/19/19 Calcium (Elemental) [Os-Jerad 500] 500 mg PO BIDCM 03/19/19 Cholecalciferol (VIT D3) [Vitamin D3] 1,000 unit PO BID 03/19/19 Meclizine HCl [Antivert] 25 mg PO TID PRN PRN tab 03/19/19 Alendronate Sodium [Fosamax] 70 mg PO QWEEK #4 tab 04/13/19 Menthol/Lanolin/Calamine/Znox [Calmoseptine Ointment] 1 applic TOPICAL 0600,2200 tube 04/13/19 Mineral Oil/Petrolatum,White [Eucerin] 1 applic TOPICAL QHS jar 04/13/19 Potassium Chloride [K-Dur] 20 meq PO DAILYCM #30 tab 04/13/19 The following prescriptions were given: Alendronate Sodium [Fosamax] 70 mg PO QWEEK #4 tab Transmission Status: Pending to [facility] [place] [facility] Potassium Chloride [K-Dur] 20 meq PO DAILYCM #30 tab Transmission Status: Pending to [facility] [place] [facility] Primary Care Physician: Wili Dunbar III, MD [Primary Care Provider] - Please follow up with your Primary Care Physician in: 1 week. Test Results: Test results from this visit will be discussed in further detail at your follow-up appointment, if applicable. Please Follow Up With: Kj Diaz (gynecology/oncology) When: [phone] Please Follow Up With: Huy Driver DO When: Friday Proposed Discharge Date: 04/23/19
--- NOTE | 2019-04-13 20:24 | DS.PCM_ITS ---
Discharge Date and Diagnosis - Problem List Patient Problems: Active and Suspected Problems (Last Reviewed 03/17/19 @ 18:28 by Jennifer Crow DO) Debility (Acute) Date of Admission: 03/19/19 Date of Discharge: 04/23/19 - Primary Discharge Diagnosis Active and Suspected Problems (Last Reviewed 03/17/19 @ 18:28 by Jennifer Crow DO) Debility (Acute) - Secondary Discharge Diagnosis Chronic Problems (Last Reviewed 03/17/19 @ 18:28 by Jennifer Crow DO) HTN (hypertension) (Chronic) Diabetes mellitus type 2 in obese (Chronic) GERD (gastroesophageal reflux disease) (Chronic) HLD (hyperlipidemia) (Chronic) Endometrial cancer (Chronic) has had MARYANA/BSO and recently a mass in the vagina was biopsied....path is pending Venous insufficiency of both lower extremities (Chronic) KIMBERLEE (obstructive sleep apnea) (Chronic) not compliant with CPAP Obesity (BMI 30.0-34.9) (Chronic) Lower extremity weakness (Chronic) Frequent falls (Chronic) Osteoarthritis (Chronic) Glaucoma (Chronic) Diverticulosis (Chronic) Mild aortic stenosis (Chronic) Diabetes mellitus (Chronic) Tinea corporis (Chronic) Dizziness (Chronic) Hospital Course and Treatment Imaging Results: 04/07/19 09:29 Diet: Calorie Controlled Is pt able to select menu?: No How many daily calories?: 1800 calorie Labs (Last 48 Hours) 04/11/19 04/12/19 04/12/19 20:55 06:13 10:52 POC Glucose 211 H 224 H 271 H 04/12/19 04/12/19 04/13/19 16:37 21:09 06:11 POC Glucose 147 H 229 H 167 H 04/13/19 04/13/19 11:00 16:53 POC Glucose 151 H 210 H Microbiology 04/12/19 19:22 Mucosa - Nasopharyngeal Respiratory Panel (PCR) - Final Operations: None Procedures: None Summary of Care Provided: The patient is a 78 year old Female with below past medical history hospitalized for left ankle fracture, treated with cast, complicated by electrolyte abnormalities, acute on chronic heart failure with preserved ejection fraction, admitted to TCU with debility, here for rehabilitation, strengthening, prior to discharge home alone. On TCU, resident had bleeding hemorrhoids, Anusol suppositories helpful, Xarelto for DVT prophylaxis stopped. 04/13/2019 Resident had URI symptoms, respiratory panel NEGATIVE, Z-armin prescribed for bronchitis. Discharge home alone, Home Health Care for PT/OT/SN. Patient Problems: Active and Suspected Problems (Last Reviewed 03/17/19 @ 18:28 by Jennifer Crow DO) Debility (Acute) - Physical Exam Vitals/I&O's: Vital Signs Temp Pulse Resp BP Pulse Ox 98.9 F 87 18 120/58 L 97 04/13/19 15:51 04/13/19 15:51 04/13/19 15:51 04/13/19 15:51 04/13/19 15:51 Oxygen Flow Rate (L/min) 95 Oxygen Delivery Method Room Air Weight: 78.245 kg Body Mass Index (BMI) 30.3 Finger Stick Blood Glucose 145 Intake and Output for Last 24 Hours 04/11/19 04/12/19 04/13/19 23:59 23:59 23:59 Intake Total 840 / 840 360 / 360 Balance 840 / 840 360 / 360 Microbiology Past 72 Hours 04/12/19 19:22 Mucosa - Nasopharyngeal Respiratory Panel (PCR) - Final Laboratory Results 04/12/19 21:09: POC Glucose 229 H 04/13/19 06:11: POC Glucose 167 H 04/13/19 11:00: POC Glucose 151 H 04/13/19 16:53: POC Glucose 210 H Current Medications Acetaminophen (Tylenol) 1,000 mg PO Q8 [facility] Last Admin: 04/13/19 13:24 Dose: 1,000 mg Documented by: Alendronate Sodium (Fosamax) 70 mg PO QWEEK@0600 [facility] Last Admin: 04/11/19 06:50 Dose: 70 mg Documented by: Aspirin (Aspirin, Baby) 81 mg PO DAILY@0800 [facility] Last Admin: 04/13/19 07:54 Dose: 81 mg Documented by: Atorvastatin Calcium (Lipitor) 10 mg PO QHS [facility] Last Admin: 04/12/19 21:41 Dose: 10 mg Documented by: Azithromycin (Zithromax) 250 mg PO Q24 [facility] Stop: 04/18/19 10:01 Betamethasone Valerate (Valisone 0.1% Cream) 1 applic TOPICAL BID PRN PRN Reason: rash/itching Bisacodyl (Dulcolax) 10 mg PO DAILY PRN PRN Reason: Constipation Calamine/Phenol (Calmoseptine Ointment) 1 applic TOPICAL 0600,2200 [facility]; Protocol Last Admin: 04/13/19 19:53 Dose: 1 applicatio Documented by: Calcium Carbonate (Os-Jerad 500) 500 mg PO BIDCM [facility] Last Admin: 04/13/19 17:08 Dose: 500 mg Documented by: Cholecalciferol (Vitamin D) 1,000 unit PO BID [facility] Last Admin: 04/13/19 17:08 Dose: 1,000 unit Documented by: Famotidine (Pepcid) 20 mg PO DAILY [facility] Last Admin: 04/13/19 05:20 Dose: 20 mg Documented by: Hydrocortisone Acetate (Anusol Hc) 25 mg RECTAL BID PRN PRN PRN Reason: Hemorrhoids Insulin Glargine (Lantus ([facility])) 20 units SC QHS [facility] Last Admin: 04/12/19 21:42 Dose: 20 units Documented by: Insulin Human Lispro (Humalog Kwikpen ([facility])) 7 unit SC TIDAC [facility] Last Admin: 04/13/19 17:11 Dose: 7 units Documented by: Latanoprost (Xalatan Opthalmic) 1 drop EACH EYE QHS [facility] Last Admin: 04/12/19 21:40 Dose: 1 drop Documented by: Lidocaine/Diphenhydr/Alum/Mg/Simeth () 15 ml PO Q3H PRN PRN PRN Reason: mouth sore Meclizine HCl (Antivert) 25 mg PO TID PRN PRN PRN Reason: Vertigo [facility] Admin: 04/13/19 17:08 Dose: 1,000 mg Documented by: Metoprolol Succinate (Toprol Xl (Beta Eligio)) 100 mg PO 1000,2200 [facility] Last Admin: 04/13/19 10:23 Dose: 100 mg Documented by: Multi-Ingredient Cream (Eucerin) 1 applic TOPICAL QHS [facility]; Protocol Nystatin (Mycostatin) 1 applic TOPICAL 4X/DAY PRN; Protocol PRN Reason: vaginal itching Oxycodone HCl (Oxyir) 5 mg PO Q4H PRN PRN PRN Reason: Pain Score 1-10/10 Last Admin: 04/10/19 05:50 Dose: 5 mg Documented by: Polyethylene Glycol (Miralax) 17 gm PO DAILY [facility] Last Admin: 04/13/19 05:21 Dose: Not Given Documented by: Potassium Chloride (K-Dur) [facility] Admin: 04/13/19 07:54 Dose: 20 meq Documented by: Senna/Docusate Sodium (Senokot-S, Sharyn-Colace) 1 tablet PO BID [facility] Last Admin: 04/13/19 17:08 Dose: Not Given Documented by: Tizanidine HCl (Zanaflex) 2 mg PO Q8H PRN PRN PRN Reason: muscle spasms Discharge Diet: No Restrictions Discharge Activity: Return to Normal Activity, May Shower, Use Walker Weight Bearing Status: No weight bearing - Left lower extremity. Keep extremity elevated above heart level: Left Leg Call your doctor if you observe: Fever of 101 or Higher, Inability to urinate, Inability to have a bowel movement, Shortness of breath, Chest pain, Uncontrolled pain Home Medications: Medications to take at Discharge Aspirin [Aspirin, Baby] 81 mg PO DAILY@0800 04/17/13 Nystatin [Mycostatin] 1 applic TOPICAL 4X/DAY PRN 04/17/13 metFORMIN HCl [Glucophage] 1,000 mg PO BIDCM 04/17/13 atorvastatin 10 mg tablet 10 mg PO QHS 10/15/17 insulin aspart (U-100) 100 unit/mL (3 mL) subcutaneous pen 10 unit SC TIDCM 10/15/17 insulin glargine (U-100) 100 unit/mL subcutaneous solution 30 unit SC QHS 10/15/17 Latanoprost 1 drop EACH EYE QHS 10/30/17 Dulaglutide [Trulicity] 1.5 mg SQ QWEEK 03/16/19 Metoprolol Succinate 100 mg PO BID 03/16/19 Ranitidine [Zantac] 150 mg PO BIDCM 03/16/19 Acetaminophen [Tylenol] 1,000 mg PO Q8 03/19/19 Calcium (Elemental) [Os-Jerad 500] 500 mg PO BIDCM 03/19/19 Cholecalciferol (VIT D3) [Vitamin D3] 1,000 unit PO BID 03/19/19 Meclizine HCl [Antivert] 25 mg PO TID PRN PRN tab 03/19/19 Alendronate Sodium [Fosamax] 70 mg PO QWEEK #4 tab 04/13/19 Menthol/Lanolin/Calamine/Znox [Calmoseptine Ointment] 1 applic TOPICAL 0600,2200 tube 04/13/19 Mineral Oil/Petrolatum,White [Eucerin] 1 applic TOPICAL QHS jar 04/13/19 Potassium Chloride [K-Dur] 20 meq PO DAILYCM #30 tab 04/13/19 Following Prescrptions Were Given to Patient: Alendronate Sodium [Fosamax] 70 mg PO QWEEK #4 tab Transmission Status: Pending to [facility] Potassium Chloride [K-Dur] 20 meq PO DAILYCM #30 tab Transmission Status: Pending to [facility] Primary Care Physician: Wili Dunbar III, MD [Primary Care Provider] - Please follow up with your Primary Care Physician in: 1 week. Please Follow Up With: Kj Diaz (gynecology/oncology) When: [phone] Please Follow Up With: Huy Driver DO When: Friday Disposition: Home with Home Health Minutes spent on discharge:: 35 Patient Condition:: Stable Medical Necessity - Tobacco Use Smoking Status: Former smoker Tobacco Use: Non-smoker Meaningful Use Info Meaningful Use Diagnoses (Choose all that apply): None applicable
--- NOTE | 2019-04-13 20:27 | PCM.PN.HH ---
Home Health Note - Plan Overview of reason of hospitalization: The patient is a 78 year old Female with below past medical history hospitalized for left ankle fracture, treated with cast, complicated by electrolyte abnormalities, acute on chronic heart failure with preserved ejection fraction, admitted to TCU with debility, here for rehabilitation, strengthening, prior to discharge home alone. On TCU, resident had bleeding hemorrhoids, Anusol suppositories helpful, Xarelto for DVT prophylaxis stopped. 04/13/2019 Resident had URI symptoms, respiratory panel NEGATIVE, Z-armin prescribed for bronchitis. Discharge home alone, Home Health Care for PT/OT/SN. Problems: Patient was seen for (Last Reviewed 03/17/19 @ 18:28 by Jennifer Crow DO) Debility (Acute) Diabetes mellitus (Chronic) Tinea corporis (Chronic) Dizziness (Chronic) Complete List of Medical Problems (Last Reviewed 03/17/19 @ 18:28 by Jennifer Crow DO) Personal history of colonic polyps (Acute) Closed left ankle fracture (Acute) Inability to ambulate due to ankle or foot (Acute) HTN (hypertension) (Chronic) Diabetes mellitus type 2 in obese (Chronic) GERD (gastroesophageal reflux disease) (Chronic) HLD (hyperlipidemia) (Chronic) Endometrial cancer (Chronic) Venous insufficiency of both lower extremities (Chronic) KIMBERLEE (obstructive sleep apnea) (Chronic) Obesity (BMI 30.0-34.9) (Chronic) Lower extremity weakness (Chronic) Frequent falls (Chronic) Osteoarthritis (Chronic) Glaucoma (Chronic) Diverticulosis (Chronic) Mild aortic stenosis (Chronic) Urinary tract infection (Acute) Debility (Acute) Diabetes mellitus (Chronic) Tinea corporis (Chronic) Dizziness (Chronic) - Requirements and Reasons Disciplines Needed/Ordered: Senior Living, Physical Therapy Reason for Disciplines: Disease Specific Monitoring/education, Medication Management/Knowledge Deficit, Gait Training, Stair Training, Fall Prevention, Home Safety/Equipment Instruction, Balance and/or Posture Training, Transfer Training Related To: Change in Medical Treatment Plan, Limited/Poor Endurance, Physical Impairments, Unsteady Gait/Balance, Fall Risk Patient is unable to leave the home: Without Aid of Supportive Devices (crutches, cane, wheelchair, walker), Without the assistance of another person, Because it is medically contraindicated Medically Contraindicated related to: Weight Bearing Status - Additional Disciplines Additional Disciplines Needed/Ordered: Occupational Therapy
[2019-04-13 21:36] LABS: Bedside Glucose 223 mg/dL (70-110)
[2019-04-13 21:50] VITALS: BP 189/67; PULSE 90
[2019-04-13] MEDS: Atorvastatin Calcium 10 MG Tablet PO (21:50)
[2019-04-13] MEDS: Latanoprost 0.005% 1 Bottle 1 DRP EACH EYE (21:50)
[2019-04-14] MEDS: Famotidine 20 MG Tablet PO (06:01)
[2019-04-14] MEDS: Acetaminophen 500 MG Tablet 1000 MG PO ×3 (06:01→21:36)
[2019-04-14] MEDS: Menthol/Lanolin/Calamine/Znox 113 GM Tube 1 APPLIC TOPICAL ×2 (06:02→21:42)
[2019-04-14 06:41] LABS: Bedside Glucose 193 mg/dL (70-110)
[2019-04-14] MEDS: Insulin Lispro 100 UNIT/ML INSULN.PEN 7 UNIT SC ×3 (07:52→17:23)
[2019-04-14] MEDS: metFORMIN HCl 1,000 MG Tablet 1000 MG PO ×2 (07:52→17:24)
[2019-04-14] MEDS: Aspirin 81 MG TAB.CHEW PO (07:52)
[2019-04-14] MEDS: Calcium (Elemental) 500 MG Tablet PO ×2 (07:53→17:24)
[2019-04-14 10:15] VITALS: BP 113/48; PULSE 77
[2019-04-14] MEDS: Metoprolol(XL)Succ 100 MG Tablet PO ×2 (10:15→21:36)
[2019-04-14] MEDS: Azithromycin 250 MG Tablet PO (10:15)
[2019-04-14 11:00] LABS: Bedside Glucose 241 mg/dL (70-110)
[2019-04-14 15:14] VITALS: BP 110/51; PULSE 78; RESP 16; TEMP 37.1; O2SAT 96
[2019-04-14 17:06] LABS: Bedside Glucose 134 mg/dL (70-110)
[2019-04-14 21:06] LABS: Bedside Glucose 155 mg/dL (70-110)
[2019-04-14 21:36] VITALS: BP 153/73; PULSE 83
[2019-04-14] MEDS: Atorvastatin Calcium 10 MG Tablet PO (21:36)
[2019-04-14] MEDS: Latanoprost 0.005% 1 Bottle 1 DRP EACH EYE (21:36)
[2019-04-14 21:44] VITALS: O2SAT 98
[2019-04-15 05:41] LABS: Absolute Lymphocyte Count 0.92 X10^3/uL (0.83-4.51); Absolute Neutrophil Count 2.7 X10^3/uL (2.0-7.7); Basophil# 0.04 X10^3/uL; Basophil% 0.8 % (0-1); Eosinophil# 0.17 X10^3/uL; Eosinophils% 3.4 % (0-5); Hematocrit 37.6 % (37-47); Hemoglobin 11.8 g/dL (12.0-15.0); Lymphocyte # 0.92 X10^3/ul (4.0); Lymphocyte % 18.2 % (19-41); Mean Corp Hgb Conc 31.4 g/dL (32-36); Mean Corpuscular Hgb 24.8 pg (27.0-32.0); Mean Platelet Vol. 9.6 fl (6.2-12.0); Monocyte# 1.13 X10^3/uL; Monocyte% 22.3 % (0-10); NRBC Flagged by Analyzer 0 % (0-5); Neutrophil # 2.65 X10^3/uL (2.7-7.7); Neutrophil % 52.3 % (47-70); POSITIVE COUNT YES; Platelet Count 79 K/mm3 (150-450); RBC Distribution Width CV 17.5 % (11.6-14.6); RBC Distribution Width SD 50.1 fl (35.1-43.9); Red Blood Count 4.76 M/mm3 (4.2-5.4); White Blood Count 5.1 K/mm3 (4.4-11.0)
[2019-04-15 06:03] LABS: Anion Gap 9 (5-15); BUN 16 mg/dL (7-18); BUN/Creat Ratio 24.8 RATIO (10-20); Calcium,Total 8.8 mg/dL (8.5-10.1); Chloride 103 mmol/L (98-107); Creatinine, Serum 0.64 mg/dL (0.55-1.02); EST Glomerular Filtration Rate 94 mL/min (>60); Est Glom Filt Rate - Afr Amer 114 mL/min (>60); Estimated Creatinine Clearance 40.38 ml/min; Glucose 204 mg/dL (74-106); Potassium 4.2 mmol/L (3.5-5.1); Sodium Level 137 mmol/L (136-145)
[2019-04-15] MEDS: Famotidine 20 MG Tablet PO (06:09)
[2019-04-15] MEDS: Acetaminophen 500 MG Tablet 1000 MG PO ×3 (06:09→21:11)
[2019-04-15] MEDS: Menthol/Lanolin/Calamine/Znox 113 GM Tube 1 APPLIC TOPICAL ×2 (06:10→21:12)
[2019-04-15 06:31] LABS: Bedside Glucose 208 mg/dL (70-110)
[2019-04-15] MEDS: metFORMIN HCl 1,000 MG Tablet 1000 MG PO ×2 (08:04→17:40)
[2019-04-15] MEDS: Aspirin 81 MG TAB.CHEW PO (08:04)
[2019-04-15] MEDS: Calcium (Elemental) 500 MG Tablet PO ×2 (08:04→17:40)
[2019-04-15] MEDS: Insulin Lispro 100 UNIT/ML INSULN.PEN 7 UNIT SC ×3 (08:05→17:41)
[2019-04-15] MEDS: Azithromycin 250 MG Tablet PO (10:05)
[2019-04-15 10:06] VITALS: BP 125/57; PULSE 80
[2019-04-15] MEDS: Metoprolol(XL)Succ 100 MG Tablet PO ×2 (10:06→21:10)
[2019-04-15 10:41] LABS: Bedside Glucose 311 mg/dL (70-110)
--- NOTE | 2019-04-15 14:10 | CASEMGMT ---
Addendum entered by Juana Moy 04/15/19 14:13: Confirmed with pt she has all necessary DME. Owns 2 FWW, w/c and does not want an extended tub bench. No DME needs. Original Note: Social Work Spoke with pt to f/u on DC plans. Pt stated sister and FRED are coming to stay with pt for several weeks and are leaving [place] 04/20 and it takes [address] [place] FRED is putting the grab bars and finishing the ramp and requesting if pt can DC 04/24. IDT agreeable. Plan: DC 04/24
[2019-04-15 15:18] VITALS: BP 100/50; PULSE 70; RESP 20; TEMP 36.3; O2SAT 98
[2019-04-15 17:05] LABS: Bedside Glucose 195 mg/dL (70-110)
[2019-04-15 20:50] LABS: Bedside Glucose 193 mg/dL (70-110)
[2019-04-15 21:10] VITALS: BP 149/69; PULSE 74
[2019-04-15] MEDS: Atorvastatin Calcium 10 MG Tablet PO (21:10)
[2019-04-15] MEDS: Latanoprost 0.005% 1 Bottle 1 DRP EACH EYE (21:12)
[2019-04-16] MEDS: Menthol/Lanolin/Calamine/Znox 113 GM Tube 1 APPLIC TOPICAL ×2 (06:06→21:32)
[2019-04-16] MEDS: Famotidine 20 MG Tablet PO (06:06)
[2019-04-16] MEDS: Acetaminophen 500 MG Tablet 1000 MG PO ×3 (06:08→21:31)
[2019-04-16 06:31] LABS: Bedside Glucose 224 mg/dL (70-110)
[2019-04-16] MEDS: Insulin Lispro 100 UNIT/ML INSULN.PEN 7 UNIT SC ×3 (08:40→17:39)
[2019-04-16] MEDS: Calcium (Elemental) 500 MG Tablet PO ×2 (08:41→16:36)
[2019-04-16] MEDS: metFORMIN HCl 1,000 MG Tablet 1000 MG PO ×2 (08:41→16:36)
[2019-04-16] MEDS: Aspirin 81 MG TAB.CHEW PO (08:41)
[2019-04-16 08:42] VITALS: BP 124/64; PULSE 80
[2019-04-16] MEDS: Metoprolol(XL)Succ 100 MG Tablet PO ×2 (08:42→21:31)
[2019-04-16] MEDS: Azithromycin 250 MG Tablet PO (08:42)
[2019-04-16 10:46] LABS: Bedside Glucose 222 mg/dL (70-110)
[2019-04-16 15:56] VITALS: BP 131/52; PULSE 78; RESP 16; TEMP 36.6; O2SAT 97
[2019-04-16 16:46] LABS: Bedside Glucose 138 mg/dL (70-110)
[2019-04-16 20:17] VITALS: PULSE 87
[2019-04-16 20:55] LABS: Bedside Glucose 178 mg/dL (70-110)
[2019-04-16 21:31] VITALS: BP 136/67; PULSE 64
[2019-04-16] MEDS: Atorvastatin Calcium 10 MG Tablet PO (21:31)
[2019-04-16] MEDS: Latanoprost 0.005% 1 Bottle 1 DRP EACH EYE (21:32)
[2019-04-17] MEDS: Famotidine 20 MG Tablet PO (06:06)
[2019-04-17] MEDS: Acetaminophen 500 MG Tablet 1000 MG PO ×2 (06:06→13:47)
[2019-04-17] MEDS: Menthol/Lanolin/Calamine/Znox 113 GM Tube 1 APPLIC TOPICAL ×2 (06:08→21:22)
[2019-04-17 06:31] LABS: Bedside Glucose 224 mg/dL (70-110)
[2019-04-17] MEDS: Insulin Lispro 100 UNIT/ML INSULN.PEN 7 UNIT SC ×3 (07:52→17:31)
[2019-04-17] MEDS: metFORMIN HCl 1,000 MG Tablet 1000 MG PO ×2 (07:53→17:32)
[2019-04-17] MEDS: Aspirin 81 MG TAB.CHEW PO (07:53)
[2019-04-17] MEDS: Calcium (Elemental) 500 MG Tablet PO ×2 (07:53→17:32)
[2019-04-17 10:15] VITALS: BP 109/51; PULSE 74
[2019-04-17] MEDS: Metoprolol(XL)Succ 100 MG Tablet PO ×2 (10:15→21:19)
[2019-04-17] MEDS: Azithromycin 250 MG Tablet PO (10:16)
[2019-04-17 10:36] LABS: Bedside Glucose 308 mg/dL (70-110)
[2019-04-17] MEDS: guaiFENesin Dm 10 ML UDC PO ×2 (14:49→21:25)
[2019-04-17 15:20] VITALS: BP 132/50; PULSE 76; RESP 17; TEMP 36.1; O2SAT 95
[2019-04-17 17:00] LABS: Bedside Glucose 194 mg/dL (70-110)
[2019-04-17 21:05] LABS: Bedside Glucose 169 mg/dL (70-110)
[2019-04-17 21:19] VITALS: BP 151/61; PULSE 68
[2019-04-17] MEDS: Atorvastatin Calcium 10 MG Tablet PO (21:19)
[2019-04-17] MEDS: Latanoprost 0.005% 1 Bottle 1 DRP EACH EYE (21:20)
[2019-04-18] MEDS: Acetaminophen 500 MG Tablet 1000 MG PO (00:03)
[2019-04-18] MEDS: Alendronate Sodium 70 MG Tablet PO (06:36)
[2019-04-18] MEDS: Famotidine 20 MG Tablet PO (06:36)
[2019-04-18] MEDS: Menthol/Lanolin/Calamine/Znox 113 GM Tube 1 APPLIC TOPICAL ×2 (06:37→21:27)
[2019-04-18 06:42] VITALS: PULSE 71
[2019-04-18 06:46] LABS: Bedside Glucose 193 mg/dL (70-110)
[2019-04-18] MEDS: Insulin Lispro 100 UNIT/ML INSULN.PEN 7 UNIT SC ×3 (07:45→17:32)
[2019-04-18] MEDS: Calcium (Elemental) 500 MG Tablet PO ×2 (07:46→17:33)
[2019-04-18] MEDS: Aspirin 81 MG TAB.CHEW PO (07:46)
[2019-04-18] MEDS: metFORMIN HCl 1,000 MG Tablet 1000 MG PO ×2 (07:46→17:33)
[2019-04-18] MEDS: Azithromycin 250 MG Tablet PO (10:21)
[2019-04-18 10:24] VITALS: BP 145/57; PULSE 76; RESP 14; O2SAT 98
[2019-04-18 10:26] VITALS: BP 145/57; PULSE 78
[2019-04-18] MEDS: Metoprolol(XL)Succ 100 MG Tablet PO ×2 (10:26→21:26)
[2019-04-18 10:41] LABS: Bedside Glucose 262 mg/dL (70-110)
[2019-04-18] MEDS: guaiFENesin Dm 10 ML UDC PO ×2 (13:29→21:25)
[2019-04-18 15:27] VITALS: BP 164/71; PULSE 82; RESP 17; TEMP 36.9; O2SAT 97
[2019-04-18 16:50] LABS: Bedside Glucose 184 mg/dL (70-110)
[2019-04-18] MEDS: Latanoprost 0.005% 1 Bottle 1 DRP EACH EYE (21:21)
[2019-04-18] MEDS: Atorvastatin Calcium 10 MG Tablet PO (21:25)
[2019-04-18 21:26] VITALS: BP 153/70; PULSE 83
[2019-04-18 21:26] LABS: Bedside Glucose 222 mg/dL (70-110)
[2019-04-19] MEDS: Famotidine 20 MG Tablet PO (05:33)
[2019-04-19] MEDS: Menthol/Lanolin/Calamine/Znox 113 GM Tube 1 APPLIC TOPICAL ×2 (05:37→19:56)
[2019-04-19 07:02] LABS: Bedside Glucose 218 mg/dL (70-110)
[2019-04-19] MEDS: Aspirin 81 MG TAB.CHEW PO (08:01)
[2019-04-19] MEDS: Calcium (Elemental) 500 MG Tablet PO ×2 (08:01→17:47)
[2019-04-19] MEDS: metFORMIN HCl 1,000 MG Tablet 1000 MG PO ×2 (08:01→17:49)
[2019-04-19] MEDS: Insulin Lispro 100 UNIT/ML INSULN.PEN 7 UNIT SC ×3 (08:01→17:50)
[2019-04-19 10:48] VITALS: BP 138/64; PULSE 88
[2019-04-19] MEDS: Metoprolol(XL)Succ 100 MG Tablet PO ×2 (10:48→21:10)
[2019-04-19 11:35] LABS: Bedside Glucose 215 mg/dL (70-110)
[2019-04-19 15:41] VITALS: BP 123/51; PULSE 78; RESP 16; TEMP 36.8; O2SAT 98
[2019-04-19 17:01] LABS: Bedside Glucose 194 mg/dL (70-110)
[2019-04-19] MEDS: Atorvastatin Calcium 10 MG Tablet PO (21:08)
[2019-04-19 21:10] VITALS: BP 169/67; PULSE 82
[2019-04-19] MEDS: Latanoprost 0.005% 1 Bottle 1 DRP EACH EYE (21:10)
[2019-04-19] MEDS: guaiFENesin Dm 10 ML UDC PO (21:19)
[2019-04-19 21:21] LABS: Bedside Glucose 179 mg/dL (70-110)
[2019-04-20] MEDS: Menthol/Lanolin/Calamine/Znox 113 GM Tube 1 APPLIC TOPICAL ×2 (05:10→20:49)
[2019-04-20] MEDS: Famotidine 20 MG Tablet PO (05:10)
[2019-04-20 06:41] LABS: Bedside Glucose 245 mg/dL (70-110)
[2019-04-20] MEDS: Insulin Lispro 100 UNIT/ML INSULN.PEN 7 UNIT SC ×3 (07:48→17:54)
[2019-04-20] MEDS: Aspirin 81 MG TAB.CHEW PO (07:50)
[2019-04-20] MEDS: metFORMIN HCl 1,000 MG Tablet 1000 MG PO ×2 (07:51→17:55)
[2019-04-20] MEDS: Calcium (Elemental) 500 MG Tablet PO ×2 (07:51→17:56)
[2019-04-20 11:06] VITALS: PULSE 72
[2019-04-20 11:06] LABS: Bedside Glucose 300 mg/dL (70-110)
[2019-04-20] MEDS: Metoprolol(XL)Succ 100 MG Tablet PO ×2 (11:06→20:48)
[2019-04-20 15:18] VITALS: BP 115/46; PULSE 75; RESP 20; TEMP 36.1; O2SAT 98
[2019-04-20 16:56] LABS: Bedside Glucose 148 mg/dL (70-110)
[2019-04-20 20:48] VITALS: BP 161/62; PULSE 86
[2019-04-20] MEDS: Atorvastatin Calcium 10 MG Tablet PO (20:48)
[2019-04-20] MEDS: Latanoprost 0.005% 1 Bottle 1 DRP EACH EYE (20:48)
[2019-04-20 21:45] LABS: Bedside Glucose 178 mg/dL (70-110)
[2019-04-20] MEDS: guaiFENesin Dm 10 ML UDC PO (22:24)
[2019-04-21] MEDS: Menthol/Lanolin/Calamine/Znox 113 GM Tube 1 APPLIC TOPICAL ×2 (06:21→21:25)
[2019-04-21] MEDS: Famotidine 20 MG Tablet PO (06:21)
[2019-04-21 06:31] LABS: Bedside Glucose 204 mg/dL (70-110)
[2019-04-21] MEDS: Aspirin 81 MG TAB.CHEW PO (08:08)
[2019-04-21] MEDS: Insulin Lispro 100 UNIT/ML INSULN.PEN 7 UNIT SC ×3 (08:08→17:25)
[2019-04-21] MEDS: metFORMIN HCl 1,000 MG Tablet 1000 MG PO ×2 (08:09→17:26)
[2019-04-21] MEDS: Calcium (Elemental) 500 MG Tablet PO ×2 (08:09→17:26)
[2019-04-21 10:32] VITALS: BP 132/62; PULSE 77
[2019-04-21] MEDS: Metoprolol(XL)Succ 100 MG Tablet PO ×2 (10:32→21:23)
[2019-04-21 10:36] VITALS: RESP 16
[2019-04-21 11:20] LABS: Bedside Glucose 256 mg/dL (70-110)
[2019-04-21 15:23] VITALS: BP 114/52; PULSE 76; RESP 20; TEMP 36.3; O2SAT 95
[2019-04-21 16:50] LABS: Bedside Glucose 125 mg/dL (70-110)
[2019-04-21 21:06] LABS: Bedside Glucose 195 mg/dL (70-110)
[2019-04-21 21:23] VITALS: BP 146/59; PULSE 69
[2019-04-21] MEDS: Atorvastatin Calcium 10 MG Tablet PO (21:23)
[2019-04-21] MEDS: Latanoprost 0.005% 1 Bottle 1 DRP EACH EYE (21:23)
[2019-04-22 06:26] LABS: Bedside Glucose 213 mg/dL (70-110)
[2019-04-22] MEDS: Famotidine 20 MG Tablet PO (06:46)
[2019-04-22] MEDS: Menthol/Lanolin/Calamine/Znox 113 GM Tube 1 APPLIC TOPICAL ×2 (06:47→21:22)
[2019-04-22] MEDS: Insulin Lispro 100 UNIT/ML INSULN.PEN 7 UNIT SC ×3 (08:29→17:10)
[2019-04-22] MEDS: Aspirin 81 MG TAB.CHEW PO (08:30)
[2019-04-22] MEDS: metFORMIN HCl 1,000 MG Tablet 1000 MG PO ×2 (08:31→17:10)
[2019-04-22] MEDS: Calcium (Elemental) 500 MG Tablet PO ×2 (08:31→17:11)
[2019-04-22 10:27] VITALS: BP 113/46; PULSE 74
[2019-04-22] MEDS: Metoprolol(XL)Succ 100 MG Tablet PO ×2 (10:27→21:18)
[2019-04-22 10:51] LABS: Bedside Glucose 199 mg/dL (70-110)
--- NOTE | 2019-04-22 14:24 | MDS.RN ---
Pain interview for yolanda 04/24/19 completed
[2019-04-22 16:00] VITALS: BP 133/50; PULSE 77; RESP 16; TEMP 36.8; O2SAT 97
[2019-04-22 16:51] LABS: Bedside Glucose 126 mg/dL (70-110)
[2019-04-22] MEDS: Latanoprost 0.005% 1 Bottle 1 DRP EACH EYE (21:17)
[2019-04-22] MEDS: Atorvastatin Calcium 10 MG Tablet PO (21:17)
[2019-04-22 21:18] VITALS: BP 146/68; PULSE 81
[2019-04-22 21:21] LABS: Bedside Glucose 214 mg/dL (70-110)
[2019-04-23] MEDS: Famotidine 20 MG Tablet PO (06:17)
[2019-04-23] MEDS: Menthol/Lanolin/Calamine/Znox 113 GM Tube 1 APPLIC TOPICAL ×2 (06:18→22:03)
[2019-04-23 06:35] LABS: Bedside Glucose 208 mg/dL (70-110)
[2019-04-23] MEDS: metFORMIN HCl 1,000 MG Tablet 1000 MG PO ×2 (07:53→17:45)
[2019-04-23] MEDS: Calcium (Elemental) 500 MG Tablet PO ×2 (07:53→17:45)
[2019-04-23] MEDS: Insulin Lispro 100 UNIT/ML INSULN.PEN 7 UNIT SC ×2 (07:53→12:11)
[2019-04-23] MEDS: Aspirin 81 MG TAB.CHEW PO (07:53)
[2019-04-23 10:31] LABS: Bedside Glucose 299 mg/dL (70-110)
[2019-04-23 11:25] VITALS: BP 125/56; PULSE 68
[2019-04-23] MEDS: Metoprolol(XL)Succ 100 MG Tablet PO ×2 (11:25→21:55)
[2019-04-23 16:00] VITALS: BP 122/58; PULSE 78; RESP 18; TEMP 36.6; O2SAT 96
[2019-04-23 17:00] LABS: Bedside Glucose 255 mg/dL (70-110)
--- NOTE | 2019-04-23 17:04 | CASEMGMT ---
Social Work BIMS and PHQ-9 completed for MDS assessment. Juana Moy, CUSTOMER ORDER CLERK MACHINE GRINDER
[2019-04-23] MEDS: Insulin Lispro 100 UNIT/ML INSULN.PEN 8 UNIT SC (17:46)
[2019-04-23 20:51] LABS: Bedside Glucose 250 mg/dL (70-110)
--- NOTE | 2019-04-23 21:25 | PCA ---
Patient refused all pm care tonight, patient states will get washed up in the morning. Patient is in a clean gown.
[2019-04-23 21:55] VITALS: BP 161/63; PULSE 80
[2019-04-23] MEDS: Latanoprost 0.005% 1 Bottle 1 DRP EACH EYE (21:55)
[2019-04-23] MEDS: Atorvastatin Calcium 10 MG Tablet PO (21:55)
[2019-04-24] MEDS: Acetaminophen 500 MG Tablet 1000 MG PO (00:10)
[2019-04-24] MEDS: Famotidine 20 MG Tablet PO (06:27)
[2019-04-24] MEDS: Menthol/Lanolin/Calamine/Znox 113 GM Tube 1 APPLIC TOPICAL (06:27)
[2019-04-24 06:55] LABS: Bedside Glucose 187 mg/dL (70-110)
[2019-04-24] MEDS: Aspirin 81 MG TAB.CHEW PO (08:04)
[2019-04-24] MEDS: Insulin Lispro 100 UNIT/ML INSULN.PEN 8 UNIT SC (08:04)
[2019-04-24] MEDS: Calcium (Elemental) 500 MG Tablet PO (08:04)
[2019-04-24] MEDS: metFORMIN HCl 1,000 MG Tablet 1000 MG PO (08:04)
[2019-04-24 09:42] VITALS: BP 113/51; PULSE 76
[2019-04-24] MEDS: Metoprolol(XL)Succ 100 MG Tablet PO (09:42)
[2019-04-24 11:46] LABS: Bedside Glucose 195 mg/dL (70-110)
[2019-04-24 16:12] VITALS: BP 120/62; PULSE 80; RESP 16; TEMP 36.7; O2SAT 97
== END 2019-04-24 11:30 | disposition home health service (06) | DRG 559 ==
PROVIDERS: Admitting Provider Family Medicine Geriatric Medicine; Family Provider Family Medicine; PCP Family Medicine; Referring Provider Family Medicine Geriatric Medicine; Visit Provider Family Medicine Geriatric Medicine
DX: S82.52XD Displaced fracture of medial malleolus of left tibia, subsequent encounter for closed fracture with routine healing (principal); I50.33 Acute on chronic diastolic (congestive) heart failure; Z23 Encounter for immunization; W19.XXXD Unspecified fall, subsequent encounter; E78.5 Hyperlipidemia, unspecified; G47.33 Obstructive sleep apnea (adult) (pediatric); M19.90 Unspecified osteoarthritis, unspecified site; K21.9 Gastro-esophageal reflux disease without esophagitis; E11.9 Type 2 diabetes mellitus without complications; B35.4 Tinea corporis; I11.0 Hypertensive heart disease with heart failure; H40.9 Unspecified glaucoma; Z87.891 Personal history of nicotine dependence; Z91.19 Patient's noncompliance with other medical treatment and regimen; R29.6 Repeated falls; F41.9 Anxiety disorder, unspecified; E87.6 Hypokalemia; J40 Bronchitis, not specified as acute or chronic
CPT/HCPCS: 36415; 73610; 80048; 82306; 82962; 85025; 87633; 97110; 97116; 97161; 97166; 97530; 97535; 97802; G0008; 90686

== ENCOUNTER → 2019-03-29 13:35 | Outpatient (CLI) | payer MEDICARE, OTHER, SELFPAY ==
[2019-03-19 15:19] VITALS: BMI 30.3
--- NOTE | 2019-03-29 13:36 | RAD_ITS ---
STUDY: X-RAY - LEFT ANKLE REASON FOR EXAM: Female, 78 years old. Lateral pain after fall. TECHNIQUE: 3 view(s) of the ankle. COMPARISON: None. FINDINGS: There is a minimally displaced oblique fracture through the distal fibula diametaphysis. Question small avulsion fracture off the tip of the medial malleolus. Normal tibiotalar articulation and ankle mortise. Normal visualized talus and calcaneus. The visualized subtalar, talonavicular, calcaneocuboid and tarsal articulations are normal. Diffuse soft tissue swelling. RAD/Ankle min 3 Views IMPRESSION: 1. No fracture of the distal fibula. 2. Question small avulsion fracture off the tip of the medial malleolus. Electronically Signed: Mark Kim DO at 23:44 EDT Tel [phone], Service support ,
== END ==
PROVIDERS: Family Provider Family Medicine; PCP Family Medicine; Referring Provider Orthopaedic Surgery; Visit Provider Orthopaedic Surgery
DX: S82.892A Other fracture of left lower leg, initial encounter for closed fracture (principal); X58.XXXA Exposure to other specified factors, initial encounter; Y93.9 Activity, unspecified; Y92.9 Unspecified place or not applicable; Y99.9 Unspecified external cause status
CPT/HCPCS: 73610

== ENCOUNTER → 2019-04-26 13:32 | Outpatient (CLI) | payer MEDICARE, OTHER, SELFPAY ==
[2019-04-26 13:27] VITALS: BMI 30.3
--- NOTE | 2019-04-26 13:34 | RAD_ITS ---
STUDY: X-RAY - LEFT ANKLE REASON FOR EXAM: Female, 78 years old. Post cast removal. TECHNIQUE: 3 view(s) of the ankle. COMPARISON: 03/29/2019. FINDINGS: There is diffuse osteopenia. Redemonstrated is oblique fracture involving the distal fibula with partial healing. Otherwise normal Visualized distal tibia and fibula. Normal medial and lateral malleoli. Normal tibiotalar articulation and ankle mortise. Enthesophyte at the Achilles tendon insertion site, otherwise normal visualized talus and calcaneus. The visualized subtalar, talonavicular, calcaneocuboid and tarsal articulations are normal. There is mild soft tissue swelling surrounding the ankle. RAD/Ankle min 3 Views IMPRESSION: Healing fracture of the distal fibula as described above. Diffuse osteopenia. Electronically Signed: Sophy Castillo MD at 2:18 EST , Service support ,
== END ==
PROVIDERS: Family Provider Family Medicine; PCP Family Medicine; Referring Provider Orthopaedic Surgery; Visit Provider Orthopaedic Surgery
DX: S82.61XA Displaced fracture of lateral malleolus of right fibula, initial encounter for closed fracture (principal); X58.XXXA Exposure to other specified factors, initial encounter; Y93.9 Activity, unspecified; Y92.9 Unspecified place or not applicable; Y99.9 Unspecified external cause status
CPT/HCPCS: 73610

== ENCOUNTER → 2019-05-10 10:32 | Outpatient (CLI) | payer MEDICARE, OTHER, SELFPAY ==
[2019-04-26 13:27] VITALS: BMI 30.3
--- NOTE | 2019-05-10 10:34 | RAD_ITS ---
STUDY: X-RAY - LEFT ANKLE REASON FOR EXAM: Female, 78 years old. Pain. TECHNIQUE: 3 view(s) of the ankle. COMPARISON: Left foot, May 10, 2018. Left ankle, April 26, 2019. FINDINGS: Then seen is a fracture of the distal the fibula which is unchanged in alignment from previous study. Medial malleolus appears intact. Normal tibiotalar articulation and ankle mortise. Normal visualized talus and calcaneus. The visualized subtalar, talonavicular, calcaneocuboid and tarsal articulations are normal. Is continued soft tissue swelling. RAD/Ankle min 3 Views IMPRESSION: 1. Fracture of the distal fibula unchanged from the previous study. Persistent soft tissue swelling the ankle. Electronically Signed: Mark Kim DO at 17:49 EST Tel [phone], Service support ,
--- NOTE | 2019-05-10 10:55 | RAD_ITS ---
STUDY: X-RAY - LEFT FOOT CLINICAL: Female, 78 years old. Pain. TECHNIQUE: 3 view(s) of the foot. COMPARISON: Left ankle, May 10, 2019. FINDINGS: Normal talus, calcaneus, and tarsal bones. There is a fracture of the lateral malleolus. There is a questionable fracture of the medial malleolus. Normal visualized subtalar, talonavicular, calcaneocuboid, tarsal and tarsometatarsal articulations. Normal metatarsi. Normal metatarsophalangeal joint of the great toe. Normal tibial and fibular sesamoid bones. Normal interphalangeal joint of the great toe. Normal phalanges of the great toe. Normal second through fifth metatarsophalangeal joints. There appears to be fractures through the base of the third proximal phalanx otherwise normal interphalangeal joints and phalanges of the lesser toes. Robert soft tissue swelling about the ankle. RAD/Foot min 3 Views IMPRESSION: 1. Soft tissue swelling about the ankle. There is a fracture of the lateral malleolus and questionable fracture medial malleolus. Please refer to the ankle film for further evaluation. 2. Questionable fracture of the base of the third proximal phalanx. Electronically Signed: Mark Kim DO at 17:48 EST Tel [phone], Service support ,
== END ==
PROVIDERS: Family Provider Family Medicine; PCP Family Medicine; Referring Provider Orthopaedic Surgery; Visit Provider Orthopaedic Surgery
DX: S82.892A Other fracture of left lower leg, initial encounter for closed fracture (principal); M79.673 Pain in unspecified foot; X58.XXXA Exposure to other specified factors, initial encounter; Y93.9 Activity, unspecified; Y92.9 Unspecified place or not applicable; Y99.9 Unspecified external cause status
CPT/HCPCS: 73610; 73630

== ENCOUNTER → 2019-06-28 10:37 | Outpatient (CLI) | payer MEDICARE, OTHER, SELFPAY ==
[2019-06-28 07:54] VITALS: BMI 30.3
--- NOTE | 2019-06-28 10:37 | RAD_ITS ---
HISTORY: FRACTURE ADDITIONAL HISTORY: None provided. TECHNIQUE: Left ankle 3 views Number of images including paperwork: 3 COMPARISON: 05/10/2019, 03/29/2019, 03/16/2019 FINDINGS: BONES: Obliquely oriented, minimally displaced fracture of the left distal fibula with some interval callus formation. Ossific density noted about the medial malleolus, less well-defined when compared with previous studies suggestive of healing of previous medial malleolus avulsion fracture. No other definite fracture. Mineralization appears decreased. JOINTS: No subluxation. SOFT TISSUES: No distinct foreign body. Soft tissue swelling has increased. RAD/Ankle min 3 Views IMPRESSION: Healing left distal fibula and medial malleolus fractures. Soft tissue swelling around the ankle has increased. at 2312 Reported and signed by: Kianna Rick MD Electronically Signed: Kianna Rick MD at 23:12 EST Tel , Service support ,
== END ==
PROVIDERS: PCP Family Medicine; Referring Provider Orthopaedic Surgery; Visit Provider Orthopaedic Surgery
DX: M25.572 Pain in left ankle and joints of left foot (principal); S82.52XD Displaced fracture of medial malleolus of left tibia, subsequent encounter for closed fracture with routine healing; X58.XXXD Exposure to other specified factors, subsequent encounter
CPT/HCPCS: 73610

== ENCOUNTER → 2019-06-28 13:24 | Outpatient (CLI) | payer MEDICARE, OTHER, SELFPAY ==
[2019-06-28 07:54] VITALS: BMI 30.3
--- NOTE | 2019-06-28 13:27 | VDLE_ITS ---
Reason For Study: LLE pain/edema RIGHT LEFT CFV is compressible, spontaneous, phasic, GSV is normal. competent and demonstrates normal CFV is compressible, spontaneous, phasic, augmentation. competent, and demonstrates normal Procedure augmentation. Exam performed in department. FV is compressible, spontaneous, phasic, The exam was diagnostic. competent and demonstrates normal A preliminary report was called and/or faxed augmentation. to Dr. Driver @ [phone] @ 2 pm. POP V is compressible, spontaneous, phasic, competent and demonstrates normal augmentation. T/P Trunk is compressible. PTV is compressible. LT PerV is compressible. Interpretation Summary There is no evidence of left lower extremity deep vein thrombosis. Left great saphenous vein appears patent and compressible segmentally. Patent and compressible right common femoral vein Ordering Physician: Huy Driver Referring Physician: Wili Dunbar Performed By: Pamela Farias, KEENAN, RVT
== END ==
PROVIDERS: PCP Family Medicine; Referring Provider Orthopaedic Surgery; Visit Provider Orthopaedic Surgery
DX: M79.662 Pain in left lower leg (principal); R60.0 Localized edema; M25.572 Pain in left ankle and joints of left foot; S82.52XD Displaced fracture of medial malleolus of left tibia, subsequent encounter for closed fracture with routine healing; X58.XXXD Exposure to other specified factors, subsequent encounter
CPT/HCPCS: 73610; 93971

== ENCOUNTER 2019-08-03 15:00 | Outpatient (RCR) | payer MEDICARE, OTHER, SELFPAY ==
[2019-06-28 07:54] VITALS: BMI 30.3
--- NOTE | 2019-07-01 13:56 | HP.PTEVAL ---
Patient's Visit Information NOELLE DIXON is a 79 year old F referred to Physical Therapy by Huy Driver DO with a diagnosis of L ankle fracture, LE weakness.. Date of Evaluation: 07/01/19 Physical Therapist: YRN MaeT, OCS, CSCS - Visit Plan Frequency: 3x /Week Duration: 4-6 Weeks Plan: 3x/week for 3-6 weeks for... 1, manual to consist of L LE lymphatic massage and L ankle mobs for inv/df, ankle distraction. 2. Strenghening of L ankle, B LE and gait training without wh walker. Pt to use wh walker at home for safety. - Subjective Findings: Broke L ankle falling in March losing balance which is unusual for her. Ambulance took her to the hospital at that time. Dr. Zepeda put her in a cast and then another one 3 weeks later. Was in TCU for 3 weeks. Home 04/[address] Ackerman put her in a boot. Went to [facility] as no one could stay with her. Did not need walker prior to fall but has used wh walker since. Nothing else hurt. Has DM but no known neuroapthy. Now is back at home by herself , no cast. using wh walker adn has WC that she uses when she gets tired. Dresses self. shower and shower seat herself. Has [facility] commode. Cooking meals. Been to grocery stroe adn uses wh walker. Balance is lost now and then. Feels weak in that she has to rest alot and harder time moving around. Would love to get rid of walker. L leg stays swollen and had US and no bood clots, that was 3 days ago. - Objective R knee hurts with OA. Unable to get compression socks on but wears sock with compression in them. Walks with wh walker mod I slow and slight avoidance of L push off. L lower leg is swollen and tight and tender to the touch with edema. L AROM ankle 0 DF, 10 inv(painful), 20 eversion adn 50 PF, R ankle 3, 23, 22, 55. L ankle strength 4-/5 without pain, R ankle 4/5. Knees adn hips move well although R knee is painful with ext and 4-/5 strength. Sensation LE WNL to gross light touch. Coordination to reciprocal tap is fair. Trasnfer out of chair reuqires UE, No steps at home as she has a ramp so we avodied steps today. gait without walker is wide ROBEL adn slow and distrusting. Painful in R knee and stressed. Unabe to tolerate FGA but was able to stand without assistance for balance with fair balance. - Goals Goal 1:: Full ankle AROM without pain to aid in walking Goal Time Frame: 4-6 Weeks Goal 2:: L LE edema managed to avoid tenderness and improve health of tissue. Goal Time Frame: 4-6 Weeks Goal 3:: walk without AD one lap HP without pain or LOB Goal Time Frame: 4-6 Weeks Goal 4:: FGA tolerated well. Goal Time Frame: 4-6 Weeks Goal 5:: Pt feel 75% back to normal stamina. Goal Time Frame: 4-6 Weeks - Rehabilitation Potential Physical Therapy Diagnosis: L ankel fracture, LE weakness adn mobility deficits. Rehabilitation Potential: Fair - Anticipated Interventions Patient/Client Instruction: Educate patient on: Condition, Plan of Care For the Purpose of:: To decrease swelling/inflammation, To increase ROM, To improve muscle performance and motor function, To increase tolerance to activity/condition/position, To improve gait and locomotor functions Therapeutic Exercise to Include: Strength training, Endurance training, Flexibilty training, Gait and locomotor training, Neuromotor development, Passive ROM, Active ROM For the Purpose of:: To increase ROM, To improve nutrient delivery to tissue, To improve muscle performance and motor function, To increase tolerance to activity/condition/position, To improve ability of physical actions for home/community/work/leisure Manual Therapy Techniques to Include: Manual lymph drainage, Mobilization For the Purpose of:: To decrease swelling/inflammation, To increase ROM, To improve muscle performance and motor function Thermo therapy (hot pack): Yes For the Purpose of:: To improve nutrient delivery to tissue Thank you for the opportunity to evaluate your patient. For Medicare and Medicare HMO plans, please review the plan of care and approve it. It will need to be FAXED BACK to us at [phone] for Medicare purposes. For Medicare only, by signing this I certify the plan of care. Please let me know if there are questions or concerns regarding this plan of care. Physician Signature: Date:
--- NOTE | 2019-08-03 15:17 | HP.PTDCSUM ---
HP - PT D/C Summary It has been my pleasure to treat NOELLE DIXON under orders from Huy Driver DO, for the diagnosis of L ankle fracture, LE weakness. for a total of 11 visit(s). Discharge Date: 08/03/19 Please see the following information for a summary of their discharge status. - Subjective Subjective: Getting around pretty good. Pain is mostly soreness in the evenings. Sleeping good. Using wh walker to get in today. Walks at home without it. Feels safe without it. Did laundry yesterday. Feels like she could get outside if the weather tolerates. Feels like she is able to continue at home. - Pain R knee Pain Intensity (Out of 10): 8 L ankle Pain Intensity (Out of 10): 0 - Overall Improvement % Improvement: 80 - Objective Objective/Function: 0 DF, 20 inv, 12 eversion and WFL PF. Strength is 4/5. Walks well with wh walker normally and slow but steady without AD. steps are step to with either foot, L stronger than R. Wants to be done with PT and doing well enough to consider it. - Goals Goal 1:: Full ankle AROM without pain to aid in walking Goal Progress: Progressing Goal 2:: L LE edema managed to avoid tenderness and improve health of tissue. Goal Progress: Progressing Goal 3:: walk without AD one lap HP without pain or LOB Goal Progress: Goal Met Goal 4:: FGA tolerated well. Goal Progress: Progressing Goal 5:: Pt feel 75% back to normal stamina. Goal Progress: Goal Met - Plan Plan: d/c - D/C Information If there are questions or concerns regarding this patient's physical therapy, please feel free to call me at [phone]. Thank you for the referral of this patient. Sincerely, Rafael Brown, DPT, OCS, CSCS
== END 2019-08-03 19:00 | disposition home or self-care (01) ==
LOC: PT 15:00
PROVIDERS: PCP Family Medicine; Referring Provider Orthopaedic Surgery; Visit Provider Orthopaedic Surgery
DX: S82.892D Other fracture of left lower leg, subsequent encounter for closed fracture with routine healing (principal); R29.898 Other symptoms and signs involving the musculoskeletal system
CPT/HCPCS: 97110; 97116; 97140; 97161; 97164

== ENCOUNTER 2019-08-13 20:42 | Emergency (ER) | payer MEDICARE, OTHER, SELFPAY ==
[2019-06-28 07:54] VITALS: BMI 30.3
[2019-08-13 20:43] VITALS: BP 190/76; TEMP 36.7; BMI 29.0
--- NOTE | 2019-08-13 20:49 | EKG12_ITS ---
Test Reason : CP Blood Pressure : / mmHG Vent. Rate : 083 BPM Atrial Rate : 083 BPM P-R Int : 174 ms QRS Dur : 078 ms QT Int : 380 ms P-R-T Axes : 069 039 061 degrees QTc Int : 446 ms Normal sinus rhythm Septal infarct , age undetermined Abnormal ECG Confirmed by MERCEDEZ LATHAM, MACO ([id number]), magazine editor DALTON MACARIO ([id number]) on 08/16/2019 3:31:50 PM Referred By: MINERVA Confirmed By:MACO NEWSOME MD
--- NOTE | 2019-08-13 20:52 | RAD_ITS ---
HISTORY: chest pain that started this afternoon. EXAM: XR Chest 1 View COMPARISON: April 17, 2013 FINDINGS: LINES/DEVICES: None. LUNGS: There are chronic interstitial changes. No pneumothorax. No consolidation or effusion. MEDIASTINUM AND CARDIOVASCULAR STRUCTURES: Cardiac silhouette not enlarged. Central airways and mediastinal contour are unremarkable. Athersclerotic plaque within the aortic arch. BONES AND SOFT TISSUES: Thoracic spondylosis. RAD/Chest 1 View (Portable) IMPRESSION: Chronic interestitial changes. No radiographic evidence of acute cardiopulmonary disease. at 2137 Reported and signed by: Wilbert Motta MD Electronically Signed: Wilbert Motta MD at 21:36 EST Tel , Service support ,
[2019-08-13 21:07] LABS: Absolute Lymphocyte Count 0.62 X10^3/uL (0.83-4.51); Absolute Neutrophil Count 3.2 X10^3/uL (2.0-7.7); Basophil# 0.03 X10^3/uL; Basophil% 0.6 % (0-1); Eosinophil# 0.04 X10^3/uL; Eosinophils% 0.9 % (0-5); Hematocrit 40.2 % (37-47); Lymphocyte # 0.62 X10^3/ul (4.0); Lymphocyte % 13.2 % (19-41); Mean Corp Hgb Conc 29.9 g/dL (32-36); Mean Corpuscular Volume 73.8 fL (81-99); Mean Platelet Vol. 9.3 fl (6.2-12.0); Monocyte% 12.8 % (0-10); NRBC Flagged by Analyzer 0 % (0-5); Neutrophil % 68.4 % (47-70); POSITIVE COUNT YES; Platelet Count 76 K/mm3 (150-450); RBC Distribution Width CV 18.8 % (11.6-14.6); Red Blood Count 5.45 M/mm3 (4.2-5.4); White Blood Count 4.7 K/mm3 (4.4-11.0)
[2019-08-13 21:10] LABS: Prothrombin Time (Protime)PT. 13.1 SECONDS (11.7-14.9)
[2019-08-13 21:11] LABS: Differential Indicated SCAN CRITERIA MET
[2019-08-13 21:26] LABS: Anion Gap 3 (5-15); BUN 12 mg/dL (7-18); BUN/Creat Ratio 13.5 RATIO (10-20); Calcium,Total 9.6 mg/dL (8.5-10.1); Chloride 102 mmol/L (98-107); Creatinine, Serum 0.89 mg/dL (0.55-1.02); EST Glomerular Filtration Rate 65 mL/min (>60); Est Glom Filt Rate - Afr Amer 79 mL/min (>60); Estimated Creatinine Clearance 44.61 ml/min; Glucose 296 mg/dL (74-106); Sodium Level 134 mmol/L (136-145)
[2019-08-13 21:33] LABS: Anisocytosis RARE; Microcytosis RARE; Platelet Estimate MOD DEC (ADEQ); Red Cell Morphology N CHROM NORMAL (NORM C&C)
[2019-08-13] MEDS: Mag Hydrox/Al Hydrox/Simeth 30 ML UDC PO (21:39)
[2019-08-13] MEDS: Aspirin 81 MG TAB.CHEW 324 MG PO (21:40)
[2019-08-13 21:43] VITALS: BP 183/61; PULSE 81; RESP 20; O2SAT 98
--- NOTE | 2019-08-13 22:50 | ED.VISSUMM ---
- ER Visit Summary Date of Service: 08/13/19 Chief Complaint: Chest pain History of Present Illness: The patient is a 79 F who presents with chest pain that began approximately 6 hours prior to arrival. Patient states this began after eating lunch today. Patient describes her pain is dull. Patient states the pain is across her chest and in the epigastric area. Patient states the pain is worse over the epigastric area. Patient admits to some nausea and vomiting. Patient denies any shortness of breath but admits to a slight cough. Patient denies any fevers or chills. Physical Examination: Vital signs are stable. Patient is afebrile. Patient is in no acute distress. Oral mucosa is pink and moist. Neck is supple. Trachea is midline. There is no JVD. Heart was regular rate and rhythm. Lungs were clear and equal bilaterally. Abdomen is soft. Bowel sounds are normal. There is some mild tenderness in the epigastric area. There is no rebound or guarding noted. Cranial nerves II through XII are intact. There are no focal motor or sensory deficits noted. Test Results: EKG showed normal sinus rhythm with a rate of 83. There are no acute ST or T wave changes. This was unchanged compared to previous EKG dated 03/16/2019. CBC shows a mild thrombocytopenia of 76. Basic metabolic profile was essentially within normal limits with the exception of a slightly elevated glucose of 296. INR is 1.0. Troponin is less than 0.015. Portable chest x-ray was obtained. There are chronic changes but no acute cardiopulmonary process. This is interpreted by the radiologist and myself. Emergency Department Course and Treatment: Patient was given a GI cocktail here. Patient felt better after this. Patient states her pain was starting to come back in the epigastric area however. Patient was given upper dose of Protonix here. Patient was given a prescription for Prilosec. Patient was instructed to follow-up with her primary care physician in 3 to 5 days. Patient was instructed to return if worse in any way. Patient understood and was agreeable with the plan. All questions were answered. Disposition: Discharge home Impression: Epigastric pain This note was generated with [employer] dictation software. It may contain incorrect words, spelling, and punctuation that were not noted in review of the chart prior to signing ED Disposition - Plan for ED Patient: Disposition: Home or Assisted Living Diagnosis: Epigastric abdominal pain of unknown etiology Instructions: EPIGASTRIC PAIN (Uncertain cause) Prescriptions: Omeprazole [Prilosec] 20 mg PO DAILY #30 cap Prescription Printed Referrals: Wili Dunbar III, MD [Primary Care Provider] - 3-5 Days
[2019-08-13] MEDS: Pantoprazole Sodium 20 MG Tablet PO (23:06)
[2019-08-13 23:07] VITALS: BP 185/63; PULSE 82; RESP 18; O2SAT 98
== END 2019-08-13 23:09 | disposition home or self-care (01) ==
PROVIDERS: Emergency Provider Emergency Medicine; PCP Family Medicine
DX: R10.13 Epigastric pain (principal); E11.65 Type 2 diabetes mellitus with hyperglycemia; I10 Essential (primary) hypertension; R11.2 Nausea with vomiting, unspecified; R30.0 Dysuria; R05 Cough; D69.6 Thrombocytopenia, unspecified; F41.9 Anxiety disorder, unspecified; Z79.82 Long term (current) use of aspirin; Z79.4 Long term (current) use of insulin; Z79.899 Other long term (current) drug therapy; Z85.42 Personal history of malignant neoplasm of other parts of uterus
CPT/HCPCS: 71045; 80048; 84484; 85025; 85610; 93005; 99285

== ENCOUNTER 2019-08-14 16:19 | Inpatient (IN) | payer MEDICARE, OTHER, SELFPAY ==
[2019-08-13 20:43] VITALS: BMI 29.0
[2019-08-14 16:19] VITALS: BP 167/76; PULSE 84; RESP 16; TEMP 36.7; O2SAT 99; BMI 27.4
--- NOTE | 2019-08-14 16:50 | CT_ITS ---
STUDY: CT ABDOMEN AND PELVIS WITH CONTRAST REASON FOR EXAM: Female, 79 years old. RIGHT SIDE ABDOMINAL PAIN TODAY. CP LAST NIGHT RADIATION DOSAGE (If Supplied By Facility): CTDIvol = ( 8.15 ) mGy, DLP = ( 909.91 ) mGycm TECHNIQUE: Transaxial images were obtained from the dome of the diaphragm to the symphysis pubis with oral contrast. Oral and amp; IV Gastrografin and amp; 100mL Isovue-370 was administered. Sagittal and coronal images were reconstructed. Individualized dose optimization techniques were used for this CT. COMPARISON: 04/27/2013. FINDINGS: The visualized lung bases are unremarkable. The visualized portions of the heart are within normal limits. There is decreased attenuation of the liver consistent with steatosis. There is hepatomegaly. Abnormal gallbladder which is distended and has at least one stone in the gallbladder neck. Mild gallbladder wall thickening. Moderate pericholecystic edema. Findings suggest acute cholecystitis. Gallbladder is within normal limits. There is splenomegaly. Normal bilateral adrenal glands. Normal right kidney. Normal left kidney. Normal visualized stomach. Normal small intestine. Normal caliber large bowel which is not opacified and therefore suboptimally evaluated. Abnormal sigmoid colon showing diverticulosis, prominent sigmoid wall thickening, and adjacent inflammatory stranding and probable small localized perforation with extraluminal foci of air superior to the sigmoid. Findings are consistent with diverticulitis. No definite abscess. The appendix is visualized and appears normal. There is diffuse atherosclerotic calcification of the abdominal aorta, without a demonstrated aneurysm. Normal inferior vena cava. Normal retroperitoneum. Normal urinary bladder. There is absence of the uterus consistent with a prior hysterectomy. Small amount of fluid in the cul-de-sac. Normal abdominal wall. There are diffuse degenerative changes of the visualized lumbar spine. CT/Abdomen/Pelvis WITH Contrast IMPRESSION: Findings consistent with acute cholecystitis. Findings consistent with acute sigmoid diverticulitis with a small localized perforation. No evidence for abscess. Hepatosplenomegaly. Electronically Signed: Rene Green MD at 19:30 EST , Service support ,
--- NOTE | 2019-08-14 16:52 | ED.VISSUMM ---
- ER Visit Summary Date of Service: 08/14/19 Chief Complaint: Abdominal pain History of Present Illness: The patient is a 79 F who presents with abdominal pain that became worse today. Patient was seen here last night for chest pain and epigastric pain. Patient was given a prescription for Prilosec last night. Patient took a dose today which did not help. Patient states the pain has moved to the right upper and right lower abdomen today. Patient was not having right upper or lower abdominal pain last night. Patient denies any fevers or chills. Patient admits to nausea but denies any vomiting. Patient denies any melena or hematochezia. Patient denies any diarrhea. Patient denies any urinary complaints. Physical Examination: Vital signs are stable. Patient is afebrile. Patient is in no acute distress. Oral mucosa is pink and moist. Neck is supple. Trachea is midline. There is no JVD. Heart was regular rate and rhythm. Lungs are clear and equal bilaterally. Abdomen is soft. Bowel sounds are normal. There is right upper and right lower quadrant tenderness. There is also some mild left upper quadrant tenderness. There is no rebound or guarding noted. Cranial nerves II through XII are intact. There are no focal motor or sensory deficits noted. Test Results: CBC shows slight thrombocytopenia of 68. This is stable compared to previous results. Comprehensive metabolic profile and lipase were essentially within normal limits. Urinalysis does not show any evidence of urinary tract infection. CT scan of the abdomen pelvis was obtained. There is acute cholecystitis. There is also sigmoid diverticulitis with a small localized perforation. There is no abscess. This was interpreted by the radiologist and reviewed by myself. Emergency Department Course and Treatment: Patient was given morphine and Zofran here. Patient is feeling better on reevaluation. Patient was started on Zosyn. Case was discussed with Dr. King. He will be in to evaluate the patient. He will admit the patient to his service. Patient and family understood and were agreeable with the plan. All questions were answered. Disposition: Admit to hospital Impression: 1. Acute cholecystitis 2. Sigmoid diverticulitis with microperforation This note was generated with [employer] software. It may contain incorrect words, spelling, and punctuation that were not noted in review of the chart prior to signing ED Disposition - Plan for ED Patient: Disposition: Acute Care Hospital [facility] Diagnosis: Acute cholecystitis, Perforation of sigmoid colon due to diverticulitis Referrals: Wili Dunbar III, MD [Primary Care Provider] -
[2019-08-14] MEDS: Ondansetron 4 MG/2 ML Vial IV (17:18)
[2019-08-14] MEDS: 0.9% Normal Saline 1,000 ML 1000 ML IV (17:18)
[2019-08-14] MEDS: Morphine 4 MG/ML Syringe IV (17:18)
[2019-08-14 17:34] LABS: Absolute Lymphocyte Count 0.53 X10^3/uL (0.83-4.51); Absolute Neutrophil Count 4.3 X10^3/uL (2.0-7.7); Basophil# 0.03 X10^3/uL; Basophil% 0.5 % (0-1); Eosinophil# 0.02 X10^3/uL; Eosinophils% 0.3 % (0-5); Hematocrit 39.3 % (37-47); Hemoglobin 12.2 g/dL (12.0-15.0); Lymphocyte # 0.53 X10^3/ul (4.0); Lymphocyte % 8.8 % (19-41); Mean Corpuscular Hgb 22.7 pg (27.0-32.0); Mean Corpuscular Volume 73.2 fL (81-99); Mean Platelet Vol. 9.1 fl (6.2-12.0); Monocyte# 0.94 X10^3/uL; Monocyte% 15.7 % (0-10); NRBC Flagged by Analyzer 0 % (0-5); Neutrophil # 4.28 X10^3/uL (2.7-7.7); Neutrophil % 71.5 % (47-70); POSITIVE COUNT YES; POSITIVE DIFFERENTIAL YES; Platelet Count 68 K/mm3 (150-450); Red Blood Count 5.37 M/mm3 (4.2-5.4)
[2019-08-14 17:38] LABS: Differential Indicated SCAN CRITERIA MET
[2019-08-14 18:07] LABS: Differential Comment SCANNED
[2019-08-14 18:08] LABS: Platelet Estimate MOD DEC (ADEQ)
[2019-08-14 18:17] LABS: ALB/GLOB Ratio 0.7 RATIO (0.9-2.4); AST(SGOT) 22 U/L (15-37); Alanine Aminotransfer ALT/SGPT 24 U/L (13-56); Albumin, Serum 3.1 g/dL (3.2-5.0); Alkaline Phosphatase 103 U/L (45-117); Anion Gap 7 (5-15); BUN 10 mg/dL (7-18); BUN/Creat Ratio 12.7 RATIO (10-20); Chloride 102 mmol/L (98-107); Creatinine, Serum 0.79 mg/dL (0.55-1.02); EST Glomerular Filtration Rate 75 mL/min (>60); Est Glom Filt Rate - Afr Amer 90 mL/min (>60); Globulin 4.5 g/dL (2.2-4.2); Glucose 180 mg/dL (74-106); Lipase 44 U/L (73-393); Potassium 3.6 mmol/L (3.5-5.1); Protein, Total 7.6 g/dL (6.4-8.2); Sodium Level 133 mmol/L (136-145)
[2019-08-14 18:20] LABS: Mucous, Urine 0 SEEN /hpf (<or=2+)
[2019-08-14 18:21] LABS: Color, Urine Yellow (Yellow); Glucose, Dipstick 50 mg/dl (Normal); Ketone-Dipstick 5 mg/dl (Negative); Leukocyte Esterase-Dipstick 25 /ul (Negative); Nitrite-Dipstick Negative (Negative); Occult Blood-Urine 10 /ul (Negative); Protein-Dipstick 15 mg/dl (Negative); Specific Gravity, Urine 1.015 (1.002-1.030); Urine Bilirubin Dipstick Negative (Negative); Urine Clarity Sl. Cloudy (Clear); Urine Urobilinogen Normal (Normal)
[2019-08-14 18:27] LABS: Bacteria RARE /hpf (None Seen); Red Blood Cells-Urine 0-5 SEEN /hpf (0-5); Squamous Epithelial Cells - UA 0-5 SEEN /hpf (5-10); White Blood Cells 0-5 SEEN /hpf (0-5)
[2019-08-14 20:10] VITALS: BP 172/76; PULSE 92; RESP 14; O2SAT 96
[2019-08-14 21:03] VITALS: BP 172/76; PULSE 92; RESP 14; TEMP 36.7; O2SAT 96
--- NOTE | 2019-08-14 21:16 | HP.PCM_ITS ---
Problem List (1) Perforation of sigmoid colon due to diverticulitis Status: Acute (2) Acute cholecystitis Status: Acute History of Present Illness Date of Admission: 08/14/19 The patient is a 79 year old F who reports that she has been having some pain for a few days. She says that a few weeks ago she was eating some nuts and just did not feel well. She reports that a few days ago she started having chest pain. She was in the emergency room last night for chest pain and work-up was negative. She came back today with nausea and right upper quadrant pain. She reports no fevers or chills. She has no vomiting. She is not having any left lower quadrant pain all of her pain is on the right side of her abdomen. She had a colonoscopy in 2018 which was normal except for copious diverticulosis. Past Medical History Past Medical History (Chronic Problems): Chronic Problems (Last Reviewed 03/17/19 @ 18:[address] Jennifer Crow DO) HTN (hypertension) (Chronic) Diabetes mellitus type 2 in obese (Chronic) GERD (gastroesophageal reflux disease) (Chronic) HLD (hyperlipidemia) (Chronic) Endometrial cancer (Chronic) has had MARYANA/BSO and recently a mass in the vagina was biopsied....path is pending Venous insufficiency of both lower extremities (Chronic) KIMBERLEE (obstructive sleep apnea) (Chronic) not compliant with CPAP Obesity (BMI 30.0-34.9) (Chronic) Lower extremity weakness (Chronic) Frequent falls (Chronic) Osteoarthritis (Chronic) Glaucoma (Chronic) Diverticulosis (Chronic) Mild aortic stenosis (Chronic) Diabetes mellitus (Chronic) Tinea corporis (Chronic) Dizziness (Chronic) Medical History: Medical History (Last Reviewed 03/17/19 @ 18:[address] Jennifer Crow DO) Cough R05 Diabetes E11.9 GERD (gastroesophageal reflux disease) K21.9 Heart murmur R01.1 Sleep apnea G47.30 HTN (hypertension) I10 Allergies candesartan cilexetil [From Atacand] Adverse Reaction (Verified 08/13/19 20:47) Abd cramps/diarrhea lisinopril Adverse Reaction (Verified 08/13/19 20:47) Vomiting losartan potassium [From Cozaar] Adverse Reaction (Verified 08/13/19 20:47) Other pioglitazone HCl [From Actos] Adverse Reaction (Verified 03/06/20 20:47) Other prednisone Adverse Reaction (Verified 08/13/19 20:47) Swelling simvastatin [From Zocor] Adverse Reaction (Verified 08/13/19 20:47) Other sitagliptin phosphate [From Januvia] Adverse Reaction (Verified 08/13/19 20:47) Upset Stomach Sulfa (Sulfonamide Antibiotics) Adverse Reaction (Verified 08/13/19 20:47) Other Home Medications: Ambulatory Orders Medication Instructions Recorded Aspirin [Aspirin, Baby] 81 mg PO DAILY@0800 04/17/13 Nystatin [Mycostatin] 1 applic TOPICAL 4X/DAY PRN 04/17/13 metFORMIN HCl [Glucophage] 1,000 mg PO BIDCM 04/17/13 atorvastatin 10 mg tablet 10 mg PO QHS 10/15/17 insulin aspart U-100 100 unit/mL 10 unit SC TIDCM 10/15/17 (3 mL) subcutaneous pen insulin glargine 100 unit/mL 30 unit SC QHS 10/15/17 subcutaneous solution Latanoprost 1 drop EACH EYE QHS 10/30/17 Dulaglutide [Trulicity] 1.5 mg SQ QWEEK 03/16/19 Metoprolol Succinate 100 mg PO BID 03/16/19 Ranitidine [Zantac] 150 mg PO BIDCM 03/16/19 Acetaminophen [Tylenol] 1,000 mg PO Q8 03/19/19 Calcium (Elemental) [Os-Jerad 500] 500 mg PO BIDCM 03/19/19 Cholecalciferol (VIT D3) [Vitamin 1,000 unit PO BID 03/19/19 D3] Meclizine HCl [Antivert] 25 mg PO TID PRN PRN tab 03/19/19 Alendronate Sodium [Fosamax] 70 mg PO QWEEK #4 tab 04/13/19 Menthol/Lanolin/Calamine/Znox 1 applic TOPICAL 0600,2200 tube 04/13/19 [Calmoseptine Ointment] Mineral Oil/Petrolatum,White 1 applic TOPICAL QHS jar 04/13/19 [Eucerin] Potassium Chloride [K-Dur] 20 meq PO DAILYCM #30 tab 04/13/19 miscellaneous medical supply 1 ea MISCELLANEOUS .PRN #1 ea 06/28/19 Omeprazole [Prilosec] 20 mg PO DAILY #30 cap 08/13/19 Surgical History: Surgical History (Last Reviewed 03/17/19 @ 18:[address] Jennifer Crow DO) S/P MARYANA-BSO Z90.710, Z90.722, Z90.79 S/P hemorrhoidectomy Z98.890, Z87.19 Status post colonoscopy Z98.890 uterine ablation uterine ca Surgical History: hysterectomy - MARYANA-BSO, - - Hemorrhoidectomy, Uterine ablation. 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 Denies: Constipation, Diarrhea, Vomiting Genitourinary: Denies: Dysuria Musculoskeletal: Denies: Joint Tenderness Skin: Denies: Dryness, Jaundice Psychiatric: Denies: Anxiety Hematologic/ Lymphatic: Denies: Anemia VTE Information - Inpt Only VTE Present on Admission: No VTE Mechan Device Prophylaxis: SCD's Patient Problems: Active and Suspected Problems (Last Reviewed 03/17/19 @ 18:[address] Jennifer Crow DO) Acute cholecystitis (Acute) Perforation of sigmoid colon due to diverticulitis (Acute) Perforation of sigmoid colon due to diverticulitis (Acute) - Physical Exam Vitals/I&O's: Vital Signs Temp Pulse Resp BP Pulse Ox 98.1 F 92 14 172/76 H 96 08/14/19 21:03 08/14/19 21:03 08/14/19 21:03 08/14/19 21:03 08/14/19 21:03 Oxygen Delivery Method Room Air Weight: 165 lb Body Mass Index (BMI) 27.4 Finger Stick Blood Glucose 145 Intake and Output for Last 24 Hours 08/12/19 08/13/19 08/14/19 23:59 23:59 23:59 Intake Total 1050 / 1050 Balance 1050 / 1050 General: Alert, Oriented x3 Neck: No JVD Lungs: Normal air movement Cardiovascular: Regular rate, Regular Rhythm Abdomen: Soft, Non-Distended, Tender - Tender in the right upper quadrant. Left lower quadrant is soft and nontender Extremities: No clubbing Skin: No rashes Musculoskeletal: No Muscle Wasting Neurological: Cranial nerves II-XII grossly intact Psych/Mental Status: Normal Affect Laboratory Results 08/14/19 17:05: WBC 6.0, RBC 5.37, Hgb 12.2, Hct 39.3, MCV 73.2 L, MCH 22.7 L, MCHC 31.0 L, RDW Std Deviation 47.0 H, RDW Coeff of Honey 19.0 H, Plt Count 68 L, MPV 9.1, Immature Gran % (Auto) 3.200 H, Neut % (Auto) 71.5 H, Lymph % (Auto) 8.8 L, [place] % (Auto) 15.7 H, Eos % (Auto) 0.3, Baso % (Auto) 0.5, Absolute Neuts (auto) 4.3, Absolute Lymphs (auto) 0.53 L, Nucleated RBC % 0, Differential Comment SCANNED, Platelet Estimate MOD 08/14/19 17:05: Sodium 133 L, Potassium 3.6, Chloride 102, Carbon Dioxide 24.0, Anion Gap 7, BUN 10, Creatinine 0.79, Estim Creat Clear Calc 39.70, Est GFR (MDRD) Af Amer 90, Est GFR (MDRD) Non-Af 75, BUN/Creatinine Ratio 12.7, Glucose 180 H, Calcium 9.0, Total Bilirubin 1.00, AST 22, ALT 24, Alkaline Phosphatase 103, Total Protein 7.6, Albumin 3.1 L, Globulin 4.5 H, Albumin/Globulin Ratio 0.7 L, Lipase 44 L 08/14/19 18:15: Urine Color Yellow, Urine Clarity Sl. Cloudy, Urine pH 7.0, Ur Specific [place] 1.015, Urine Protein 15 H, Urine Glucose (UA) 50 H, Urine Ketones 5 H, Urine Occult Blood 10 H, Urine Nitrite Negative, Urine Bilirubin Negative, Urine Urobilinogen Normal, Ur Leukocyte Esterase 25 H, Urine RBC 0-5 SEEN, Urine WBC 0-5 SEEN, Ur Squamous Epith Cells 0-5 SEEN, Urine Bacteria RARE, Urine Mucus 0 SEEN Clinical Impression(s) from Imaging Studies Abdomen/Pelvis CT 08/14/19 16:50 IMPRESSION: Findings consistent with acute cholecystitis. Findings consistent with acute sigmoid diverticulitis with a small localized perforation. No evidence for abscess. Hepatosplenomegaly. Electronically Signed: Rene Green MD at 19:30 EST , Service support , Current Medications Acetaminophen (Tylenol) 650 mg PO Q4H PRN PRN PRN Reason: Pain or Fever Sodium Chloride () 1,000 mls @ 100 mls/hr IV .Q10H HAROON Pantoprazole Sodium 40 mg/ (Sodium Chloride) 110 mls @ 330 mls/hr IV Q24 HAROON Piperacillin Sod/Tazobactam (Sod 3.375 gm/ Sodium Chloride) 50 mls @ 12.5 mls/hr IV Q8 HAROON Morphine Sulfate () 2 - 4 mg IV Q2H PRN PRN PRN Reason: Pain Score 4-10/10 Ondansetron HCl (Zofran) 4 mg IV Q6H PRN PRN PRN Reason: NAUSEA Assessment/Plan All Active Problems (Last Reviewed 03/17/19 @ 18:[address] Jennifer Crow, DO) Personal history of colonic polyps (Acute) Closed left ankle fracture (Acute) Inability to ambulate due to ankle or foot (Acute) Hyponatremia (Resolved) Dehydration (Resolved) Urinary tract infection (Acute) Debility (Acute) Acute cholecystitis (Acute) Perforation of sigmoid colon due to diverticulitis (Acute) Perforation of sigmoid colon due to diverticulitis (Acute) 79-year-old female with acute cholecystitis and perforated diverticulitis 1. The patient has CT scan which shows extensive inflammation around the gallbladder as well as a calcified stone in the neck of the gallbladder. LFTs are normal. There is no sign of dilation indicating obstruction. She has a lot of pain in the right upper quadrant. 2. She is not having the left lower quadrant pain. The patient had a colonoscopy 2 years ago which was normal except for diverticulosis. The patient CT scan indicates diverticulitis with a small amount of adjacent extraluminal air indicating microperforation. There is no free abdominal air in the upper abdomen. 3. I discussed this with the patient and her daughter. I discussed that if the patient came in with just this diverticulitis with microperforation I would likely observe her with bowel rest and antibiotics. The acute cholecystitis warrants laparoscopic cholecystectomy. I discussed this with him as well. The patient is very hesitant about getting a colostomy and does not want any thing done about her diverticulitis. At this time I will admit her and start antibiotics and keep her n.p.o. I will take her tomorrow morning for laparoscopic cholecystectomy. I discussed the possibility of opening and placing a cholecystostomy tube if necessary. I discussed the procedure in detail with the patient. I discussed the risks, benefits, and alternatives of the procedure. I discussed the risks including but not limited to bleeding, infection, injury to surrounding organs such as the liver, bile duct, bowels. I did discuss the possibility of having to convert to an open procedure as well as the possibility that if any injuries occurred this may necessitate further surgery at a tertiary care center. 4. The plan for her diverticulitis will be observation and 2 weeks of antibiotics. I informed her that she would likely need colostomy if she had emergent surgery. If anything changes overnight or her vitals change or if there is any change in the pattern of her pain we will discuss sigmoid colectomy. Luis King MD Pager: [facility] [address] [place] [address], [address] [place] [address] Office:
[2019-08-14 21:35] VITALS: PULSE 87
[2019-08-14 21:36] VITALS: BP 137/60; PULSE 87; RESP 14; TEMP 36.9; O2SAT 100
[2019-08-14 21:37] VITALS: BMI 28.3
[2019-08-14 21:45] VITALS: BMI 28.3
[2019-08-14] MEDS: 0.9% Normal Saline 1,000 ML 100 ML IV (22:37)
[2019-08-14 22:38] VITALS: PULSE 87
[2019-08-14] MEDS: Metoprolol(XL)Succ 100 MG Tablet PO (22:38)
[2019-08-14] MEDS: Atorvastatin Calcium 10 MG Tablet PO (22:39)
[2019-08-14] MEDS: Latanoprost 0.005% 1 Bottle 1 DRP EACH EYE (22:39)
[2019-08-15] VITALS (17 sets, daily range): BP systolic 92–168; BP diastolic 38–85; PULSE 63–109; RESP 15–20; TEMP 36.2–37.3; O2SAT 90–98; BMI 28.3
--- NOTE | 2019-08-15 | GALL_PTH ---
PATIENT: NOELLE DIXON LOC: MS2 U#:[id number] AGE/SX: 79/F ROOM: MS214 RE08/14/[address]: Dr. Luis King MD : 1940 BED: 1 DIS: 08/19/2019 SPEC #: [id number] RECD: 08/15/19 23:36 STATUS: JAZMÍN RESandra #: [id number] COSTA: 08/15/19 00:[address]: Luis King DEPT: SURGICAL PATHOLOGY RECD BY: Kj Ford ENTERED: 08/16/19 08:21 SP TYPE: LIZZY GRACIA DR: Dr. Wili Dunbar III, MD Tissues: Gallbladder, NOS Procedures: Surgery Specimen Level III HEADER OPERATION: Laparoscopic cholecystectomy with IOC PRE-OP DIAGNOSIS: Acute cholecystitis TISSUE SUBMITTED: Gallbladder MICROSCOPIC DIAGNOSIS Gallbladder, cholecystectomy: Acute and chronic cholecystitis with Rokitansky-Aschoff sinuses. AM:francisco 08/17/19 MICROSCOPIC DESCRIPTION Slides are reviewed. GROSS DESCRIPTION Received is one container labeled with the patient's name and designated gallbladder. The specimen consists of a gallbladder measuring 8 x 4 x 3 cm. The external surface is smooth and glistening. Focally, it is granular, hemorrhagic and contains cautery artifact. The lumen of the gallbladder contains dark murillo-red mucoid bile. No stones are identified in the container or in the gallbladder. The mucosa is bile-stained and without any mass lesions. The gallbladder wall averages 0.3 cm in thickness and is free of mass lesions. Telemedicine Physician sections of the gallbladder and the cystic duct at margin of resection are submitted in one cassette. / AM:francisco 08/16/19 TC:2 CPT: 49898
--- NOTE | 2019-08-15 05:00 | EKG12_ITS ---
Test Reason : AM EKG Blood Pressure : / mmHG Vent. Rate : 088 BPM Atrial Rate : 088 BPM P-R Int : 162 ms QRS Dur : 080 ms QT Int : 386 ms P-R-T Axes : 072 054 078 degrees QTc Int : 467 ms Normal sinus rhythm Normal ECG Confirmed by ANDRES LATHAM, WILLIAM ([id number]), editor greeting card LEWIS SRIVASTAVA ([id number]) on 08/18/2019 10:02:38 AM Referred By: ANTONIO Confirmed By:WILLIAM CAMPOS MD
[2019-08-15] MEDS: Insulin Lispro 100 UNIT/ML INSULN.PEN SC ×2 (06:17→12:37)
[2019-08-15 06:38] LABS: Absolute Lymphocyte Count 0.97 X10^3/uL (0.83-4.51); Absolute Neutrophil Count 5.6 X10^3/uL (2.0-7.7); Basophil# 0.05 X10^3/uL; Basophil% 0.6 % (0-1); Eosinophil# 0.04 X10^3/uL; Eosinophils% 0.5 % (0-5); Hematocrit 35.6 % (37-47); Hemoglobin 11.1 g/dL (12.0-15.0); Lymphocyte # 0.97 X10^3/ul (4.0); Lymphocyte % 11.2 % (19-41); Mean Corp Hgb Conc 31.2 g/dL (32-36); Mean Corpuscular Hgb 22.8 pg (27.0-32.0); Mean Corpuscular Volume 73.3 fL (81-99); Monocyte# 1.79 X10^3/uL; Monocyte% 20.6 % (0-10); NRBC Flagged by Analyzer 0 % (0-5); Neutrophil # 5.59 X10^3/uL (2.7-7.7); Neutrophil % 64.2 % (47-70); POSITIVE COUNT YES; POSITIVE DIFFERENTIAL YES; Platelet Count 77 K/mm3 (150-450); RBC Distribution Width CV 18.9 % (11.6-14.6); RBC Distribution Width SD 47.9 fl (35.1-43.9); Red Blood Count 4.86 M/mm3 (4.2-5.4); White Blood Count 8.7 K/mm3 (4.4-11.0)
[2019-08-15 06:51] LABS: Bedside Glucose 186 mg/dL (70-110)
[2019-08-15 06:54] LABS: Differential Indicated SCAN CRITERIA MET
[2019-08-15 07:10] LABS: ALB/GLOB Ratio 0.7 RATIO (0.9-2.4); AST(SGOT) 24 U/L (15-37); Alanine Aminotransfer ALT/SGPT 21 U/L (13-56); Albumin, Serum 2.6 g/dL (3.2-5.0); Alkaline Phosphatase 87 U/L (45-117); Anion Gap 8 (5-15); BUN 10 mg/dL (7-18); BUN/Creat Ratio 13.1 RATIO (10-20); Calcium,Total 7.9 mg/dL (8.5-10.1); Chloride 101 mmol/L (98-107); Creatinine, Serum 0.76 mg/dL (0.55-1.02); EST Glomerular Filtration Rate 77 mL/min (>60); Est Glom Filt Rate - Afr Amer 93 mL/min (>60); Globulin 3.6 g/dL (2.2-4.2); Glucose 186 mg/dL (74-106); Potassium 3.7 mmol/L (3.5-5.1); Protein, Total 6.2 g/dL (6.4-8.2); Sodium Level 132 mmol/L (136-145)
--- NOTE | 2019-08-15 07:35 | NURSING ---
Surgery RN called this RN for report, report given and okay to transport pt
[2019-08-15 07:37] LABS: Anisocytosis 1+; Microcytosis 2+; Platelet Estimate MOD DEC (ADEQ)
--- NOTE | 2019-08-15 08:00 | RAD_ITS ---
PROCEDURE: INTRAOPERATIVE CHOLANGIOGRAM DATE OF EXAMINATION: 08/15/2019 INDICATION: Female, 79 years old. Following a laparoscopic cholecystectomy an intraoperative cholangiogram was performed by the surgeon. FLUOROSCOPY TIME (if supplied): ( ) 14.5 seconds. 92 images provided. TECHNIQUE: Under fluoroscopic guidance an intraoperative cholangiogram was performed with serial digital images obtained. FINDINGS: There is normal opacification of the common bile duct, hepatic duct, right and left hepatic ducts. The ducts are normal in size. There is no mucosal irregularity or intraluminal filling defects. The contrast flows into the second portion of the duodenum. RAD/Cholangiogram/ O R,Initial IMPRESSION: Normal intraoperative cholangiogram. Electronically Signed: Brian Gao MD (Brooks) at 14:19 EDT , Service support ,
[2019-08-15] MEDS: Bupiv/Epi 0.25% 30 ML Vial (09:10)
--- NOTE | 2019-08-15 09:26 | PCM.OPRPT ---
Problem List (1) Perforation of sigmoid colon due to diverticulitis Status: Acute (2) Acute cholecystitis Status: Acute Report of Operation Date of Procedure: 08/15/19 Pre-Operative Diagnosis: Acute cholecystitis Post-Operative Diagnosis: Same Surgery/Procedure Performed:: Laparoscopic cholecystectomy with cholangiogram Description of Surgical Findings:: Very inflamed gallbladder with gallstone in the neck of the gallbladder. No inflammation of the colon or feculent matter in the pelvis. Specimen's removed: Gallbladder and contents Description of Procedure: After obtaining informed consent patient was brought back to the operating room. General anesthesia was induced. The abdomen was prepped and draped in usual sterile fashion. A small midline incision was made superior to the umbilicus and deepened to the level of fascia. The fascia was elevated and incised. Next the peritoneum was elevated and incised in the same fashion. Finger sweep was performed and the Flores trocar was placed into the abdomen. The balloon was inflated. The abdomen was inflated to 15 mmHg. Next a camera was introduced into the abdomen and the abdomen was inspected. Next under direct visualization three 5-mm ports were placed one subxiphoid and 2 subcostal. The gallbladder was aspirated of its contents as it was very tense and inflamed. Next the gallbladder was elevated and retracted toward the right shoulder. The peritoneum was stripped from the gallbladder. The infundibulum was located and retracted laterally. Next the triangle of Calot was dissected and the cystic duct and cystic artery were identified. Cholangiograms were performed. A clip was placed in the proximal cystic duct. Next a small quynh was made in the skin in the right upper quadrant of the Ranfac catheter was placed into the abdomen under direct visualization. A small quynh was made in the cystic duct as well and the stone that was stuck in the cystic duct was removed. Next the Ranfac catheter was placed into the cystic duct and a clip was placed over this and cholangiograms were then taken. There was good filling of the common bile duct with flow into the duodenum. There were no filling defects noted. Next the clip was removed and the Ranfac was removed and the cystic duct. 2 clips were placed on the cystic duct and it was divided. The cystic artery was clipped and divided in the same fashion. The hook cautery was then used to take the gallbladder off of the gallbladder bed. Hemostasis was obtained. There was some oozing from the gallbladder fossa and Surgicel was placed in the gallbladder fossa to control this. Gallbladder fossa was irrigated and no active bleeding or bile leakage was noted. The Surgicel appeared to stop the bleeding. Next the camera was introduced in the subxiphoid port. An Endopouch bag was placed through the umbilical port and the gallbladder was placed into it. The gallbladder was then removed through the umbilical incision. The camera was then reinserted through the umbilical port. The gallbladder fossa was inspected once more and noted to be hemostatic with no leaking bile. The abdomen was suctioned dry. The patient was placed into Trendelenburg position and the pelvis was inspected. The sigmoid colon appeared soft with no inflammation. There was no feculent matter in the pelvis or signs of freely perforated diverticulitis. The pelvis was irrigated and suctioned dry. The 5 mm ports were removed under direct visualization. The umbilical port was then removed and the air was removed from the abdomen. Next using an 0 Vicryl suture the umbilical fascia was closed in a [id number] fashion. The umbilical port site was irrigated local anesthetic was administered to all the incisions. All the incisions were closed with interrupted subcuticular 4-0 Monocryl sutures followed by Steri-Strips and dressings. The patient was awoken and taken to PACU in stable condition. - Admit VTE Documentation VTE Mechan Device Prophylaxis: SCD's
[2019-08-15 09:46] LABS: Bedside Glucose 209 mg/dL (70-110)
[2019-08-15] MEDS: 0.9% Normal Saline 1,000 ML 100 ML IV ×2 (10:29→22:01)
[2019-08-15 16:20] LABS: Bedside Glucose 163 mg/dL (70-110)
[2019-08-15] MEDS: 0.9% Saline Lock 10 ML Syringe IV (17:49)
[2019-08-15] MEDS: Morphine 2 MG/ML Syringe IV ×2 (17:49→22:01)
[2019-08-15 22:45] LABS: Bedside Glucose 183 mg/dL (70-110)
[2019-08-16] VITALS (9 sets, daily range): BP systolic 107–123; BP diastolic 43–57; PULSE 85–102; RESP 16–18; TEMP 36.7–37; O2SAT 92–94; BMI 28.3
[2019-08-16 00:26] LABS: Bedside Glucose 192 mg/dL (70-110)
[2019-08-16] MEDS: Latanoprost 0.005% 1 Bottle 1 DRP EACH EYE ×2 (00:29→21:53)
[2019-08-16 06:01] LABS: Absolute Lymphocyte Count 1.17 X10^3/uL (0.83-4.51); Absolute Neutrophil Count 6.6 X10^3/uL (2.0-7.7); Basophil# 0.03 X10^3/uL; Basophil% 0.3 % (0-1); Eosinophil# 0.02 X10^3/uL; Eosinophils% 0.2 % (0-5); Lymphocyte # 1.17 X10^3/ul (4.0); Mean Corp Hgb Conc 31.3 g/dL (32-36); Mean Corpuscular Hgb 23.1 pg (27.0-32.0); Mean Corpuscular Volume 74.1 fL (81-99); Mean Platelet Vol. 10.3 fl (6.2-12.0); Monocyte# 2.59 X10^3/uL; Monocyte% 24.3 % (0-10); NRBC Flagged by Analyzer 0 % (0-5); POSITIVE COUNT YES; POSITIVE DIFFERENTIAL YES; POSITIVE MORPHOLOGY YES; Platelet Count 58 K/mm3 (150-450); RBC Distribution Width CV 18.5 % (11.6-14.6); RBC Distribution Width SD 48.5 fl (35.1-43.9); Red Blood Count 4.32 M/mm3 (4.2-5.4); White Blood Count 10.6 K/mm3 (4.4-11.0)
[2019-08-16 06:07] LABS: Differential Indicated SCAN CRITERIA MET
[2019-08-16] MEDS: Morphine 2 MG/ML Syringe IV (06:18)
[2019-08-16 06:39] LABS: Differential Comment SCANNED; Platelet Estimate MKD DEC (ADEQ); Reactive Lymphocyte RARE
[2019-08-16 06:40] LABS: Hypochromasia RARE; Microcytosis RARE
[2019-08-16 06:44] LABS: Anion Gap 7 (5-15); BUN 14 mg/dL (7-18); BUN/Creat Ratio 16.8 RATIO (10-20); Calcium,Total 7.8 mg/dL (8.5-10.1); Chloride 107 mmol/L (98-107); Creatinine, Serum 0.84 mg/dL (0.55-1.02); EST Glomerular Filtration Rate 70 mL/min (>60); Est Glom Filt Rate - Afr Amer 84 mL/min (>60); Estimated Creatinine Clearance 47.26 ml/min; Glucose 187 mg/dL (74-106); Potassium 3.5 mmol/L (3.5-5.1); Sodium Level 136 mmol/L (136-145)
[2019-08-16 07:26] LABS: Bedside Glucose 176 mg/dL (70-110)
--- NOTE | 2019-08-16 08:21 | PCM.PN.SRG ---
Patient Problems: Active and Suspected Problems (Last Reviewed 03/17/19 @ 18:[address] Jennifer Crow, DO) Acute cholecystitis (Acute) Perforation of sigmoid colon due to diverticulitis (Acute) Perforation of sigmoid colon due to diverticulitis (Acute) Subjective: Patient fractionating still operator in the upper abdomen. She reports no flatus. - Physical Exam Vitals/I&O's: Vital Signs Temp Pulse Resp BP Pulse Ox 98.3 F 102 H 16 110/45 L 92 08/16/19 04:45 08/16/19 04:45 08/16/19 04:45 08/16/19 04:45 08/16/19 07:40 Oxygen Flow Rate (L/min) 1 Oxygen Delivery Method Room Air Weight: 170 lb 3.15 oz Body Mass Index (BMI) 28.3 Finger Stick Blood Glucose 209 Intake and Output for Last 24 Hours 08/14/19 08/15/19 08/16/19 22:59 23:59 23:59 Intake Total 150 / 150 Output Total 150 / 150 Balance 0 / 0 General: Alert, Oriented x3 Lungs: Normal air movement Cardiovascular: Regular rate, Regular Rhythm Abdomen: Soft, Non-Distended, Tender - Tender in the upper abdomen and over incisions Laboratory Results 08/15/19 09:40: POC Glucose 209 H 08/15/19 16:13: POC Glucose 163 H 08/15/19 22:38: POC Glucose 183 H 08/16/19 00:22: POC Glucose 192 H 08/16/19 05:35: WBC 10.6, RBC 4.32, Hgb 10.0 L, Hct 32.0 L, MCV 74.1 L, MCH 23.1 L, MCHC 31.3 L, RDW Std Deviation 48.5 H, RDW Coeff of Honey 18.5 H, Plt Count 58 L, MPV 10.3, Immature Gran % (Auto) 2.200 H, Neut % (Auto) 62.0, Lymph % (Auto) 11.0 L, [place] % (Auto) 24.3 H, Eos % (Auto) 0.2, Baso % (Auto) 0.3, Absolute Neuts (auto) 6.6, Absolute Lymphs (auto) 1.17, Nucleated RBC % 0, Differential Comment SCANNED, Reactive Lymphocytes RARE, Platelet Estimate MKD DEC, Hypochromasia RARE, Microcytosis RARE 08/16/19 05:35: Sodium 136, Potassium 3.5, Chloride 107, Carbon Dioxide 22.0, Anion Gap 7, BUN 14, Creatinine 0.84, Estim Creat Clear Calc 47.26, Est GFR (MDRD) Af Amer 84, Est GFR (MDRD) Non-Af 70, BUN/Creatinine Ratio 16.8, Glucose 187 H, Calcium 7.8 L 08/16/19 07:15: POC Glucose 176 H Current Medications Acetaminophen (Tylenol) 650 mg PO Q4H PRN PRN PRN Reason: Pain (-03/18) or Fever Atorvastatin Calcium (Lipitor) 10 mg PO QHS [facility] Last Admin: 08/15/19 22:58 Dose: Not Given Documented by: Glucagon () 1 mg IM .X1 PRN PRN Reason: Hypoglycemia Sodium Chloride () 1,000 mls @ 100 mls/hr IV .Q10H [facility] Last Admin: 08/15/19 22:01 Dose: 100 mls/hr Documented by: Pantoprazole Sodium 40 mg/ (Sodium Chloride) 110 mls @ 330 mls/hr IV Q24 [facility] Last Infusion: 08/15/19 12:39 Dose: Infused Documented by: Piperacillin Sod/Tazobactam (Sod 3.375 gm/ Sodium Chloride) 50 mls @ 12.5 mls/hr IV Q8 [facility] Last Admin: 08/16/19 06:18 Dose: 12.5 mls/hr Documented by: Dextrose (Dextrose 10%-Water) 250 mls @ 999 mls/hr IV .Q16M PRN; Protocol PRN Reason: HYPOGLYCEMIA Sodium Chloride () 250 mls @ 15 mls/hr IV .[id number] PRN PRN Reason: Saline Flush Last Infusion: 08/15/19 23:01 Dose: 0 mls/hr Documented by: Sodium Chloride () 250 mls @ 15 mls/hr IV .[id number] PRN PRN Reason: Additional IVPB Infusion Insulin Human Lispro (Humalog Kwikpen (Bkc)) 0 unit SC Q6 [facility]; Protocol Last Admin: 08/16/19 07:39 Dose: Not Given Documented by: Latanoprost (Xalatan Opthalmic) 1 drop EACH EYE QHS [facility] Last Admin: 08/16/19 00:29 Dose: 1 drop Documented by: Meclizine HCl (Antivert) 25 mg PO TID PRN PRN PRN Reason: Vertigo Metoprolol Succinate (Toprol Xl (Beta Eligio)) 100 mg PO BID [facility] Last Admin: 08/15/19 22:58 Dose: Not Given Documented by: Morphine Sulfate () 2 - 4 mg IV Q2H PRN PRN PRN Reason: Pain Score 4-10/10 Last Admin: 08/16/19 06:18 Dose: 2 mg Documented by: Morphine Sulfate () 2 - 4 mg IV Q2H PRN PRN PRN Reason: Pain Score 4-10/10 Nutritional Formula (Lactose Free) (Ensure Enlive) 120 ml PO 4X/DAY [facility] Last Admin: 08/15/19 22:58 Dose: Not Given Documented by: Ondansetron HCl (Zofran) 4 mg IV Q6H PRN PRN PRN Reason: NAUSEA Potassium Chloride (K-Dur) 20 meq PO DAILYCM [facility] Last Admin: 08/15/19 16:19 Dose: Not Given Documented by: Sodium Chloride () 10 - 40 ml IV UD PRN PRN Reason: SALINE FLUSH Last Admin: 08/15/19 17:49 Dose: 10 ml Documented by: Medical Necessity - Tobacco Use Smoking Status: Former smoker Assessment/Plan All Active Problems (Last Reviewed 03/17/19 @ 18:[address] Jennifer Crow DO) Personal history of colonic polyps (Acute) Closed left ankle fracture (Acute) Inability to ambulate due to ankle or foot (Acute) Hyponatremia (Resolved) Dehydration (Resolved) Urinary tract infection (Acute) Debility (Acute) Acute cholecystitis (Acute) Perforation of sigmoid colon due to diverticulitis (Acute) Perforation of sigmoid colon due to diverticulitis (Acute) 79-year-old female status post laparoscopic cholecystectomy for acute cholecystitis 1. The patient's original CAT scan showed acute diverticulitis with microperforation as well as acute cholecystitis. She went for laparoscopic cholecystectomy yesterday morning. She is not passing any flatus but she does have positive bowel sounds. Continue n.p.o. and IV antibiotics for both the diverticulitis and the cholecystitis. Encourage ambulation. If she starts passing flatus I may start clear liquids today. Luis King MD Pager: [facility] [address] [place] [address], [address] [place] [address] Office:
[2019-08-16] MEDS: 0.9% Normal Saline 1,000 ML 100 ML IV ×2 (08:34→21:52)
[2019-08-16] MEDS: Metoprolol(XL)Succ 100 MG Tablet PO (08:38)
[2019-08-16 11:56] LABS: Bedside Glucose 167 mg/dL (70-110)
--- NOTE | 2019-08-16 13:47 | CASEMGMT ---
This RN CM to room to complete CM assessment and therapy is at bedside at this time. Will attempt again later. SStnannette RN CM
--- NOTE | 2019-08-16 14:23 | CASEMGMT ---
ALEXANDER WEBER assessment: Face to Face with patient for initial transition planning/care coordination assessment. ALEXANDER WEBER introduced self and role at [facility], pt voices understanding and consents to assessment at this time. Pt is lying in bed in no distress at this time. Pt is A/Ox4 at this time and answers all questions appropriately at this time. Care providers, pharmacy, and demographics verified at this time. Presentation: Right sided abd pain Admitting dx: Acute cholecystitis, perforated diverticulitis PCP: Bettina NIETO Specialists: Pt states none currently Preferred Pharmacy: [facility] Insurance: [facility] A/B, MMO Prescription Benefit: Yes, unsure who it's through Living Will/HPOA: Pt states has LW/HPOA and is aware that they are on file at [facility] at this time. Pt states that her niece, Rosita Santos, is HPOA. LNOK: Rosita Santos, nimarco Living Arrangements: Pt states lives alone in mobile home with ramp into home and states no concerns at home at this time. Pt states is normally independent with ADL's. Transportation: Pt states that her neighbors have driven her since march and pt states no transportation concerns at this time. DME/HHC: Pt states has the following DME: cane, walker, w/c, medical alert, grab bars, shower chair, and ramp. Pt states no need for any further DME at this time. Pt states has had [facility] in the past and was at [facility] in the past. Pt states no concerns with going home at time of discharge. Pt states is retired. Pt states does not smoke or drink ETOH. Pt states no further concerns/needs at this time. CM to follow PT/OT evals and for any further discharge planning/needs. Advised pt to ask for CM if any further questions/concerns/needs arise, voices understanding. 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 Dietary will f/u at later time. Ame MUNOZ aware of pt concern, voices understanding. Pt Goal: Home Plan: Home, pending PT/OT evals
--- NOTE | 2019-08-16 15:58 | CHAPLAIN ---
Type of Pastoral Visit _x__ Initial Visit ___ Follow-up Visit ___ On-call Visit ___ General Patient Visit ___ Spiritual Assessment ___ Family Conference ___ Bereavement ___ Rapid Response ___ Code Blue ___ Other (describe below) Pastoral Care Referral From _x__ Patient ___ Family ___ Nurse ___ Physician ___ Floor Assembler ___ Calender Roll Operator ___ Other (describe below) Sacrament/Intervention _x__ Active listening ___ Anointing ___ Worship ___ Bereavement ___ Communion ___ Yolanda exploration ___ ___ Life review _x__ Prayer ___ Reconciliation ___ Sacrament of Sick ___ Supportive presence ___ Wedding ___ Other (describe below) Pastoral Comments
[2019-08-16 18:06] LABS: Bedside Glucose 190 mg/dL (70-110)
[2019-08-16] MEDS: Insulin Lispro 100 UNIT/ML INSULN.PEN SC (23:57)
[2019-08-17 00:06] LABS: Bedside Glucose 154 mg/dL (70-110)
[2019-08-17] MEDS: Insulin Lispro 100 UNIT/ML INSULN.PEN SC ×4 (05:53→21:36)
[2019-08-17] MEDS: 0.9% Normal Saline 1,000 ML 100 ML IV (05:54)
[2019-08-17 06:00] VITALS: BP 134/60; PULSE 95; RESP 18; TEMP 36.9; O2SAT 92
[2019-08-17 06:01] LABS: Bedside Glucose 153 mg/dL (70-110)
[2019-08-17 07:05] LABS: Differential Indicated MANUAL DIFF; Hematocrit 33.3 % (37-47); Hemoglobin 10.2 g/dL (12.0-15.0); Mean Corp Hgb Conc 30.6 g/dL (32-36); Mean Corpuscular Hgb 22.7 pg (27.0-32.0); Mean Corpuscular Volume 74.2 fL (81-99); Mean Platelet Vol. 9.8 fl (6.2-12.0); POSITIVE COUNT YES; POSITIVE DIFFERENTIAL YES; POSITIVE MORPHOLOGY YES; Platelet Count 61 K/mm3 (150-450); RBC Distribution Width CV 18.5 % (11.6-14.6); RBC Distribution Width SD 48.5 fl (35.1-43.9); Red Blood Count 4.49 M/mm3 (4.2-5.4); White Blood Count 9.3 K/mm3 (4.4-11.0)
[2019-08-17 07:11] LABS: Anion Gap 7 (5-15); BUN 16 mg/dL (7-18); BUN/Creat Ratio 24.9 RATIO (10-20); Calcium,Total 7.6 mg/dL (8.5-10.1); Chloride 110 mmol/L (98-107); Creatinine, Serum 0.64 mg/dL (0.55-1.02); EST Glomerular Filtration Rate 94 mL/min (>60); Est Glom Filt Rate - Afr Amer 114 mL/min (>60); Glucose 154 mg/dL (74-106); Potassium 3.4 mmol/L (3.5-5.1); Sodium Level 138 mmol/L (136-145)
[2019-08-17 07:25] LABS: Blast 4 % (0-0); Lymphocyte 19 % (19-41); Metamyelocyte 2 % (0-1); Monocyte 8 % (0-10); Neutrophil-Band 3 % (0-5); Neutrophil-Segmented 64 % (47-70); Total Cells Counted 100 (MANUAL DIFF)
[2019-08-17 07:26] LABS: Absolute Lymphocyte Count 1.75 X10^3/uL (0.83-4.51); Absolute Neutrophil Count 6.1 X10^3/uL (2.0-7.7); Lymphocyte # 1.75 X10^3/ul (4.0); Neutrophil # 6.12 X10^3/uL (2.7-7.7)
--- NOTE | 2019-08-17 07:41 | PN.SURG_ITS ---
Patient Problems: Active and Suspected Problems (Last Reviewed 03/17/19 @ 18:[address] Jennifer Crow, DO) Acute cholecystitis (Acute) Perforation of sigmoid colon due to diverticulitis (Acute) Perforation of sigmoid colon due to diverticulitis (Acute) Subjective: Patient reports she is passing flatus. She is still having discomfort. No nausea or vomiting. - Physical Exam Vitals/I&O's: Vital Signs Temp Pulse Resp BP Pulse Ox 98.5 F 95 18 134/60 H 92 08/17/19 06:00 08/17/19 06:00 08/17/19 06:00 08/17/19 06:00 08/17/19 06:00 Oxygen Flow Rate (L/min) 1 Oxygen Delivery Method Room Air Weight: 170 lb 3.15 oz Body Mass Index (BMI) 28.3 Finger Stick Blood Glucose 209 Intake and Output for Last 24 Hours 08/15/19 08/16/19 08/17/19 23:59 23:59 23:59 Intake Total 2584.50 / 2584.50 909.33 / 909.33 Output Total 750 / 750 Balance 1834.50 / 1834.50 909.33 / 909.33 General: Alert, Oriented x3 Neck: No JVD Lungs: Normal air movement Abdomen: Soft, Non-Distended Laboratory Results 08/16/19 11:46: POC Glucose 167 H 08/16/19 17:56: POC Glucose 190 H 08/16/19 23:54: POC Glucose 154 H 08/17/19 05:52: POC Glucose 153 H 08/17/19 06:47: WBC 9.3, RBC 4.49, Hgb 10.2 L, Hct 33.3 L, MCV 74.2 L, MCH 22.7 L, MCHC 30.6 L, RDW Std Deviation 48.5 H, RDW Coeff of Honey 18.5 H, Plt Count 61 L, MPV 9.8, Neut % (Auto) Not Reportable, Absolute Neuts (auto) 6.1, Absolute Lymphs (auto) 1.75, Total Counted 100, Neutrophils % (Manual) 64, Band Neutrophils % 3, Lymphocytes % (Manual) 19, Monocytes % (Manual) 8, Metamyelocytes % 2 H, Blast Cells % 4 H*, Diff Path Review October08/17/19 06:47: Sodium 138, Potassium 3.4 L, Chloride 110 H, Carbon Dioxide 21.0, Anion Gap 7, BUN 16, Creatinine 0.64, Estim Creat Clear Calc 39.70, Est GFR (MDRD) Af Amer 114, Est GFR (MDRD) Non-Af 94, BUN/Creatinine Ratio 24.9 H, Glucose 154 H, Calcium 7.6 L Current Medications Acetaminophen (Tylenol) 650 mg PO Q4H PRN PRN PRN Reason: Pain (1-03/18) or Fever Atorvastatin Calcium (Lipitor) 10 mg PO QHS [facility] Last Admin: 08/16/19 20:33 Dose: Not Given Documented by: Ciprofloxacin HCl (Cipro) 500 mg PO BID [facility] Enoxaparin Sodium (Lovenox) 40 mg SC DAILY [facility] Glucagon () 1 mg IM .X1 PRN PRN Reason: Hypoglycemia Sodium Chloride () 1,000 mls @ 60 mls/hr IV .[id number] [facility] Last Admin: 08/17/19 05:54 Dose: 100 mls/hr Documented by: Dextrose (Dextrose 10%-Water) 250 mls @ 999 mls/hr IV .Q16M PRN; Protocol PRN Reason: HYPOGLYCEMIA Sodium Chloride () 250 mls @ 15 mls/hr IV .[id number] PRN PRN Reason: Saline Flush Last Infusion: 08/17/19 05:53 Dose: 0 mls/hr Documented by: Sodium Chloride () 250 mls @ 15 mls/hr IV .[id number] PRN PRN Reason: Additional IVPB Infusion Insulin Human Lispro (Humalog Kwikpen (Bkc)) 0 unit SC ACHS [facility]; Protocol Latanoprost (Xalatan Opthalmic) 1 drop EACH EYE QHS [facility] Last Admin: 08/16/19 21:53 Dose: 1 drop Documented by: Meclizine HCl (Antivert) 25 mg PO TID PRN PRN PRN Reason: Vertigo Metoprolol Succinate (Toprol Xl (Beta Eligio)) 100 mg PO BID [facility] Last Admin: 08/16/19 20:34 Dose: Not Given Documented by: Metronidazole (Flagyl) 500 mg PO TID [facility] Morphine Sulfate () 2 - 4 mg IV Q2H PRN PRN PRN Reason: Pain Score 4-10/10 Last Admin: 08/16/19 06:18 Dose: 2 mg Documented by: Morphine Sulfate () 2 - 4 mg IV Q2H PRN PRN PRN Reason: Pain Score 4-10/10 Nutritional Formula (Lactose Free) (Ensure Enlive) 120 ml PO 4X/DAY [facility] Last Admin: 08/16/19 20:33 Dose: Not Given Documented by: Ondansetron HCl (Zofran) 4 mg IV Q6H PRN PRN PRN Reason: NAUSEA Pantoprazole Sodium (Protonix) 20 mg PO BID [facility] Potassium Chloride (K-Dur) 20 meq PO DAILYCM [facility] Last Admin: 08/16/19 08:36 Dose: Not Given Documented by: Sodium Chloride () 10 - 40 ml IV UD PRN PRN Reason: SALINE FLUSH Last Admin: 08/15/19 17:49 Dose: 10 ml Documented by: Medical Necessity - Tobacco Use Smoking Status: Former smoker Assessment/Plan All Active Problems (Last Reviewed 03/17/19 @ 18:[address] Jennifer Crow, DO) Personal history of colonic polyps (Acute) Closed left ankle fracture (Acute) Inability to ambulate due to ankle or foot (Acute) Hyponatremia (Resolved) Dehydration (Resolved) Urinary tract infection (Acute) Debility (Acute) Acute cholecystitis (Acute) Perforation of sigmoid colon due to diverticulitis (Acute) Perforation of sigmoid colon due to diverticulitis (Acute) 79-year-old female status post laparoscopic cholecystectomy 1. The patient is starting to pass flatus. Her white count is normal. I will start her on a clear liquid diet and advance as tolerated. The patient also had diverticulitis on CT scan. I will stop Zosyn and start oral Cipro and Flagyl. Luis Knig MD Pager: [facility] [address] [place] [address], [address] [place] [address] Office:
[2019-08-17 08:18] VITALS: O2SAT 93
[2019-08-17 09:14] VITALS: PULSE 100
[2019-08-17] MEDS: Ciprofloxacin 500 MG Tablet PO ×2 (09:14→21:35)
[2019-08-17] MEDS: Metoprolol(XL)Succ 100 MG Tablet PO ×2 (09:14→21:35)
[2019-08-17] MEDS: Pantoprazole Sodium 20 MG Tablet PO ×2 (09:15→21:35)
[2019-08-17] MEDS: 0.9% Saline Lock 10 ML Syringe IV (09:31)
[2019-08-17 10:44] LABS: Pathologist Review Reviewed
[2019-08-17] MEDS: Ensure Clear 120 ML Liquid PO (12:32)
[2019-08-17 12:34] VITALS: PULSE 80; RESP 18; TEMP 36.6; O2SAT 95
[2019-08-17] MEDS: metroNIDAZOLE 500 MG Tablet PO ×2 (14:30→21:35)
[2019-08-17 14:31] LABS: Bedside Glucose 196 mg/dL (70-110)
[2019-08-17 16:30] LABS: Bedside Glucose 210 mg/dL (70-110)
[2019-08-17] MEDS: Acetaminophen 325 MG Tablet 650 MG PO (19:56)
[2019-08-17 20:00] VITALS: BP 132/53; PULSE 79; RESP 18; TEMP 36.6; O2SAT 100
[2019-08-17 21:35] VITALS: BP 132/53; PULSE 79
[2019-08-17] MEDS: Latanoprost 0.005% 1 Bottle 1 DRP EACH EYE (21:35)
[2019-08-17] MEDS: Atorvastatin Calcium 10 MG Tablet PO (21:35)
[2019-08-17] MEDS: 0.9% Normal Saline 1,000 ML 60 ML IV (21:38)
[2019-08-17 21:45] LABS: Bedside Glucose 205 mg/dL (70-110)
[2019-08-18] VITALS (9 sets, daily range): BP systolic 127–165; BP diastolic 51–63; PULSE 68–82; RESP 18; TEMP 36.4–36.9; O2SAT 95–100
[2019-08-18] MEDS: Acetaminophen 325 MG Tablet 650 MG PO (04:15)
[2019-08-18] MEDS: metroNIDAZOLE 500 MG Tablet PO ×3 (06:09→22:12)
[2019-08-18] MEDS: 0.9% Saline Lock 10 ML Syringe IV (06:14)
[2019-08-18] MEDS: Furosemide 20 MG/2 ML VIAL IV (06:14)
[2019-08-18] MEDS: Insulin Lispro 100 UNIT/ML INSULN.PEN SC ×4 (06:18→22:19)
[2019-08-18 06:26] LABS: Bedside Glucose 179 mg/dL (70-110)
[2019-08-18] MEDS: Enoxaparin 40 MG/0.4 ML Syringe SC (11:04)
[2019-08-18] MEDS: Ciprofloxacin 500 MG Tablet PO ×2 (11:04→22:12)
[2019-08-18] MEDS: Pantoprazole Sodium 20 MG Tablet PO ×2 (11:05→22:12)
[2019-08-18] MEDS: Metoprolol(XL)Succ 100 MG Tablet PO ×2 (11:05→22:12)
[2019-08-18 12:21] LABS: Bedside Glucose 256 mg/dL (70-110)
[2019-08-18 16:30] LABS: Bedside Glucose 234 mg/dL (70-110)
[2019-08-18] MEDS: Atorvastatin Calcium 10 MG Tablet PO (22:12)
[2019-08-18] MEDS: Latanoprost 0.005% 1 Bottle 1 DRP EACH EYE (22:17)
[2019-08-18 22:20] LABS: Bedside Glucose 233 mg/dL (70-110)
[2019-08-19] MEDS: Ondansetron 4 MG/2 ML Vial IV (00:02)
[2019-08-19] MEDS: 0.9% Saline Lock 10 ML Syringe IV ×2 (00:03→09:19)
[2019-08-19 04:10] VITALS: BP 122/46; PULSE 76; RESP 18; TEMP 36.7; O2SAT 98
[2019-08-19] MEDS: metroNIDAZOLE 500 MG Tablet PO ×2 (05:37→12:25)
[2019-08-19] MEDS: Insulin Lispro 100 UNIT/ML INSULN.PEN SC ×2 (06:43→12:23)
[2019-08-19 06:51] LABS: Bedside Glucose 171 mg/dL (70-110)
[2019-08-19 08:00] VITALS: O2SAT 97
--- NOTE | 2019-08-19 08:18 | RAD_ITS ---
STUDY: X-RAY CHEST REASON FOR EXAM: Female, 79 years old. Cough TECHNIQUE: PA and lateral views of the chest. COMPARISON: Comparison is made with prior study of August 13, 2019. FINDINGS: Since prior study, there is evidence of a blunting of both costophrenic angles more prominent on the right side with bibasilar atelectasis and/or infiltrates. Follow-up is recommended. Normal size heart. Normal mediastinum and will. Normal visualized pulmonary arteries. There is atherosclerotic calcification of the aortic arch with tortuosity. There are diffuse degenerative changes of the visualized thoracic spine. Normal visualized ribs, clavicles, and shoulders. There is no demonstrated abnormality of the visualized soft tissue structures of the upper abdomen. RAD/Chest PA and Lateral IMPRESSION: Bibasilar atelectasis/infiltrates with blunting of both costophrenic angles worse on the right side. Electronically Signed: Chas Martinez, at 14:35 EDT , Service support ,
--- NOTE | 2019-08-19 08:19 | PN.SURG_ITS ---
Patient Problems: Active and Suspected Problems (Last Reviewed 03/17/19 @ 18:[address] Jennifer Crow, DO) Acute cholecystitis (Acute) Perforation of sigmoid colon due to diverticulitis (Acute) Perforation of sigmoid colon due to diverticulitis (Acute) Subjective: Patient tolerated regular diet but reports that after her dose of Lantus she did have a small amount of vomiting. She has no nausea or vomiting the rest of the night and has not nauseous this morning. She tolerated regular food yesterday. She is passing gas and having bowel movements. She has a cough today. She reports her shortness of breath is better after the dose of Lasix yesterday and stopping the fluids. - Physical Exam Vitals/I&O's: Vital Signs Temp Pulse Resp BP Pulse Ox 98.0 F 76 18 122/46 H 98 08/19/19 04:10 08/19/19 04:10 08/19/19 04:10 08/19/19 04:10 08/19/19 04:10 Oxygen Flow Rate (L/min) 98 Oxygen Delivery Method Room Air Weight: 170 lb 3.15 oz Body Mass Index (BMI) 28.3 Finger Stick Blood Glucose 209 Intake and Output for Last 24 Hours 08/17/19 08/18/19 08/19/19 23:59 23:59 23:59 Intake Total 2679.33 / 2679.33 484 / 484 240 / 240 Output Total 450 / 700 1300 / 1300 Balance 2229.33 / 1979.33 -816 / -816 240 / 240 General: Alert, Oriented x3 Lungs: Normal air movement Abdomen: Soft, Non-Distended Laboratory Results 08/18/19 12:06: POC Glucose 256 H 08/18/19 16:23: POC Glucose 234 H 08/18/19 22:10: POC Glucose 233 H 08/19/19 06:41: POC Glucose 171 H Current Medications Acetaminophen (Tylenol) 650 mg PO Q4H PRN PRN PRN Reason: Pain () or Fever Last Admin: 08/18/19 04:15 Dose: 650 mg Documented by: Aspirin (Aspirin, Baby) 81 mg PO DAILY@0800 COUNT INCLUDES THE [facility] Atorvastatin Calcium (Lipitor) 10 mg PO QHS COUNT INCLUDES THE [facility] Last Admin: 08/18/19 22:12 Dose: 10 mg Documented by: Ciprofloxacin HCl (Cipro) 500 mg PO BID COUNT INCLUDES THE [facility] Last Admin: 08/18/19 22:12 Dose: 500 mg Documented by: Enoxaparin Sodium (Lovenox) 40 mg SC DAILY COUNT INCLUDES THE [facility] Last Admin: 08/18/19 11:04 Dose: 40 mg Documented by: Furosemide (Lasix) 20 mg IV X1 ONE Stop: 08/19/19 08:19 Glucagon () 1 mg IM .X1 PRN PRN Reason: Hypoglycemia Dextrose (Dextrose 10%-Water) 250 mls @ 999 mls/hr IV .Q16M PRN; Protocol PRN Reason: HYPOGLYCEMIA Sodium Chloride () 250 mls @ 15 mls/hr IV .[id number] PRN PRN Reason: Saline Flush Last Infusion: 08/17/19 05:53 Dose: 0 mls/hr Documented by: Sodium Chloride () 250 mls @ 15 mls/hr IV .[id number] PRN PRN Reason: Additional IVPB Infusion Insulin Human Lispro (Humalog Kwikpen (Bkc)) 0 unit SC [facility]; Protocol Last Admin: 08/19/19 06:43 Dose: 2 units Documented by: Latanoprost (Xalatan Opthalmic) 1 drop EACH EYE QHS COUNT INCLUDES THE [facility] Last Admin: 08/18/19 22:17 Dose: 1 drop Documented by: Meclizine HCl (Antivert) 25 mg PO TID PRN PRN PRN Reason: Vertigo Metformin HCl (Glucophage) 1,000 mg PO BIDCOX BRANSON Last Admin: 08/18/19 16:38 Dose: Not Given Documented by: Metoprolol Succinate (Toprol Xl (Beta Eligio)) 100 mg PO BID COUNT INCLUDES THE [facility] Last Admin: 08/18/19 22:12 Dose: 100 mg Documented by: Metronidazole (Flagyl) 500 mg PO TID COUNT INCLUDES THE [facility] Last Admin: 08/19/19 05:37 Dose: 500 mg Documented by: Morphine Sulfate () 2 - 4 mg IV Q2H PRN PRN PRN Reason: Pain Score 4-10/10 Last Admin: 08/16/19 06:18 Dose: 2 mg Documented by: Morphine Sulfate () 2 - 4 mg IV Q2H PRN PRN PRN Reason: Pain Score 4-10/10 Ondansetron HCl (Zofran) 4 mg IV Q6H PRN PRN PRN Reason: NAUSEA Last Admin: 08/19/19 00:02 Dose: 4 mg Documented by: Pantoprazole Sodium (Protonix) 20 mg PO BID COUNT INCLUDES THE [facility] Last Admin: 08/18/19 22:12 Dose: 20 mg Documented by: Potassium Chloride (K-Dur) 20 meq PO DAILYCM COUNT INCLUDES THE [facility] Last Admin: 08/18/19 08:39 Dose: Not Given Documented by: Sodium Chloride () 10 - 40 ml IV UD PRN PRN Reason: SALINE FLUSH Last Admin: 08/19/19 00:03 Dose: 20 ml Documented by: Medical Necessity - Tobacco Use Smoking Status: Former smoker Assessment/Plan All Active Problems (Last Reviewed 03/17/19 @ 18:[address] Jennifer Crow, DO) Personal history of colonic polyps (Acute) Closed left ankle fracture (Acute) Inability to ambulate due to ankle or foot (Acute) Hyponatremia (Resolved) Dehydration (Resolved) Urinary tract infection (Acute) Debility (Acute) Acute cholecystitis (Acute) Perforation of sigmoid colon due to diverticulitis (Acute) Perforation of sigmoid colon due to diverticulitis (Acute) 79-year-old female with acute cholecystitis and perforated diverticulitis 1. Diabetes-Home regimen has been resumed. She is still getting a sliding scale as well. 2. Shortness of breath-I diurese the patient yesterday with 20 of IV Lasix and I will order another dose today. She is fluid positive. I will also order a two-view chest x-ray as she is having productive cough. 3. Acute cholecystitis-she was continued on oral antibiotics due to the acute diverticulitis but from a cholecystitis standpoint she is doing well and tolerating a diet with normal bowel movements and pain is improving. 4. DC planning-OT saw the patient 3 days ago and recommended short-term nursing facility for recovery. I would like the cardiac care nurse to start working on a discharge plan as she may be ready for discharge today or tomorrow. Luis King MD Pager: [facility] [address] [place] [address], [address] [place] [address] Office:
[2019-08-19 09:18] VITALS: PULSE 90
[2019-08-19] MEDS: Metoprolol(XL)Succ 100 MG Tablet PO (09:18)
[2019-08-19] MEDS: Aspirin 81 MG TAB.CHEW PO (09:19)
[2019-08-19] MEDS: Ciprofloxacin 500 MG Tablet PO (09:19)
[2019-08-19] MEDS: Pantoprazole Sodium 20 MG Tablet PO (09:19)
[2019-08-19] MEDS: Enoxaparin 40 MG/0.4 ML Syringe SC (09:20)
[2019-08-19] MEDS: Furosemide 20 MG/2 ML VIAL IV (09:21)
--- NOTE | 2019-08-19 09:47 | CASEMGMT ---
This RN CM to room to discuss discharge plan with pt at this time. Pt would like to go home with [facility] for SN, PT/OT at this time. Pt states she has had WC in the past. Pt states no concerns with going home at time of discharge. Pt states family lives in [place] but states that she has several neighbors that check in on her. Pt states no further concerns/needs at this time. SStaten ALEXANDER CM
[2019-08-19 10:00] VITALS: BP 140/59; PULSE 78; RESP 18; TEMP 36.6; O2SAT 98
[2019-08-19] MEDS: metFORMIN HCl 1,000 MG Tablet 1000 MG PO (12:23)
[2019-08-19 12:36] LABS: Bedside Glucose 222 mg/dL (70-110)
[2019-08-19 13:27] VITALS: BP 134/42; PULSE 77; RESP 18; TEMP 36.7; O2SAT 98
--- NOTE | 2019-08-19 15:46 | DCINST_ITS ---
Discharge Diet: Light diet - advance as tolerated Discharge Activity: Return to Normal Activity, May Not Drive - for 2-3 days or while taking narcotic pain medicataions., May Shower Additional Activity Instructions:: Pain medication may cause nausea. You should typically eat light foods as you take your pain medications. Pain medication may also cause constipation. If this is a problem for you, please discuss with your doctor. Call your doctor if your incision/area has: Continuous Slow Oozing, Sudden Increased Bleeding, Increased Pain/ Swelling, Increased Redness, Foul Smelling Discharge, Fever of 101 or Higher Call your doctor if you observe: Fever of 101 or Higher Suture Line Care: Avoid Pulling/Pushing, Avoid Pinching/Bending Remove Dressing in (days):: 1 Cleanse incision/area with: Soap & Water Allergies/Adverse Reactions: Allergies candesartan cilexetil [From Atacand] Adverse Reaction (Verified 08/13/19 20:47) Abd cramps/diarrhea lisinopril Adverse Reaction (Verified 08/13/19 20:47) Vomiting losartan potassium [From Cozaar] Adverse Reaction (Verified 08/13/19 20:47) Other pioglitazone HCl [From Actos] Adverse Reaction (Verified 08/13/19 20:47) Other prednisone Adverse Reaction (Verified 08/13/19 20:47) Swelling simvastatin [From Zocor] Adverse Reaction (Verified 08/13/19 20:47) Other sitagliptin phosphate [From Januvia] Adverse Reaction (Verified 08/13/19 20:47) Upset Stomach Sulfa (Sulfonamide Antibiotics) Adverse Reaction (Verified 08/13/19 20:47) Other Medications to take at Discharge Aspirin [Aspirin, Baby] 81 mg PO DAILY@0800 04/17/13 Nystatin [Mycostatin] 1 applic TOPICAL 4X/DAY PRN 04/17/13 metFORMIN HCl [Glucophage] 1,000 mg PO BIDCM 04/17/13 atorvastatin 10 mg tablet 10 mg PO QHS 10/15/17 insulin aspart U-100 100 unit/mL (3 mL) subcutaneous pen 10 unit SC TIDCM 10/15/17 insulin glargine 100 unit/mL subcutaneous solution 25 unit SC QHS 10/15/17 Latanoprost 1 drop EACH EYE QHS 10/30/17 Dulaglutide [Trulicity] 1.5 mg SQ QWEEK 03/16/19 Metoprolol Succinate 100 mg PO BID 03/16/19 Ranitidine [Zantac] 150 mg PO BIDCM 03/16/19 Acetaminophen [Tylenol] 1,000 mg PO Q8 03/19/19 Calcium (Elemental) [Os-Jerad 500] 500 mg PO BIDCM 03/19/19 Cholecalciferol (VIT D3) [Vitamin D3] 1,000 unit PO BID 03/19/19 Meclizine HCl [Antivert] 25 mg PO TID PRN PRN tab 03/19/19 Alendronate Sodium [Fosamax] 70 mg PO QWEEK #4 tab 04/13/19 Menthol/Lanolin/Calamine/Znox [Calmoseptine Ointment] 1 applic TOPICAL 0600,2200 tube 04/13/19 Mineral Oil/Petrolatum,White [Eucerin] 1 applic TOPICAL QHS jar 04/13/19 Potassium Chloride [K-Dur] 20 meq PO DAILYCM #30 tab 04/13/19 miscellaneous medical supply 1 ea MISCELLANEOUS .PRN #1 ea 06/28/19 Omeprazole [Prilosec] 20 mg PO DAILY #30 cap 08/13/19 Primary Care Physician: Wili Dunbar III, MD [Primary Care Provider] - Test Results: Test results from this visit will be discussed in further detail at your follow- up appointment, if applicable. Please Follow Up With: Luis King MD When: Please call to schedule 2 week follow up appointment. [phone]
--- NOTE | 2019-08-31 08:03 | PCM.DC.SUM ---
Discharge Date and Diagnosis Date of Admission: 08/14/19 Date of Discharge: 08/19/19 - Secondary Discharge Diagnosis Chronic Problems (Last Reviewed 03/17/19 @ 18:[address] Jennifer Crow DO) HTN (hypertension) (Chronic) Diabetes mellitus type 2 in obese (Chronic) GERD (gastroesophageal reflux disease) (Chronic) HLD (hyperlipidemia) (Chronic) Endometrial cancer (Chronic) has had MARYANA/BSO and recently a mass in the vagina was biopsied....path is pending Venous insufficiency of both lower extremities (Chronic) KIMBERLEE (obstructive sleep apnea) (Chronic) not compliant with CPAP Obesity (BMI 30.0-34.9) (Chronic) Lower extremity weakness (Chronic) Frequent falls (Chronic) Osteoarthritis (Chronic) Glaucoma (Chronic) Diverticulosis (Chronic) Mild aortic stenosis (Chronic) Diabetes mellitus (Chronic) Tinea corporis (Chronic) Dizziness (Chronic) Hospital Course and Treatment Imaging Results: Clinical Impression(s) from Imaging Studies Abdomen/Pelvis CT 08/14/19 16:50 IMPRESSION: Findings consistent with acute cholecystitis. Findings consistent with acute sigmoid diverticulitis with a small localized perforation. No evidence for abscess. Hepatosplenomegaly. Electronically Signed: Rene Green MD at 19:30 EST , Service support , Cholangiogram 08/15/19 08:00 IMPRESSION: Normal intraoperative cholangiogram. Electronically Signed: Brian Gao MD ([place]) at 14:19 EDT , Service support , Chest X-Ray 08/19/19 08:18 IMPRESSION: Bibasilar atelectasis/infiltrates with blunting of both costophrenic angles worse on the right side. Electronically Signed: Chas Martinez, at 14:35 EDT , Service support , Operations: cholecystecomy Procedures: None Summary of Care Provided: The patient is a 79 year old F who presented with abdominal pain. CT scan suggested acute cholecystitis as well as diverticulitis. Patient was taken for laparoscopic cholecystectomy and she did have acute cholecystitis. The colon was inspected and was noninflamed during surgery. She was admitted after surgery and followed closely when she was tolerating a diet she was discharged home in stable condition with home health. - Physical Exam Vitals/I&O's: Vital Signs Temp Pulse Resp BP Pulse Ox 98.0 F 77 18 134/42 H 98 08/19/19 13:27 08/19/19 13:27 08/19/19 13:27 08/19/19 13:27 08/19/19 13:27 Oxygen Flow Rate (L/min) 98 Oxygen Delivery Method Room Air Weight: 170 lb 3.15 oz Body Mass Index (BMI) 28.3 Finger Stick Blood Glucose 209 Discharge Diet: Light diet - advance as tolerated Discharge Activity: Return to Normal Activity, May Not Drive - for 2-3 days or while taking narcotic pain medicataions., May Shower Additional Activity Instructions:: Pain medication may cause nausea. You should typically eat light foods as you take your pain medications. Pain medication may also cause constipation. If this is a problem for you, please discuss with your doctor. Call your doctor if your incision/area has: Continuous Slow Oozing, Sudden Increased Bleeding, Increased Pain/ Swelling, Increased Redness, Foul Smelling Discharge, Fever of 101 or Higher Call your doctor if you observe: Fever of 101 or Higher Suture Line Care: Avoid Pulling/Pushing, Avoid Pinching/Bending Remove Dressing in (days):: 1 Cleanse incision/area with: Soap & Water Home Medications: Medications to take at Discharge Aspirin [Aspirin, Baby] 81 mg PO DAILY@0800 04/17/13 Nystatin [Mycostatin] 1 applic TOPICAL 4X/DAY PRN 04/17/13 metFORMIN HCl [Glucophage] 1,000 mg PO BIDCM 04/17/13 atorvastatin 10 mg tablet 10 mg PO QHS 10/15/17 insulin aspart U-100 100 unit/mL (3 mL) subcutaneous pen 10 unit SC TIDCM 10/15/17 insulin glargine 100 unit/mL subcutaneous solution 25 unit SC QHS 10/15/17 Latanoprost 1 drop EACH EYE QHS 10/30/17 Dulaglutide [Trulicity] 1.5 mg SQ QWEEK 03/16/19 Metoprolol Succinate 100 mg PO BID 03/16/19 Ranitidine [Zantac] 150 mg PO BIDCM 03/16/19 Acetaminophen [Tylenol] 1,000 mg PO Q8 03/19/19 Calcium (Elemental) [Os-Jerad 500] 500 mg PO BIDCM 03/19/19 Cholecalciferol (VIT D3) [Vitamin D3] 1,000 unit PO BID 03/19/19 Meclizine HCl [Antivert] 25 mg PO TID PRN PRN tab 03/19/19 Alendronate Sodium [Fosamax] 70 mg PO QWEEK #4 tab 04/13/19 Menthol/Lanolin/Calamine/Znox [Calmoseptine Ointment] 1 applic TOPICAL 0600,2200 tube 04/13/19 Mineral Oil/Petrolatum,White [Eucerin] 1 applic TOPICAL QHS jar 04/13/19 Potassium Chloride [K-Dur] 20 meq PO DAILYCM #30 tab 04/13/19 miscellaneous medical supply 1 ea MISCELLANEOUS .PRN #1 ea 06/28/19 Omeprazole [Prilosec] 20 mg PO DAILY #30 cap 08/13/19 Primary Care Physician: Wili Dunbar III, MD [Primary Care Provider] - Please Follow Up With: Luis King MD When: Please call to schedule 2 week follow up appointment. [phone] Medical Necessity - Tobacco Use Smoking Status: Former smoker Meaningful Use Info Meaningful Use Diagnoses (Choose all that apply): None applicable
== END 2019-08-19 18:06 | disposition home or self-care (01) | DRG 418 ==
LOC: ED 20:42 → PCU 21:30 → MS2 08-19 11:29
PROVIDERS: Admitting Provider Surgery; Emergency Provider Emergency Medicine; PCP Family Medicine; Visit Provider Surgery
PROC: 0FT44ZZ Resection of Gallbladder, Percutaneous Endoscopic Approach (ICD-10-PCS; CPT 47610; principal; 2019-08-15 08:00)
DX: K80.00 Calculus of gallbladder with acute cholecystitis without obstruction (principal); K57.20 Diverticulitis of large intestine with perforation and abscess without bleeding; E11.65 Type 2 diabetes mellitus with hyperglycemia; I10 Essential (primary) hypertension; E78.5 Hyperlipidemia, unspecified; K21.9 Gastro-esophageal reflux disease without esophagitis; F41.9 Anxiety disorder, unspecified; Z79.4 Long term (current) use of insulin; Z79.82 Long term (current) use of aspirin; Z79.899 Other long term (current) drug therapy
CPT/HCPCS: 36415; 71045; 71046; 74177; 74300; 76000; 80048; 80053; 81001; 82962; 83690; 84484; 85025; 85610; 88304; 93005; 97110; 97162; 97166; 97530; 97535; 97802; 99251; 99285; 99406; J7030; J7050; Q9967; A4216; G0463; J1940; J2405

== ENCOUNTER → 2019-09-02 08:03 | Outpatient (CLI) | payer MEDICARE, OTHER, SELFPAY ==
[2019-08-14 21:37] VITALS: BMI 28.3
--- NOTE | 2019-09-02 08:04 | CT_ITS ---
STUDY: CT ABDOMEN AND PELVIS WITH CONTRAST REASON FOR EXAM: Female, 79 years old. PERFORATED DIVERTICULITIS FOLLOW UP -- HX-UTERINE CA W/ SURG and amp; RADIATION RADIATION DOSAGE (If Supplied By Facility): CTDIvol = ( 15.32 ) mGy, DLP = ( 978.46 ) mGycm TECHNIQUE: Transaxial images were obtained from the dome of the diaphragm to the symphysis pubis with oral contrast. Oral and amp; IV Readi-CAT and amp; 100mL Isovue-300 was administered. Sagittal and coronal images were reconstructed. Individualized dose optimization techniques were used for this CT. COMPARISON: Comparison is made with prior study August 14, 2019. FINDINGS: Stable mild increased markings at the lung bases suggestive of scarring. Coronary artery calcifications. There is decreased attenuation of the liver consistent with steatosis. Hepatomegaly. The patient is status post cholecystectomy. Postoperative changes are seen in the gallbladder fossa. There is mild splenomegaly. Normal pancreas. Normal bilateral adrenal glands. Normal right kidney. Normal left kidney. Normal visualized stomach. Normal small intestine. There is diverticulosis, with thickening of the colon wall, and pericolonic inflammation changes consistent with acute diverticulitis. Since prior study, there has been mild degree of improvement. The appendix is visualized and appears normal. There is diffuse atherosclerotic calcification of the abdominal aorta, without a demonstrated aneurysm. Normal inferior vena cava. There is borderline retroperitoneal lymphadenopathy with enlarged nodes no greater than 10mm in the short axis diameter. Normal urinary bladder. There is absence of the uterus consistent with a prior hysterectomy. Normal abdominal wall. There are diffuse degenerative changes of the visualized lumbar spine. CT/Abdomen/Pelvis WITH Contrast IMPRESSION: Status post cholecystectomy as compared to prior study with residual postoperative changes in the gallbladder fossa. Hepatosplenomegaly with diffuse fatty infiltration of the liver. Sigmoid diverticulitis. The inflammatory changes in the sigmoid mesentery have improved as compared to prior study. Electronically Signed: Chas Martinez, at 8:48 EDT , Service support ,
== END ==
PROVIDERS: PCP Family Medicine; Referring Provider Surgery; Visit Provider Surgery
DX: K57.20 Diverticulitis of large intestine with perforation and abscess without bleeding (principal)
CPT/HCPCS: 74177; Q9967

== ENCOUNTER 2019-11-30 07:31 | Day surgery (SDC) | payer MEDICARE, OTHER, SELFPAY ==
--- NOTE | 2019-11-30 | COLBX_PTH ---
PATIENT: NOELLE DIXON LOC: EN U#:[id number] AGE/SX: 79/F ROOM: RE11/30/[address]: Dr. Luis King MD : 1940 BED: DIS: 11/30/2019 SPEC #: [id number] RECD: 11/30/19 13:41 STATUS: JAZMÍN SUSAN #: [id number] COSTA: 11/30/19 00:[address]: Luis King DEPT: SURGICAL PATHOLOGY RECD BY: Kj Ford ENTERED: 11/30/19 13:41 SP TYPE: COLON BX OTHR DR: Dr. Wili Dunbar III, MD Tissues: COLON BIOPSY Procedures: Surgery Specimen Level IV HEADER OPERATION: Colonoscopy (MAC) PRE-OP DIAGNOSIS: Perforated diverticulitis TISSUE SUBMITTED: Appendiceal orifice polyp MICROSCOPIC DIAGNOSIS Appendiceal orifice polyp, biopsy: Benign mucosal polyp, inflamed. AM:francisco 12/01/19 COMMENT Case has been reviewed in consultation with Dr. Rodriguez who concurs with the above diagnosis. IDC:[email or web address] MICROSCOPIC DESCRIPTION Slides are reviewed. GROSS DESCRIPTION Received in fixative is one container labeled with the patient's name and designated appendiceal orifice polyp. The specimen consists of one irregular fragment of light murillo soft tissue that measures 0.3 x 0.2 x 0.1 cm. Fragments of mucoidy fecal material are also noted. The specimen is totally submitted in one cassette. / MILI:francisco 11/30/19 TC:5 CPT: 87819
[2019-11-30 07:54] VITALS: BP 150/57; PULSE 75; RESP 16; TEMP 36.3; O2SAT 100; BMI 27.3
--- NOTE | 2019-11-30 08:11 | H&P.OPEN ---
History of Present Illness Date of Admission: 11/30/19 The patient is a 79 year old F here for colonoscopy. The patient had an episode of diverticulitis with microperforation. Her last colonoscopy was over 10 years ago. She has not been having problems since her episode of diverticulitis in August. She is having no abdominal pain or blood in her stool currently. Past Medical/Surgical History - Planned Operation Planned Operative Procedure/s: cscope Date of Operative Procedure: 11/30/19 Permit Signed: No S.O.S: No Is This Patient Having a Total Joint: No - Previous Hospitalizations/Surgeries HX Hospitalizations: No HX of Surgeries: 1978 hemorrhoidectomy. rectal fistulectomy. 2012 hysterectomy total for uterine ca. colonoscopy. uterine ablation d&c. gallbladder 08/2019 Any Problems With Anesthesia: No You/Your Family Experience Fever (Hyperthermia) With Anes: No Cholinesterase deficiency: No - Cardiovascular Hx Chest Pain within Last 2 months: No Hx of Irregular Heartbeat and/or Afib: No - heart murmur Hx Heart Attack: No Hx Congestive Heart Failure: No Hx Rheumatic Fever: No Hx Hypertension: Yes - controlled with med Hx Internal Defibrillator: No Hx Pacemaker: No Hx Cardiac Catheterization: No Hx Cardiac Surgery/Stents/Etc.: No Hx Stress Test: Yes - over 10 yrs HX Edema: No Hx Pain in Legs when Walking/Leg Cramps: Yes - varicose veins and caues pain - Respiratory Chronic Cough: Yes HX of Shortness of Breath: Yes - sob with 2 flights of stairs Hoarseness: No Hx Chronic Obstructive Pulmonary Disease (COPD): No Hx Asthma: No Hx Emphysema: No Hx Sleep Apnea: Yes CPAP: Yes - doesn't wear machine BIPAP: No Hx Respiratory Tract Infection/Cold (presently): No - . Result (for STOP score): Positive Hx Smoking: Yes - quit 1996 Smoking Status: Former smoker - Gastrointestinal Hx Gastroesophageal Reflux: Yes Controlled With Meds: Yes Hx Gastrointestinal Disorders: Yes - diverticulitis Hx Gastrointestinal Bleed: No Hx Ulcer: No Hx Hiatal Hernia: No Difficulty Chewing/Swallowing: No Special diet followed at home: Yes - diabetic Hx Unplanned Weight Loss of 20#: No HX Unplanned Weight Gain of 20#: No - Neurological Hx Seizures: No HX Syncope/Blackout Spells/Unconsciousness: Yes - dizzy spells at times Hx Transient Ischemic Attacks (TIA): No Hx Multiple Sclerosis: No Hx Parkinson's Disease: No Hx Head/Neck Injury: No Hx Headaches: No Hx Back Injury/Pain: No Recent Onset of Speech Difficulty: No Restless Legs: No Does patient have nerve stimulator: No Patient instructed to have device shut off: No Rep notified?: No - Blood Disorder Hx Leukemia: No Bleeding Tendencies: Yes - easy bleeding Hx Deep Vein Thrombosis: No Hx High Cholesterol: Yes - on med Blood Transmitted Disease: No Hx Hepatitis: No Hx Cirrhosis: No Hx Anemia: No Hx Blood Disorders: No - Reproduction Is Patient Lactating: No Hx Hysterectomy: Yes Hx Tubal Ligation: No Are You Post Menopause: Yes - Genitourinary Hx Renal Disease: No Hx Dialysis: No - Musculoskeletal Hx Arthritis: Yes - hands Hx Rheumatoid Arthritis: No Hx Gout: No Recent Onset of an Orthopedic Problem: No - Endocrine Hx Diabetes: Yes - type 2 Insulin: Yes Thyroid Disease: No Hx Steroid Therapy: No - Psycho/Social Hx Substance Use: No Hx Alcohol Use: No Hx Anxiety: No Hx Depression: No Mental Illness: No Hx Dementia: No - Miscellaneous Hx Cancer: Yes - uterine/had hysterectomy Recent Exposure to Contagious Disease: No Active MRSA: No Hx of C-Diff: No Any Loose Teeth: No Allergies candesartan cilexetil [From Atacand] Adverse Reaction (Verified 11/30/19 07:53) Abd cramps/diarrhea lisinopril Adverse Reaction (Verified 11/30/19 07:53) Vomiting losartan potassium [From Cozaar] Adverse Reaction (Verified 11/30/19 07:53) Other pioglitazone HCl [From Actos] Adverse Reaction (Verified 11/30/19 07:53) Other prednisone Adverse Reaction (Verified 11/30/19 07:53) Swelling simvastatin [From Zocor] Adverse Reaction (Verified 11/30/19 07:53) Other sitagliptin phosphate [From Januvia] Adverse Reaction (Verified 11/30/19 07:53) Upset Stomach Sulfa (Sulfonamide Antibiotics) Adverse Reaction (Verified 11/30/19 07:53) Other Maternal Cancer - breast in her mother Sibling - - 2 brothers with leukemia - Discharge Is Pt Admitted From a Penitentiary, or a Senior Care: No Special Equipment Used at Home: cane/walker After D/C, Where Do you Plan to Go: Return Home - From the PAT History Number of Risk Factors: 4 - Physical Exam Vitals/I&O's: Vital Signs Temp Pulse Resp BP Pulse Ox 97.3 F L 75 16 150/57 H 100 11/30/19 07:54 11/30/19 07:54 11/30/19 07:54 11/30/19 07:54 11/30/19 07:54 Oxygen Delivery Method Room Air Weight: 166 lb 14.239 oz Body Mass Index (BMI) 27.3 Finger Stick Blood Glucose 209 General: Alert, Oriented x3 Lungs: Normal air movement Cardiovascular: Regular rate, Regular Rhythm Abdomen: Soft, Non Tender, Non-Distended Assessment/Plan All Active Problems (Last Reviewed 03/17/19 @ 18:[address] Jennifer Crow, ) Personal history of colonic polyps (Acute) Closed left ankle fracture (Acute) Inability to ambulate due to ankle or foot (Acute) Hyponatremia (Resolved) Dehydration (Resolved) Urinary tract infection (Acute) Debility (Acute) Acute cholecystitis (Acute) Perforation of sigmoid colon due to diverticulitis (Acute) Perforation of sigmoid colon due to diverticulitis (Acute) 79-year-old female with history of perforated diverticulitis 1. I recommended colonoscopy to rule out malignancy as her last colonoscopy was over 10 years ago. 2. I explained endoscopy in detail to the patient. I explained the risks including but not limited to stroke or heart attack with anesthesia, perforation of the GI tract, bleeding, infection. I explained that any of these could necessitate further emergency surgery. The patient understands and all questions were answered sufficiently. The patient wishes to proceed with procedure. 3. We discussed the current risks associated with COVID-19. While it is understood that there is a community spread of COVID-19, the risk of rivera COVID-19 while at [facility] ([facility]) is very low; however, the risk cannot be completely mitigated because of the community spread of the disease. We discussed in detail the risk of exposure to and/or potential harm posed by the COVID-19 virus with having a surgery/procedure at this time versus the risk of delaying the surgery/procedure. It is not possible to know either the risk of delaying the surgery or procedure or chance of getting an infection with perfect accuracy, but a joint decision was made to proceed at this time with the scheduled surgery/procedure as indicated on the consent form. Patient was notified that we will need to comply with any screening or testing [facility] wishes to perform or that surgery may be delayed for any positive results. Luis King MD Pager: [facility] [address] [place] [address] [address] [place] [address] Office: Surgery Risks - Colonoscopy Risks Include but are not Limited To: Risks include but are not limited to: Bleeding, perforation requiring further surgery, inability to complete colonoscopy requiring barium enema.
[2019-11-30 08:21] LABS: Bedside Glucose 135 mg/dL (70-110)
[2019-11-30] MEDS: Lactated Ringers 1,000 ML 100 ML IV (08:58)
[2019-11-30 09:50] VITALS: BP 117/59; BP 150/57; PULSE 77; RESP 16; TEMP 36.5; O2SAT 100
--- NOTE | 2019-11-30 09:51 | OP.COLON_ITS ---
Patient Name: Irma Gloria Procedure Date: 11/30/2019 8:22 AM Date of : 1940 Age: 79 Procedure: Colonoscopy Indications: Follow-up of diverticulitis Providers: Luis King MD Referring MD: Wili Dunbar Iii Medicines: Monitored Anesthesia Care Patient Profile: This is an 79 year old female. Refer to note in patient chart for documentation of history and physical. Last Colonoscopy: 10 years ago. Complications: No immediate complications. Estimated blood loss: Minimal. Procedure: Pre-Anesthesia Assessment: - Prior to the procedure, a History and Physical was performed, and patient medications and allergies were reviewed. The patient's tolerance of previous anesthesia was also reviewed. The risks and benefits of the procedure and the sedation options and risks were discussed with the patient. All questions were answered, and informed consent was obtained. Prior Anticoagulants: The patient has taken no previous anticoagulant or antiplatelet agents. After reviewing the risks and benefits, the patient was deemed in satisfactory condition to undergo the procedure. After I obtained informed consent, the scope was passed under direct vision. Throughout the procedure, the patient's blood pressure, pulse, and oxygen saturations were monitored continuously. The pediatric colonoscope was introduced through the anus and advanced to the cecum, identified by appendiceal orifice and ileocecal valve. The colonoscopy was performed without difficulty. The patient tolerated the procedure well. The quality of the bowel preparation was good. Scope In: 9:34:03 AM Scope Withdrawal Time 0 hours 6 minutes 1 second Scope Out: 9:46:25 AM Total Procedure Duration Time 0 hours 12 minutes 22 seconds Findings: The entire examined colon appeared normal on direct and retroflexion views. A polyp was found in the appendiceal orifice. The polyp was removed with a hot snare. Resection and retrieval were complete. Impression: - The entire examined colon is normal on direct and retroflexion views. - One polyp at the appendiceal orifice, removed with a hot snare. Resected and retrieved. Recommendation: - Discharge patient to home. - Resume previous diet. - Continue present medications. - Await pathology results. - Repeat colonoscopy is not recommended due to current age (66 years or older) for screening purposes. Procedure Code(s): --- Professional --- 52916, Colonoscopy, flexible; with removal of tumor(s), polyp(s), or other lesion(s) by snare technique Diagnosis Code(s): --- Professional --- D12.1, Benign neoplasm of appendix K57.32, Diverticulitis of large intestine without perforation or abscess without bleeding CPT copyright 2017 [employer]. All rights reserved. The codes documented in this report are preliminary and upon general manager in training review may be revised to meet current compliance requirements. Luis King MD 11/30/2019 9:51:36 AM This report has been signed electronically. Number of Addenda: 0 Note Initiated On: 11/30/2019 8:22 AM
--- NOTE | 2019-11-30 09:52 | OP.CCLET_ITS ---
11/30/2019 Wili Dunbar Iii [address] [place] [address] Re : Colonoscopy procedure for Irma Gloria Dear Dr. Dunbar This procedure was performed on Saturday, November 30, 2019. My impressions and recommendations are as follows: Impressions : - The entire examined colon is normal on direct and retroflexion views. - One polyp at the appendiceal orifice, removed with a hot snare. Resected and retrieved. Recommendations : - Discharge patient to home. - Resume previous diet. - Continue present medications. - Await pathology results. - Repeat colonoscopy is not recommended due to current age (66 years or older) for screening purposes. My findings are described in the full procedure note, which is enclosed. If I can be of further assistance, please feel free to contact me at Doctor phone number(s): , Work: . Sincerely, Luis King MD 11/30/2019 9:51:36 AM This report has been signed electronically.
[2019-11-30 09:55] VITALS: BP 123/62; BP 150/57; PULSE 77; RESP 16; O2SAT 100
[2019-11-30 10:00] VITALS: BP 119/79; BP 150/57; PULSE 77; RESP 16; O2SAT 100
[2019-11-30 10:05] VITALS: BP 132/68; BP 150/57; PULSE 85; RESP 16; TEMP 36.3; O2SAT 100
[2019-11-30 10:50] VITALS: BP 150/57
== END 2019-11-30 10:55 | disposition home or self-care (01) ==
LOC: EN 07:32 → AC 07:34
PROVIDERS: Anesthesiology; PCP Family Medicine; Referring Provider Family Medicine; Visit Provider Surgery
PROC: 0DJD8ZZ Inspection of Lower Intestinal Tract, Via Natural or Artificial Opening Endoscopic (ICD-10-PCS; CPT 45378; principal; 2019-11-30 08:25)
DX: Z12.11 Encounter for screening for malignant neoplasm of colon (principal); D12.1 Benign neoplasm of appendix; K57.32 Diverticulitis of large intestine without perforation or abscess without bleeding; I10 Essential (primary) hypertension; E11.9 Type 2 diabetes mellitus without complications; E78.00 Pure hypercholesterolemia, unspecified; G47.30 Sleep apnea, unspecified; K21.9 Gastro-esophageal reflux disease without esophagitis; Z78.0 Asymptomatic menopausal state; Z79.4 Long term (current) use of insulin; Z79.82 Long term (current) use of aspirin; Z79.899 Other long term (current) drug therapy; Z87.19 Personal history of other diseases of the digestive system; Z86.010 Personal history of colon polyps; Z85.42 Personal history of malignant neoplasm of other parts of uterus; Z87.891 Personal history of nicotine dependence
CPT/HCPCS: 45385; 82962; 87635; 88305; G2023; J7120; J2405; U0003

== ENCOUNTER 2020-07-14 15:10 | Outpatient (RCR) | payer MEDICARE, OTHER, SELFPAY | END 2020-07-14 23:59 | LOC: IMMUN 15:10 | PROVIDERS: PCP Family Medicine; Referring Provider Family Medicine; Visit Provider Family Medicine | DX: Z23 Encounter for immunization (principal) | CPT/HCPCS: 0011A; 0012A ==